=== PATIENT | male | born 1950 | race Caucasian/White ===

== ENCOUNTER → 2017-10-21 08:41 | Outpatient (CLI) | payer MEDICARE, OTHER, SELFPAY ==
--- NOTE | 2017-10-21 | DI.US.S_ITS ---
PROCEDURE: US ABDOMEN COMPLETE INDICATIONS: HEALTH SCREENING FOR POSSIBLE RENAL TRANSPLANT TECHNIQUE: Real-time scanning was performed of the abdominal and retroperitoneal organs, with image documentation. COMPARISON: None. FINDINGS: Liver: Liver is normal in size and homogeneous in echotexture. Gallbladder: Surgically absent. Biliary ducts: Intrahepatic bile ducts are non-dilated. Extrahepatic bile duct caliber measures 11 mm. Normal is 6-7 mm or less in diameter, or 10 mm or less post-cholecystectomy. Pancreas: Not visualized. Spleen: Spleen is normal in size and homogeneous in echotexture. Kidneys: Surgically absent. Aorta: Visualized aorta is normal in caliber at less than 3 cm. [place]: None visualized. IVC: Intrahepatic inferior vena cava is patent. Miscellaneous: No free abdominal fluid. IMPRESSION: Limited exam demonstrating no acute abnormalities. Dictated by: Tony CARRASCO Interpreted: Kit Armas MD on 10/21/2017 at 10:11 Approved by: Som Armas M.D. on 10/21/2017 at 10:48
--- NOTE | 2017-10-21 | DI.RAD.S_ITS ---
PROCEDURE: XR CHEST 2V INDICATIONS: HEALTH SCREENING FOR POSSIBLE RENAL TRANSPLANT TECHNIQUE: 2 views of the chest were acquired. COMPARISON: Located Within [facility], , CHEST 1 VIEW, 06/11/2017, 3:14. FINDINGS: Surgical changes and devices: Tunneled hemodialysis catheter is unchanged. Lungs and pleura: No pleural effusions or pneumothorax. Lungs are clear. Mediastinum: Mediastinal contours are normal. Heart size is normal. Bones and chest wall: No suspicious bony abnormalities. There is DISH of the mid thoracic spine. Soft tissues appear unremarkable. IMPRESSION: No acute cardiopulmonary findings. Dictated by: Mishel Mccann M.D. on 10/21/2017 at 9:20 Approved by: Mishel Mccann M.D. on 10/21/2017 at 9:21
== END ==
PROVIDERS: Visit Provider Student in an Organized Health Care Education/Training Program
DX: N18.6 End stage renal disease (principal); Z76.82 Awaiting organ transplant status
CPT/HCPCS: 71046; 76700

== ENCOUNTER → 2019-02-20 12:11 | Outpatient (CLI) | payer MEDICARE, OTHER, SELFPAY ==
[2019-02-23 09:09] LABS: Sex Hormone Binding Globulin 51 nmol/L (22-77); Testosterone, Bioavailable 58.9 ng/dL (15.0-150.0); Testosterone, Total 347 ng/dL (250-1100); Testosterone,Free 31.3 pg/mL (6.0-73.0)
[2019-02-26 10:32] LABS: Albumin 4.1
== END ==
DX: E29.1 Testicular hypofunction (principal)
CPT/HCPCS: 36415; 82040; 84270; 84403

== ENCOUNTER → 2019-06-08 14:19 | Outpatient (CLI) | payer MEDICARE, OTHER, SELFPAY ==
--- NOTE | 2019-06-08 | DI.RAD.S_ITS ---
PROCEDURE: XR CHEST 2V INDICATIONS: SOB TECHNIQUE: 2 views of the chest were acquired. COMPARISON: [facility], CR, XR CHEST 2V, 10/21/2017, 8:56. FINDINGS: Surgical changes and devices: Right upper quadrant surgical clips.. Lungs and pleura: Lungs are clear. No pleural effusions or pneumothorax. Mediastinum: Mediastinal contours are normal. Heart size is normal. Bones and chest wall: No suspicious bony abnormalities. Soft tissues appear unremarkable. IMPRESSION: No acute disease Dictated by: Edmond Goodwin M.D. on 06/08/2019 at 16:30 Approved by: dEmond Goodwin M.D. on 06/08/2019 at 16:31
== END ==
PROVIDERS: Visit Provider Student in an Organized Health Care Education/Training Program
DX: R06.02 Shortness of breath (principal)
CPT/HCPCS: 71046

== ENCOUNTER → 2019-12-05 09:32 | Outpatient (CLI) | payer MEDICARE, OTHER, SELFPAY ==
[2019-12-05 10:47] LABS: Add Manual Diff / Slide Review NO; Basophils Absolute Auto 100 /uL (0-100); Basophils Percent Auto 0.6 % (0-2); Eosinophils Absolute Auto 0 /uL (0-450); Eosinophils Percent Auto 0.2 % (2-4); Hematocrit 27.3 % (41-53); Hemoglobin 8.7 g/dL (13.5-17.5); Lymphocytes Absolute Auto 500 /uL (1100-4500); Mean Corpuscular HGB Conc 31.9 % (30-36); Mean Corpuscular Hemoglobin 30.4 PG (26-34); Mean Corpuscular Volume 95.3 fL (80-100); Monocytes Absolute Auto 500 /uL (0-900); Monocytes Percent Auto 5.3 % (3-14); Neutrophils Absolute Auto 8400 /uL (1500-7000); Neutrophils Percent Auto 88.9 % (50-75); Platelet Count 292 X10^3/uL (150-400); Red Blood Cell Count 2.86 X10^6/uL (4.5-5.9); Red Cell Distribution Width 17.8 % (11.6-14.8); White Blood Cell Count 9.5 X10^3/uL (4.5-11.0)
[2019-12-05 11:02] LABS: Cholesterol 137 mg/dL (140-199); HDL Cholesterol 48 mg/dL (40-60); LDL Cholesterol Calculated 48 mg/dL (<100); Triglycerides 205 mg/dL (35-150)
[2019-12-05 11:04] LABS: Alanine Aminotransferase 18 IU/L (<50); Albumin 4.3 g/dL (3.5-5.0); Albumin Globulin Ratio 1.5 (1.0-2.8); Alkaline Phosphatase 129 U/L (38-126); Aspartate Aminotransferase 26 IU/L (17-59); BUN Creatinine Ratio 21.9 (6-22); Bilirubin Total 0.4 mg/dL (0.2-1.3); Blood Urea Nitrogen 77 mg/dL (9-20); Calcium 10.5 mg/dL (8.4-10.2); Carbon Dioxide 16 mmol/L (22-32); Chloride 119 mmol/L (98-107); Estimated Glomerular Filt Rate 17.3 mL/min (>60); Globulin 2.9 g/dL (1.7-4.1); Glucose 98 mg/dL (80-110); HEMOLYSIS 17 (0-50); Magnesium 2.2 mg/dL (1.6-2.3); Phosphorous 4.4 mg/dL (2.3-3.7); Sodium 145 mmol/L (137-145); Total Protein 7.2 g/dL (6.3-8.2)
[2019-12-05 11:59] LABS: Hemoglobin A1C% w Est Avg Glu 6.5 % (4.0-6.0)
[2019-12-06 07:44] LABS: Tacrolimus 6.7 ng/mL (2.0-20.0)
== END ==
PROVIDERS: Referring Provider Internal Medicine Nephrology; Visit Provider Internal Medicine
DX: E78.2 Mixed hyperlipidemia (principal); E11.9 Type 2 diabetes mellitus without complications; Z94.0 Kidney transplant status; Z48.298 Encounter for aftercare following other organ transplant; T86.90 Unspecified complication of unspecified transplanted organ and tissue; E83.40 Disorders of magnesium metabolism, unspecified
CPT/HCPCS: 80053; 80061; 80197; 83036; 83735; 84100; 85025

== ENCOUNTER → 2019-12-14 08:49 | Outpatient (CLI) | payer MEDICARE, OTHER, SELFPAY ==
[2019-12-14 09:36] LABS: Add Manual Diff / Slide Review NO; Basophils Absolute Auto 0 /uL (0-100); Basophils Percent Auto 0.8 % (0-2); Eosinophils Absolute Auto 100 /uL (0-450); Eosinophils Percent Auto 1.4 % (2-4); Hematocrit 25.2 % (41-53); Hemoglobin 8.3 g/dL (13.5-17.5); Lymphocytes Absolute Auto 500 /uL (1100-4500); Mean Corpuscular HGB Conc 32.8 % (30-36); Mean Corpuscular Hemoglobin 31.2 PG (26-34); Mean Corpuscular Volume 94.9 fL (80-100); Monocytes Absolute Auto 500 /uL (0-900); Monocytes Percent Auto 9.1 % (3-14); Neutrophils Absolute Auto 4800 /uL (1500-7000); Neutrophils Percent Auto 79.7 % (50-75); Platelet Count 301 X10^3/uL (150-400); Red Blood Cell Count 2.66 X10^6/uL (4.5-5.9); Red Cell Distribution Width 17.9 % (11.6-14.8)
[2019-12-14 09:51] LABS: Alanine Aminotransferase 10 IU/L (<50); Albumin 3.6 g/dL (3.5-5.0); Albumin Globulin Ratio 1.6 (1.0-2.8); Alkaline Phosphatase 149 U/L (38-126); Aspartate Aminotransferase 15 IU/L (17-59); Bilirubin Total 0.2 mg/dL (0.2-1.3); Blood Urea Nitrogen 34 mg/dL (9-20); Calcium 9.8 mg/dL (8.4-10.2); Carbon Dioxide 18 mmol/L (22-32); Chloride 118 mmol/L (98-107); Estimated Glomerular Filt Rate 24.3 mL/min (>60); Globulin 2.3 g/dL (1.7-4.1); Glucose 167 mg/dL (80-110); HEMOLYSIS < 15 (0-50); Magnesium 1.9 mg/dL (1.6-2.3); Phosphorous 3.1 mg/dL (2.3-3.7); Sodium 141 mmol/L (137-145); Total Protein 5.9 g/dL (6.3-8.2)
[2019-12-14 09:57] LABS: Potassium 5.5 mmol/L (3.4-5.1)
[2019-12-15 08:41] LABS: Tacrolimus 6.7 ng/mL (2.0-20.0)
== END ==
PROVIDERS: Referring Provider Internal Medicine Nephrology; Visit Provider Internal Medicine Nephrology
DX: Z94.0 Kidney transplant status (principal); Z48.298 Encounter for aftercare following other organ transplant; T86.90 Unspecified complication of unspecified transplanted organ and tissue; E83.40 Disorders of magnesium metabolism, unspecified
CPT/HCPCS: 36415; 80053; 80197; 83735; 84100; 85025

== ENCOUNTER → 2019-12-21 08:48 | Outpatient (CLI) | payer MEDICARE, OTHER, SELFPAY ==
[2019-12-21 09:18] LABS: Add Manual Diff / Slide Review NO; Basophils Absolute Auto 100 /uL (0-100); Basophils Percent Auto 0.7 % (0-2); Eosinophils Absolute Auto 100 /uL (0-450); Eosinophils Percent Auto 1.4 % (2-4); Hematocrit 28.1 % (41-53); Hemoglobin 9.2 g/dL (13.5-17.5); Lymphocytes Absolute Auto 500 /uL (1100-4500); Lymphocytes Percent Auto 6.8 % (25-40); Mean Corpuscular HGB Conc 32.6 % (30-36); Mean Corpuscular Volume 94.8 fL (80-100); Monocytes Absolute Auto 700 /uL (0-900); Monocytes Percent Auto 8.9 % (3-14); Neutrophils Absolute Auto 6600 /uL (1500-7000); Neutrophils Percent Auto 82.2 % (50-75); Platelet Count 283 X10^3/uL (150-400); Red Blood Cell Count 2.97 X10^6/uL (4.5-5.9); Red Cell Distribution Width 18.4 % (11.6-14.8)
[2019-12-21 09:27] LABS: Alanine Aminotransferase 12 IU/L (<50); Albumin 4.2 g/dL (3.5-5.0); Albumin Globulin Ratio 1.7 (1.0-2.8); Alkaline Phosphatase 143 U/L (38-126); Aspartate Aminotransferase 19 IU/L (17-59); BUN Creatinine Ratio 21.4 (6-22); Bilirubin Total 0.4 mg/dL (0.2-1.3); Blood Urea Nitrogen 48 mg/dL (9-20); Carbon Dioxide 20 mmol/L (22-32); Chloride 113 mmol/L (98-107); Estimated Glomerular Filt Rate 29.1 mL/min (>60); Globulin 2.5 g/dL (1.7-4.1); Glucose 189 mg/dL (80-110); HEMOLYSIS < 15 (0-50); Magnesium 1.7 mg/dL (1.6-2.3); Phosphorous 2.9 mg/dL (2.3-3.7); Potassium 5.1 mmol/L (3.4-5.1); Sodium 139 mmol/L (137-145); Total Protein 6.7 g/dL (6.3-8.2)
[2019-12-21 12:01] LABS: Appearance Urine UA CLEAR; Bilirubin Urine UA NEGATIVE (NEGATIVE); Color Urine UA YELLOW; Glucose Urine UA TRACE g/dL (Negative); Ketones Urine UA NEGATIVE (NEGATIVE); Leukocyte Esterase Urine UA NEGATIVE (NEGATIVE); Nitrite Urine UA NEGATIVE (Negative); Occult Blood Urine UA NEGATIVE (Negative); Protein Urine UA TRACE (Negative); Urobilinogen Urine UA 0.2 E.U./dL (0.2); pH Urine UA 6.5 (4.5-8.0)
[2019-12-21 12:09] LABS: Amorphous Sediment Urine 2+; Bacteria Urine Occasional (0-1); Culture Indicated Urine Specimen Cultured; RBC Urine 0-1/HPF (0-5/HPF); WBC Urine 1-5/HPF (0-5/HPF)
[2019-12-22 08:09] LABS: Tacrolimus 6.4 ng/mL (2.0-20.0)
[2019-12-22 12:08] LABS: Creatinine Urine Random 85.8 mg/dL; Protein (Total) Urine Random 72 mg/dL (0-12); Protein Creatinine Ratio Urine 0.83 GRAM/24H
== END ==
PROVIDERS: PCP Internal Medicine; Referring Provider Internal Medicine; Visit Provider Internal Medicine Nephrology
DX: Z97.0 Presence of artificial eye (principal); Z48.298 Encounter for aftercare following other organ transplant; T86.90 Unspecified complication of unspecified transplanted organ and tissue; N39.0 Urinary tract infection, site not specified; Z94.0 Kidney transplant status; E83.40 Disorders of magnesium metabolism, unspecified
CPT/HCPCS: 36415; 80053; 80197; 81001; 82570; 83735; 84100; 84156; 85025; 87077; 87086; 87186

== ENCOUNTER → 2019-12-25 08:56 | Outpatient (CLI) | payer MEDICARE, OTHER, SELFPAY | PROVIDERS: PCP Internal Medicine; Referring Provider Internal Medicine Nephrology; Visit Provider Internal Medicine Nephrology | DX: N39.0 Urinary tract infection, site not specified (principal) | CPT/HCPCS: 87077; 87086; 87186; 87205 ==

== ENCOUNTER → 2019-12-30 07:30 | Outpatient (CLI) | payer MEDICARE, OTHER, SELFPAY ==
[2019-12-30 07:56] LABS: Add Manual Diff / Slide Review NO; Basophils Absolute Auto 100 /uL (0-100); Basophils Percent Auto 0.9 % (0-2); Eosinophils Absolute Auto 200 /uL (0-450); Eosinophils Percent Auto 2.1 % (2-4); Hematocrit 28.5 % (41-53); Hemoglobin 9.3 g/dL (13.5-17.5); Lymphocytes Absolute Auto 600 /uL (1100-4500); Lymphocytes Percent Auto 8.7 % (25-40); Mean Corpuscular HGB Conc 32.8 % (30-36); Mean Corpuscular Hemoglobin 31.2 PG (26-34); Mean Corpuscular Volume 95.1 fL (80-100); Monocytes Absolute Auto 800 /uL (0-900); Monocytes Percent Auto 10.9 % (3-14); Neutrophils Absolute Auto 5700 /uL (1500-7000); Neutrophils Percent Auto 77.4 % (50-75); Platelet Count 229 X10^3/uL (150-400); Red Cell Distribution Width 17.8 % (11.6-14.8); White Blood Cell Count 7.4 X10^3/uL (4.5-11.0)
[2019-12-30 08:06] LABS: Alanine Aminotransferase 11 IU/L (<50); Albumin 3.9 g/dL (3.5-5.0); Albumin Globulin Ratio 1.6 (1.0-2.8); Alkaline Phosphatase 122 U/L (38-126); Aspartate Aminotransferase 17 IU/L (17-59); BUN Creatinine Ratio 14.7 (6-22); Bilirubin Total 0.4 mg/dL (0.2-1.3); Blood Urea Nitrogen 33 mg/dL (9-20); Calcium 9.8 mg/dL (8.4-10.2); Carbon Dioxide 23 mmol/L (22-32); Chloride 111 mmol/L (98-107); Estimated Glomerular Filt Rate 29.1 mL/min (>60); Globulin 2.5 g/dL (1.7-4.1); Glucose 154 mg/dL (80-110); HEMOLYSIS < 15 (0-50); Magnesium 1.6 mg/dL (1.6-2.3); Phosphorous 2.9 mg/dL (2.3-3.7); Potassium 4.3 mmol/L (3.4-5.1); Sodium 141 mmol/L (137-145); Total Protein 6.4 g/dL (6.3-8.2)
[2019-12-31 14:09] LABS: Tacrolimus 4.2 ng/mL (2.0-20.0)
== END ==
PROVIDERS: PCP Internal Medicine; Referring Provider Internal Medicine Nephrology; Visit Provider Internal Medicine Nephrology
DX: T86.90 Unspecified complication of unspecified transplanted organ and tissue (principal); E83.40 Disorders of magnesium metabolism, unspecified; Z94.0 Kidney transplant status; Z48.298 Encounter for aftercare following other organ transplant
CPT/HCPCS: 36415; 80053; 80197; 83735; 84100; 85025

== ENCOUNTER → 2020-01-05 08:01 | Outpatient (CLI) | payer MEDICARE, OTHER, SELFPAY ==
[2020-01-05 08:35] LABS: Hemoglobin 9.5 g/dL (13.5-17.5); White Blood Cell Count 5.6 X10^3/uL (4.5-11.0)
[2020-01-05 08:38] LABS: Hematocrit 29.1 % (41-53); Mean Corpuscular HGB Conc 32.7 % (30-36); Mean Corpuscular Hemoglobin 31.1 PG (26-34); Platelet Count 273 X10^3/uL (150-400); Red Blood Cell Count 3.07 X10^6/uL (4.5-5.9); Red Cell Distribution Width 17.6 % (11.6-14.8)
[2020-01-05 08:43] LABS: Add Manual Diff / Slide Review YES
[2020-01-05 08:49] LABS: Alanine Aminotransferase 10 IU/L (<50); Albumin 3.8 g/dL (3.5-5.0); Alkaline Phosphatase 141 U/L (38-126); Aspartate Aminotransferase 15 IU/L (17-59); BUN Creatinine Ratio 17.9 (6-22); Bilirubin Total 0.3 mg/dL (0.2-1.3); Blood Urea Nitrogen 34 mg/dL (9-20); Calcium 9.8 mg/dL (8.4-10.2); Carbon Dioxide 26 mmol/L (22-32); Chloride 110 mmol/L (98-107); Estimated Glomerular Filt Rate 35.2 mL/min (>60); Glucose 208 mg/dL (80-110); Magnesium 1.7 mg/dL (1.6-2.3); Phosphorous 2.6 mg/dL (2.3-3.7); Potassium 4.7 mmol/L (3.4-5.1); Sodium 140 mmol/L (137-145)
[2020-01-05 08:50] LABS: Albumin Globulin Ratio 1.7 (1.0-2.8); Globulin 2.2 g/dL (1.7-4.1); HEMOLYSIS < 15 (0-50)
[2020-01-05 09:10] LABS: Neutrophils Absolute Manual 4088 /uL (3000-5900); Total Cells Counted 100
[2020-01-05 09:11] LABS: Anisocytosis 1+
[2020-01-06 16:29] LABS: Tacrolimus 5.5 ng/mL (2.0-20.0)
== END ==
PROVIDERS: PCP Internal Medicine; Referring Provider Internal Medicine Nephrology; Visit Provider Internal Medicine Nephrology
DX: Z48.298 Encounter for aftercare following other organ transplant (principal); Z94.0 Kidney transplant status; T86.90 Unspecified complication of unspecified transplanted organ and tissue; E83.40 Disorders of magnesium metabolism, unspecified
CPT/HCPCS: 36415; 80053; 80197; 83735; 84100; 85025

== ENCOUNTER → 2020-01-12 07:34 | Outpatient (CLI) | payer MEDICARE, OTHER, SELFPAY ==
[2020-01-12 08:39] LABS: Add Manual Diff / Slide Review NO; Basophils Absolute Auto 100 /uL (0-100); Basophils Percent Auto 1.2 % (0-2); Eosinophils Absolute Auto 200 /uL (0-450); Hematocrit 30.3 % (41-53); Lymphocytes Absolute Auto 900 /uL (1100-4500); Lymphocytes Percent Auto 12.6 % (25-40); Mean Corpuscular HGB Conc 32.9 % (30-36); Mean Corpuscular Hemoglobin 31.3 PG (26-34); Monocytes Absolute Auto 700 /uL (0-900); Monocytes Percent Auto 10.2 % (3-14); Neutrophils Absolute Auto 5000 /uL (1500-7000); Platelet Count 242 X10^3/uL (150-400); Red Blood Cell Count 3.19 X10^6/uL (4.5-5.9); Red Cell Distribution Width 16.5 % (11.6-14.8); White Blood Cell Count 6.9 X10^3/uL (4.5-11.0)
[2020-01-12 08:58] LABS: Alanine Aminotransferase 11 IU/L (<50); Albumin 3.7 g/dL (3.5-5.0); Albumin Globulin Ratio 1.7 (1.0-2.8); Alkaline Phosphatase 150 U/L (38-126); Aspartate Aminotransferase 15 IU/L (17-59); BUN Creatinine Ratio 20.9 (6-22); Bilirubin Total 0.3 mg/dL (0.2-1.3); Blood Urea Nitrogen 43 mg/dL (9-20); Calcium 9.9 mg/dL (8.4-10.2); Carbon Dioxide 25 mmol/L (22-32); Chloride 109 mmol/L (98-107); Estimated Glomerular Filt Rate 32.1 mL/min (>60); Globulin 2.2 g/dL (1.7-4.1); Glucose 208 mg/dL (80-110); HEMOLYSIS < 15 (0-50); Magnesium 1.8 mg/dL (1.6-2.3); Phosphorous 3.2 mg/dL (2.3-3.7); Potassium 4.5 mmol/L (3.4-5.1); Sodium 140 mmol/L (137-145); Total Protein 5.9 g/dL (6.3-8.2)
[2020-01-13 20:52] LABS: Tacrolimus 6.7 ng/mL (2.0-20.0)
== END ==
PROVIDERS: PCP Internal Medicine; Referring Provider Internal Medicine Nephrology; Visit Provider Internal Medicine Nephrology
DX: Z48.298 Encounter for aftercare following other organ transplant (principal); Z94.0 Kidney transplant status; T86.90 Unspecified complication of unspecified transplanted organ and tissue; E83.40 Disorders of magnesium metabolism, unspecified
CPT/HCPCS: 36415; 80053; 80197; 83735; 84100; 85025

== ENCOUNTER → 2020-01-27 08:26 | Outpatient (CLI) | payer MEDICARE, OTHER, SELFPAY ==
[2020-01-27 08:40] LABS: Bacteria Urine None Seen
[2020-01-27 08:55] LABS: Add Manual Diff / Slide Review NO; Basophils Absolute Auto 100 /uL (0-100); Basophils Percent Auto 0.7 % (0-2); Eosinophils Absolute Auto 200 /uL (0-450); Hematocrit 32.1 % (41-53); Hemoglobin 10.5 g/dL (13.5-17.5); Lymphocytes Absolute Auto 1100 /uL (1100-4500); Lymphocytes Percent Auto 13.3 % (25-40); Mean Corpuscular HGB Conc 32.9 % (30-36); Mean Corpuscular Hemoglobin 31.3 PG (26-34); Mean Corpuscular Volume 95.2 fL (80-100); Monocytes Absolute Auto 700 /uL (0-900); Monocytes Percent Auto 8.5 % (3-14); Neutrophils Absolute Auto 6300 /uL (1500-7000); Neutrophils Percent Auto 75.5 % (50-75); Platelet Count 224 X10^3/uL (150-400); Red Blood Cell Count 3.37 X10^6/uL (4.5-5.9); Red Cell Distribution Width 16.3 % (11.6-14.8); White Blood Cell Count 8.3 X10^3/uL (4.5-11.0)
[2020-01-27 09:07] LABS: Alanine Aminotransferase 12 IU/L (<50); Albumin 3.9 g/dL (3.5-5.0); Albumin Globulin Ratio 1.6 (1.0-2.8); Alkaline Phosphatase 123 U/L (38-126); Aspartate Aminotransferase 18 IU/L (17-59); BUN Creatinine Ratio 26.7 (6-22); Bilirubin Total 0.4 mg/dL (0.2-1.3); Blood Urea Nitrogen 50 mg/dL (9-20); Calcium 9.8 mg/dL (8.4-10.2); Carbon Dioxide 26 mmol/L (22-32); Chloride 108 mmol/L (98-107); Estimated Glomerular Filt Rate 35.9 mL/min (>60); Globulin 2.5 g/dL (1.7-4.1); Glucose 257 mg/dL (80-110); HEMOLYSIS 18 (0-50); Magnesium 1.8 mg/dL (1.6-2.3); Potassium 4.5 mmol/L (3.4-5.1); Sodium 140 mmol/L (137-145); Total Protein 6.4 g/dL (6.3-8.2)
[2020-01-27 10:59] LABS: Appearance Urine UA CLEAR; Bilirubin Urine UA NEGATIVE (NEGATIVE); Color Urine UA YELLOW; Glucose Urine UA 2+ g/dL (Negative); Ketones Urine UA NEGATIVE (NEGATIVE); Leukocyte Esterase Urine UA NEGATIVE (NEGATIVE); Nitrite Urine UA NEGATIVE (Negative); Occult Blood Urine UA 3+ (Negative); Protein Urine UA TRACE (Negative); Specific Gravity Urine UA 1.015 (1.000-1.035); Urobilinogen Urine UA 0.2 E.U./dL (0.2)
[2020-01-27 11:22] LABS: Creatinine Urine Random 89.5 mg/dL; Protein (Total) Urine Random 58 mg/dL (0-12); Protein Creatinine Ratio Urine 0.64 GRAM/24H
[2020-01-27 12:18] LABS: Culture Indicated Urine Cult Not Indicated; RBC Urine 5-10/HPF (0-5/HPF); Squamous Epithelial Cell Urine 0-1 /HPF (0-5/HPF); Transitional Epi Cells Urine 0-1/HPF (0-5/HPF); WBC Urine 0-1/HPF (0-5/HPF)
[2020-01-28 15:48] LABS: Tacrolimus 7.4 ng/mL (2.0-20.0)
== END ==
PROVIDERS: PCP Internal Medicine; Referring Provider Internal Medicine Nephrology; Visit Provider Internal Medicine Nephrology
DX: Z94.0 Kidney transplant status (principal); Z48.298 Encounter for aftercare following other organ transplant; T86.90 Unspecified complication of unspecified transplanted organ and tissue; E83.40 Disorders of magnesium metabolism, unspecified
CPT/HCPCS: 36415; 80053; 80197; 81001; 82570; 83735; 84100; 84156; 85025

== ENCOUNTER → 2020-01-28 13:43 | Outpatient (CLI) | payer MEDICARE, OTHER, SELFPAY | PROVIDERS: PCP Internal Medicine; Visit Provider Specialist | DX: N39.0 Urinary tract infection, site not specified (principal); N31.2 Flaccid neuropathic bladder, not elsewhere classified; R33.9 Retention of urine, unspecified; Z85.528 Personal history of other malignant neoplasm of kidney; Z94.0 Kidney transplant status | CPT/HCPCS: 81002; 87077; 87086; 87186; 99215 ==

== ENCOUNTER → 2020-02-02 08:02 | Outpatient (CLI) | payer MEDICARE, OTHER, SELFPAY ==
[2020-02-02 10:01] LABS: Add Manual Diff / Slide Review NO; Basophils Absolute Auto 100 /uL (0-100); Basophils Percent Auto 0.8 % (0-2); Eosinophils Absolute Auto 300 /uL (0-450); Eosinophils Percent Auto 2.8 % (2-4); Hemoglobin 11.3 g/dL (13.5-17.5); Lymphocytes Absolute Auto 1200 /uL (1100-4500); Lymphocytes Percent Auto 13.1 % (25-40); Mean Corpuscular HGB Conc 32.4 % (30-36); Mean Corpuscular Hemoglobin 30.9 PG (26-34); Mean Corpuscular Volume 95.4 fL (80-100); Monocytes Absolute Auto 700 /uL (0-900); Monocytes Percent Auto 7.6 % (3-14); Neutrophils Absolute Auto 7100 /uL (1500-7000); Neutrophils Percent Auto 75.7 % (50-75); Platelet Count 255 X10^3/uL (150-400); Red Blood Cell Count 3.67 X10^6/uL (4.5-5.9); Red Cell Distribution Width 15.6 % (11.6-14.8); White Blood Cell Count 9.4 X10^3/uL (4.5-11.0)
[2020-02-02 10:12] LABS: Alanine Aminotransferase 11 IU/L (<50); Albumin 4.1 g/dL (3.5-5.0); Albumin Globulin Ratio 1.6 (1.0-2.8); Alkaline Phosphatase 130 U/L (38-126); Aspartate Aminotransferase 16 IU/L (17-59); BUN Creatinine Ratio 28.4 (6-22); Bilirubin Total 0.3 mg/dL (0.2-1.3); Blood Urea Nitrogen 56 mg/dL (9-20); Carbon Dioxide 29 mmol/L (22-32); Chloride 107 mmol/L (98-107); Estimated Glomerular Filt Rate 33.8 mL/min (>60); Globulin 2.6 g/dL (1.7-4.1); Glucose 241 mg/dL (80-110); HEMOLYSIS < 15 (0-50); Magnesium 1.9 mg/dL (1.6-2.3); Phosphorous 3.2 mg/dL (2.3-3.7); Potassium 4.2 mmol/L (3.4-5.1); Sodium 143 mmol/L (137-145); Total Protein 6.7 g/dL (6.3-8.2)
[2020-02-02 11:03] LABS: Creatinine Urine Random 92.5 mg/dL; Protein (Total) Urine Random 52 mg/dL (0-12); Protein Creatinine Ratio Urine 0.56 GRAM/24H
[2020-02-02 11:13] LABS: Appearance Urine UA CLEAR; Bilirubin Urine UA NEGATIVE (NEGATIVE); Color Urine UA YELLOW; Glucose Urine UA 1+ g/dL (Negative); Ketones Urine UA NEGATIVE (NEGATIVE); Leukocyte Esterase Urine UA TRACE (NEGATIVE); Nitrite Urine UA NEGATIVE (Negative); Occult Blood Urine UA NEGATIVE (Negative); Protein Urine UA TRACE (Negative); Urobilinogen Urine UA 0.2 E.U./dL (0.2)
[2020-02-02 11:25] LABS: RBC Urine 0-1/HPF (0-5/HPF); WBC Urine 1-5/HPF (0-5/HPF)
[2020-02-02 11:26] LABS: Bacteria Urine Occasional (0-1); Culture Indicated Urine Specimen Cultured; Squamous Epithelial Cell Urine 0-1 /HPF (0-5/HPF)
[2020-02-03 12:45] LABS: Tacrolimus 5.7 ng/mL (2.0-20.0)
== END ==
PROVIDERS: PCP Internal Medicine; Referring Provider Internal Medicine Nephrology; Visit Provider Internal Medicine Nephrology
DX: Z94.0 Kidney transplant status (principal); Z48.298 Encounter for aftercare following other organ transplant; T86.90 Unspecified complication of unspecified transplanted organ and tissue; E83.40 Disorders of magnesium metabolism, unspecified; N39.0 Urinary tract infection, site not specified
CPT/HCPCS: 36415; 80053; 80197; 81001; 82570; 83735; 84100; 84156; 85025; 87077; 87086; 87186

== ENCOUNTER → 2020-02-22 07:55 | Outpatient (CLI) | payer MEDICARE, OTHER, SELFPAY ==
[2020-02-22 08:25] LABS: Add Manual Diff / Slide Review NO; Basophils Absolute Auto 100 /uL (0-100); Basophils Percent Auto 0.7 % (0-2); Eosinophils Absolute Auto 200 /uL (0-450); Eosinophils Percent Auto 2.2 % (2-4); Hematocrit 36.7 % (41-53); Hemoglobin 11.8 g/dL (13.5-17.5); Lymphocytes Absolute Auto 1700 /uL (1100-4500); Lymphocytes Percent Auto 23.1 % (25-40); Mean Corpuscular Hemoglobin 30.9 PG (26-34); Mean Corpuscular Volume 96.5 fL (80-100); Monocytes Absolute Auto 700 /uL (0-900); Neutrophils Absolute Auto 4900 /uL (1500-7000); Platelet Count 238 X10^3/uL (150-400); Red Cell Distribution Width 14.6 % (11.6-14.8); White Blood Cell Count 7.5 X10^3/uL (4.5-11.0)
[2020-02-22 08:35] LABS: Alanine Aminotransferase 12 IU/L (<50); Albumin 4.1 g/dL (3.5-5.0); Albumin Globulin Ratio 1.6 (1.0-2.8); Alkaline Phosphatase 125 U/L (38-126); Aspartate Aminotransferase 17 IU/L (17-59); BUN Creatinine Ratio 25.4 (6-22); Bilirubin Total 0.3 mg/dL (0.2-1.3); Blood Urea Nitrogen 49 mg/dL (9-20); Calcium 9.9 mg/dL (8.4-10.2); Carbon Dioxide 26 mmol/L (22-32); Chloride 111 mmol/L (98-107); Estimated Glomerular Filt Rate 34.6 mL/min (>60); Globulin 2.6 g/dL (1.7-4.1); Glucose 82 mg/dL (80-110); HEMOLYSIS < 15 (0-50); Magnesium 1.8 mg/dL (1.6-2.3); Phosphorous 3.6 mg/dL (2.3-3.7); Potassium 3.9 mmol/L (3.4-5.1); Sodium 141 mmol/L (137-145); Total Protein 6.7 g/dL (6.3-8.2)
[2020-02-23 09:15] LABS: Tacrolimus 7.7 ng/mL (2.0-20.0)
== END ==
PROVIDERS: PCP Internal Medicine; Referring Provider Internal Medicine Nephrology; Visit Provider Internal Medicine Nephrology
DX: Z94.0 Kidney transplant status (principal); Z48.298 Encounter for aftercare following other organ transplant; T86.90 Unspecified complication of unspecified transplanted organ and tissue; E83.40 Disorders of magnesium metabolism, unspecified
CPT/HCPCS: 36415; 80053; 80197; 83735; 84100; 85025

== ENCOUNTER → 2020-03-02 12:35 | Outpatient (CLI) | payer MEDICARE, OTHER, SELFPAY ==
[2020-03-02 12:44] LABS: RBC Urine None Seen (0-5/HPF); Specimen Label ALLOSURE KIT
[2020-03-02 13:21] LABS: Appearance Urine UA CLEAR; Bilirubin Urine UA NEGATIVE (NEGATIVE); Color Urine UA YELLOW; Glucose Urine UA 1+ g/dL (Negative); Ketones Urine UA NEGATIVE (NEGATIVE); Leukocyte Esterase Urine UA 1+ (NEGATIVE); Nitrite Urine UA NEGATIVE (Negative); Occult Blood Urine UA NEGATIVE (Negative); Protein Urine UA TRACE (Negative); Urobilinogen Urine UA 0.2 E.U./dL (0.2)
[2020-03-02 13:29] LABS: Bacteria Urine Few (2-10); Squamous Epithelial Cell Urine 1-5 /HPF (0-5/HPF); WBC Urine 5-10/HPF (0-5/HPF)
== END ==
PROVIDERS: PCP Internal Medicine
DX: N39.0 Urinary tract infection, site not specified (principal)
CPT/HCPCS: 81001; 87077; 87086; 87186; 87205

== ENCOUNTER → 2020-03-21 09:36 | Outpatient (CLI) | payer MEDICARE, OTHER, SELFPAY ==
[2020-03-21 10:55] LABS: Add Manual Diff / Slide Review NO; Basophils Absolute Auto 100 /uL (0-100); Basophils Percent Auto 0.6 % (0-2); Eosinophils Absolute Auto 200 /uL (0-450); Eosinophils Percent Auto 1.5 % (2-4); Hematocrit 37.7 % (41-53); Hemoglobin 12.3 g/dL (13.5-17.5); Lymphocytes Absolute Auto 1600 /uL (1100-4500); Lymphocytes Percent Auto 15.6 % (25-40); Mean Corpuscular HGB Conc 32.6 % (30-36); Mean Corpuscular Hemoglobin 30.5 PG (26-34); Mean Corpuscular Volume 93.7 fL (80-100); Monocytes Absolute Auto 900 /uL (0-900); Monocytes Percent Auto 8.7 % (3-14); Neutrophils Absolute Auto 7400 /uL (1500-7000); Neutrophils Percent Auto 73.6 % (50-75); Platelet Count 253 X10^3/uL (150-400); Red Blood Cell Count 4.02 X10^6/uL (4.5-5.9); Red Cell Distribution Width 13.4 % (11.6-14.8); White Blood Cell Count 10.1 X10^3/uL (4.5-11.0)
[2020-03-21 10:58] LABS: Appearance Urine UA CLEAR; Bilirubin Urine UA NEGATIVE (NEGATIVE); Color Urine UA YELLOW; Glucose Urine UA NEGATIVE (Negative); Ketones Urine UA NEGATIVE (NEGATIVE); Leukocyte Esterase Urine UA TRACE (NEGATIVE); Nitrite Urine UA NEGATIVE (Negative); Occult Blood Urine UA NEGATIVE (Negative); Protein Urine UA TRACE (Negative); Urobilinogen Urine UA 0.2 E.U./dL (0.2); pH Urine UA 5.5 (4.5-8.0)
[2020-03-21 11:22] LABS: Alanine Aminotransferase 9 IU/L (<50); Albumin Globulin Ratio 1.4 (1.0-2.8); Alkaline Phosphatase 122 U/L (38-126); Aspartate Aminotransferase 14 IU/L (17-59); BUN Creatinine Ratio 21.2 (6-22); Bilirubin Total 0.3 mg/dL (0.2-1.3); Blood Urea Nitrogen 51 mg/dL (9-20); Calcium 10.3 mg/dL (8.4-10.2); Carbon Dioxide 31 mmol/L (22-32); Chloride 105 mmol/L (98-107); Estimated Glomerular Filt Rate 26.7 mL/min (>60); Globulin 2.8 g/dL (1.7-4.1); Glucose 192 mg/dL (80-110); HEMOLYSIS < 15 (0-50); Magnesium 1.7 mg/dL (1.6-2.3); Phosphorous 4.3 mg/dL (2.3-3.7); Potassium 4.1 mmol/L (3.4-5.1); Sodium 141 mmol/L (137-145); Total Protein 6.8 g/dL (6.3-8.2)
[2020-03-21 11:30] LABS: Creatinine Urine Random 110.5 mg/dL; Protein (Total) Urine Random 56 mg/dL (0-12)
[2020-03-21 11:44] LABS: RBC Urine 0-1/HPF (0-5/HPF)
[2020-03-21 11:45] LABS: Bacteria Urine Few (2-10); Culture Indicated Urine Specimen Cultured; Squamous Epithelial Cell Urine 1-5 /HPF (0-5/HPF); WBC Urine 10-30/HPF (0-5/HPF)
[2020-03-22 11:36] LABS: Tacrolimus 10.9 ng/mL (2.0-20.0)
== END ==
PROVIDERS: PCP Internal Medicine; Referring Provider Internal Medicine Nephrology; Visit Provider Internal Medicine Nephrology
DX: Z48.298 Encounter for aftercare following other organ transplant (principal); Z94.0 Kidney transplant status; T86.90 Unspecified complication of unspecified transplanted organ and tissue; E83.40 Disorders of magnesium metabolism, unspecified
CPT/HCPCS: 36415; 80053; 80197; 81001; 82570; 83735; 84100; 84156; 85025; 87077; 87086; 87147; 87186

== ENCOUNTER → 2020-03-29 08:39 | Outpatient (CLI) | payer MEDICARE, OTHER, SELFPAY ==
[2020-03-29 08:53] LABS: RBC Urine None Seen (0-5/HPF)
[2020-03-29 09:47] LABS: Appearance Urine UA CLEAR; Bilirubin Urine UA NEGATIVE (NEGATIVE); Color Urine UA YELLOW; Glucose Urine UA NEGATIVE (Negative); Ketones Urine UA NEGATIVE (NEGATIVE); Leukocyte Esterase Urine UA TRACE (NEGATIVE); Nitrite Urine UA NEGATIVE (Negative); Occult Blood Urine UA NEGATIVE (Negative); Protein Urine UA TRACE (Negative); Urobilinogen Urine UA 0.2 E.U./dL (0.2); pH Urine UA 5.5 (4.5-8.0)
[2020-03-29 09:53] LABS: Add Manual Diff / Slide Review NO; Basophils Absolute Auto 100 /uL (0-100); Basophils Percent Auto 0.7 % (0-2); Eosinophils Absolute Auto 200 /uL (0-450); Eosinophils Percent Auto 1.7 % (2-4); Hematocrit 36.8 % (41-53); Hemoglobin 11.7 g/dL (13.5-17.5); Lymphocytes Absolute Auto 1600 /uL (1100-4500); Lymphocytes Percent Auto 15.2 % (25-40); Mean Corpuscular HGB Conc 31.8 % (30-36); Mean Corpuscular Hemoglobin 29.8 PG (26-34); Mean Corpuscular Volume 93.7 fL (80-100); Monocytes Absolute Auto 900 /uL (0-900); Monocytes Percent Auto 8.3 % (3-14); Neutrophils Absolute Auto 7900 /uL (1500-7000); Neutrophils Percent Auto 74.1 % (50-75); Platelet Count 243 X10^3/uL (150-400); Red Blood Cell Count 3.92 X10^6/uL (4.5-5.9); Red Cell Distribution Width 13.4 % (11.6-14.8); White Blood Cell Count 10.7 X10^3/uL (4.5-11.0)
[2020-03-29 10:09] LABS: WBC Urine 30-100/HPF (0-5/HPF)
[2020-03-29 10:10] LABS: Bacteria Urine Occasional (0-1); Culture Indicated Urine Specimen Cultured; Squamous Epithelial Cell Urine 0-1 /HPF (0-5/HPF)
[2020-03-29 10:13] LABS: Creatinine Urine Random 96.1 mg/dL; Protein (Total) Urine Random 50 mg/dL (0-12); Protein Creatinine Ratio Urine 0.52 GRAM/24H
[2020-03-29 10:40] LABS: Alanine Aminotransferase 8 IU/L (<50); Albumin 3.7 g/dL (3.5-5.0); Albumin Globulin Ratio 1.5 (1.0-2.8); Alkaline Phosphatase 102 U/L (38-126); Aspartate Aminotransferase 14 IU/L (17-59); BUN Creatinine Ratio 29.4 (6-22); Bilirubin Total 0.3 mg/dL (0.2-1.3); Blood Urea Nitrogen 64 mg/dL (9-20); Calcium 10.1 mg/dL (8.4-10.2); Carbon Dioxide 27 mmol/L (22-32); Chloride 107 mmol/L (98-107); Globulin 2.4 g/dL (1.7-4.1); Glucose 168 mg/dL (80-110); HEMOLYSIS < 15 (0-50); Magnesium 1.9 mg/dL (1.6-2.3); Phosphorous 4.1 mg/dL (2.3-3.7); Potassium 4.1 mmol/L (3.4-5.1); Sodium 141 mmol/L (137-145); Total Protein 6.1 g/dL (6.3-8.2)
[2020-03-30 12:27] LABS: Tacrolimus 10.8 ng/mL (2.0-20.0)
== END ==
PROVIDERS: PCP Internal Medicine; Referring Provider Internal Medicine Nephrology; Visit Provider Internal Medicine Nephrology
DX: Z94.0 Kidney transplant status (principal); Z48.298 Encounter for aftercare following other organ transplant; T86.90 Unspecified complication of unspecified transplanted organ and tissue; E83.40 Disorders of magnesium metabolism, unspecified
CPT/HCPCS: 36415; 80053; 80197; 81001; 82570; 83735; 84100; 84156; 85025; 87077; 87086; 87147; 87185; 87186

== ENCOUNTER → 2020-04-06 10:05 | Outpatient (CLI) | payer MEDICARE, OTHER, SELFPAY ==
[2020-04-06 10:17] LABS: Bacteria Urine None Seen; RBC Urine None Seen (0-5/HPF)
[2020-04-06 10:26] LABS: Add Manual Diff / Slide Review NO; Basophils Absolute Auto 0 /uL (0-100); Basophils Percent Auto 0.5 % (0-2); Eosinophils Absolute Auto 100 /uL (0-450); Eosinophils Percent Auto 1.3 % (2-4); Hematocrit 36.7 % (41-53); Hemoglobin 12.1 g/dL (13.5-17.5); Lymphocytes Absolute Auto 1300 /uL (1100-4500); Lymphocytes Percent Auto 13.1 % (25-40); Mean Corpuscular HGB Conc 32.9 % (30-36); Mean Corpuscular Hemoglobin 30.6 PG (26-34); Mean Corpuscular Volume 92.9 fL (80-100); Monocytes Absolute Auto 700 /uL (0-900); Monocytes Percent Auto 7.1 % (3-14); Neutrophils Absolute Auto 8000 /uL (1500-7000); Platelet Count 249 X10^3/uL (150-400); Red Blood Cell Count 3.95 X10^6/uL (4.5-5.9); Red Cell Distribution Width 13.4 % (11.6-14.8); White Blood Cell Count 10.3 X10^3/uL (4.5-11.0)
[2020-04-06 10:41] LABS: Alanine Aminotransferase 9 IU/L (<50); Albumin Globulin Ratio 1.5 (1.0-2.8); Alkaline Phosphatase 110 U/L (38-126); Aspartate Aminotransferase 14 IU/L (17-59); BUN Creatinine Ratio 25.8 (6-22); Bilirubin Total 0.3 mg/dL (0.2-1.3); Blood Urea Nitrogen 56 mg/dL (9-20); Calcium 10.1 mg/dL (8.4-10.2); Carbon Dioxide 28 mmol/L (22-32); Chloride 108 mmol/L (98-107); Estimated Glomerular Filt Rate 30.1 mL/min (>60); Globulin 2.7 g/dL (1.7-4.1); Glucose 185 mg/dL (80-110); HEMOLYSIS < 15 (0-50); Magnesium 1.9 mg/dL (1.6-2.3); Phosphorous 3.4 mg/dL (2.3-3.7); Potassium 4.1 mmol/L (3.4-5.1); Sodium 142 mmol/L (137-145); Total Protein 6.7 g/dL (6.3-8.2)
[2020-04-06 11:20] LABS: Appearance Urine UA CLEAR; Bilirubin Urine UA NEGATIVE (NEGATIVE); Color Urine UA YELLOW; Glucose Urine UA 1+ g/dL (Negative); Ketones Urine UA NEGATIVE (NEGATIVE); Leukocyte Esterase Urine UA NEGATIVE (NEGATIVE); Nitrite Urine UA NEGATIVE (Negative); Occult Blood Urine UA NEGATIVE (Negative); Protein Urine UA NEGATIVE (Negative); Specific Gravity Urine UA 1.015 (1.000-1.035); Urobilinogen Urine UA 0.2 E.U./dL (0.2)
[2020-04-06 11:36] LABS: Culture Indicated Urine Specimen Cultured; WBC Urine 5-10/HPF (0-5/HPF)
[2020-04-06 11:48] LABS: Creatinine Urine Random 88.5 mg/dL; Protein (Total) Urine Random 47 mg/dL (0-12); Protein Creatinine Ratio Urine 0.53 GRAM/24H
[2020-04-07 09:13] LABS: Tacrolimus 8.9 ng/mL (2.0-20.0)
== END ==
PROVIDERS: PCP Internal Medicine; Referring Provider Internal Medicine Nephrology; Visit Provider Internal Medicine Nephrology
DX: T86.90 Unspecified complication of unspecified transplanted organ and tissue (principal); Z94.0 Kidney transplant status; E83.40 Disorders of magnesium metabolism, unspecified; Z48.298 Encounter for aftercare following other organ transplant; N39.0 Urinary tract infection, site not specified
CPT/HCPCS: 36415; 80053; 80197; 81001; 82570; 83735; 84100; 84156; 85025; 87077; 87086; 87185; 87186

== ENCOUNTER → 2020-04-19 10:14 | Outpatient (CLI) | payer MEDICARE, OTHER, SELFPAY ==
[2020-04-19 10:26] LABS: RBC Urine None Seen (0-5/HPF)
[2020-04-19 10:55] LABS: Appearance Urine UA CLEAR; Bilirubin Urine UA NEGATIVE (NEGATIVE); Color Urine UA YELLOW; Glucose Urine UA TRACE g/dL (Negative); Ketones Urine UA NEGATIVE (NEGATIVE); Leukocyte Esterase Urine UA NEGATIVE (NEGATIVE); Nitrite Urine UA NEGATIVE (Negative); Occult Blood Urine UA NEGATIVE (Negative); Protein Urine UA NEGATIVE (Negative); Urobilinogen Urine UA 0.2 E.U./dL (0.2)
[2020-04-19 11:19] LABS: Bacteria Urine Occasional (0-1); Culture Indicated Urine Cult Not Indicated; WBC Urine 0-1/HPF (0-5/HPF)
[2020-04-19 11:20] LABS: Creatinine Urine Random 60.9 mg/dL; Protein (Total) Urine Random 35 mg/dL (0-12); Protein Creatinine Ratio Urine 0.57 GRAM/24H
== END ==
PROVIDERS: PCP Internal Medicine; Referring Provider Internal Medicine Nephrology
DX: N39.0 Urinary tract infection, site not specified (principal); Z94.0 Kidney transplant status; Z48.298 Encounter for aftercare following other organ transplant
CPT/HCPCS: 81001; 82570; 84156

== ENCOUNTER → 2020-07-05 11:49 | Outpatient (CLI) | payer MEDICARE, OTHER, SELFPAY ==
[2020-07-05 12:48] LABS: Add Manual Diff / Slide Review NO; Basophils Absolute Auto 0 /uL (0-100); Basophils Percent Auto 0.7 % (0-2); Eosinophils Absolute Auto 100 /uL (0-450); Eosinophils Percent Auto 1.7 % (2-4); Hematocrit 37.8 % (41-53); Hemoglobin 12.3 g/dL (13.5-17.5); Lymphocytes Absolute Auto 1500 /uL (1100-4500); Lymphocytes Percent Auto 22.3 % (25-40); Mean Corpuscular HGB Conc 32.7 % (30-36); Mean Corpuscular Volume 91.8 fL (80-100); Monocytes Absolute Auto 800 /uL (0-900); Monocytes Percent Auto 11.2 % (3-14); Neutrophils Absolute Auto 4300 /uL (1500-7000); Neutrophils Percent Auto 64.1 % (50-75); Platelet Count 254 X10^3/uL (150-400); Red Blood Cell Count 4.11 X10^6/uL (4.5-5.9); White Blood Cell Count 6.7 X10^3/uL (4.5-11.0)
[2020-07-05 13:03] LABS: Hemoglobin A1C% w Est Avg Glu 6.1 % (4.0-6.0)
[2020-07-05 13:06] LABS: Alanine Aminotransferase 9 IU/L (<50); Albumin 3.9 g/dL (3.5-5.0); Albumin Globulin Ratio 1.7 (1.0-2.8); Alkaline Phosphatase 116 U/L (38-126); Aspartate Aminotransferase 19 IU/L (17-59); BUN Creatinine Ratio 29.6 (6-22); Bilirubin Total 0.2 mg/dL (0.2-1.3); Blood Urea Nitrogen 50 mg/dL (9-20); Carbon Dioxide 27 mmol/L (22-32); Chloride 106 mmol/L (98-107); Cholesterol 130 mg/dL (140-199); Estimated Glomerular Filt Rate 40.2 mL/min (>60); Globulin 2.3 g/dL (1.7-4.1); Glucose 120 mg/dL (80-110); HDL Cholesterol 35 mg/dL (40-60); HEMOLYSIS < 15 (0-50); LDL Cholesterol Calculated 39 mg/dL (<100); Potassium 4.1 mmol/L (3.4-5.1); Sodium 141 mmol/L (137-145); Total Protein 6.2 g/dL (6.3-8.2); Triglycerides 281 mg/dL (35-150)
[2020-07-06 10:36] LABS: Tacrolimus 14.9 ng/mL (2.0-20.0)
[2020-07-08 14:22] LABS: BK Virus, DNA, QN, PCR Negative copies/mL (Negative)
== END ==
PROVIDERS: PCP Internal Medicine
DX: Z94.0 Kidney transplant status (principal); E11.65 Type 2 diabetes mellitus with hyperglycemia; N25.0 Renal osteodystrophy
CPT/HCPCS: 36415; 80053; 80061; 80197; 83036; 85025; 87799

== ENCOUNTER → 2020-07-19 09:40 | Outpatient (CLI) | payer MEDICARE, OTHER, SELFPAY ==
[2020-07-19 11:42] LABS: BUN Creatinine Ratio 29.1 (6-22); Blood Urea Nitrogen 50 mg/dL (9-20); Calcium 10.4 mg/dL (8.4-10.2); Carbon Dioxide 27 mmol/L (22-32); Chloride 110 mmol/L (98-107); Estimated Glomerular Filt Rate 39.4 mL/min (>60); Glucose 127 mg/dL (80-110); HEMOLYSIS 23 (0-50); Potassium 4.6 mmol/L (3.4-5.1); Sodium 144 mmol/L (137-145)
[2020-07-20 12:39] LABS: Tacrolimus 9.9 ng/mL (2.0-20.0)
== END ==
PROVIDERS: PCP Internal Medicine
DX: Z94.0 Kidney transplant status (principal); G47.33 Obstructive sleep apnea (adult) (pediatric); G47.00 Insomnia, unspecified; G47.10 Hypersomnia, unspecified; G25.81 Restless legs syndrome
CPT/HCPCS: 36415; 80048; 80197; 99214

== ENCOUNTER → 2020-08-15 09:31 | Outpatient (CLI) | payer MEDICARE, OTHER, SELFPAY ==
[2020-08-15 09:48] LABS: Bacteria Urine None Seen; RBC Urine None Seen (0-5/HPF)
[2020-08-15 10:12] LABS: Add Manual Diff / Slide Review NO; Basophils Absolute Auto 0 /uL (0-100); Basophils Percent Auto 0.3 % (0-2); Eosinophils Absolute Auto 200 /uL (0-450); Eosinophils Percent Auto 1.8 % (2-4); Hemoglobin 12.5 g/dL (13.5-17.5); Lymphocytes Absolute Auto 1400 /uL (1100-4500); Lymphocytes Percent Auto 13.8 % (25-40); Mean Corpuscular HGB Conc 32.9 % (30-36); Mean Corpuscular Hemoglobin 30.2 PG (26-34); Mean Corpuscular Volume 91.5 fL (80-100); Monocytes Absolute Auto 800 /uL (0-900); Neutrophils Absolute Auto 7800 /uL (1500-7000); Neutrophils Percent Auto 76.1 % (50-75); Platelet Count 247 X10^3/uL (150-400); Red Blood Cell Count 4.16 X10^6/uL (4.5-5.9); Red Cell Distribution Width 14.3 % (11.6-14.8); White Blood Cell Count 10.3 X10^3/uL (4.5-11.0)
[2020-08-15 10:17] LABS: Appearance Urine UA CLEAR; Bilirubin Urine UA NEGATIVE (NEGATIVE); Color Urine UA YELLOW; Glucose Urine UA TRACE g/dL (Negative); Ketones Urine UA NEGATIVE (NEGATIVE); Leukocyte Esterase Urine UA 2+ (NEGATIVE); Nitrite Urine UA NEGATIVE (Negative); Occult Blood Urine UA NEGATIVE (Negative); Protein Urine UA NEGATIVE (Negative); Urobilinogen Urine UA 0.2 E.U./dL (0.2); pH Urine UA 6.5 (4.5-8.0)
[2020-08-15 10:21] LABS: Hemoglobin A1C% w Est Avg Glu 5.9 % (4.0-6.0)
[2020-08-15 10:42] LABS: WBC Urine 5-10/HPF (0-5/HPF)
[2020-08-15 10:45] LABS: Alanine Aminotransferase 10 IU/L (<50); Albumin 3.6 g/dL (3.5-5.0); Albumin Globulin Ratio 1.5 (1.0-2.8); Alkaline Phosphatase 117 U/L (38-126); Aspartate Aminotransferase 15 IU/L (17-59); Blood Urea Nitrogen 42 mg/dL (9-20); Calcium 10.2 mg/dL (8.4-10.2); Carbon Dioxide 24 mmol/L (22-32); Chloride 111 mmol/L (98-107); Cholesterol 126 mg/dL (140-199); Estimated Glomerular Filt Rate 46.1 mL/min (>60); Globulin 2.4 g/dL (1.7-4.1); Glucose 147 mg/dL (80-110); HDL Cholesterol 36 mg/dL (40-60); HEMOLYSIS < 15 (0-50); LDL Cholesterol Calculated 52 mg/dL (<100); Potassium 4.6 mmol/L (3.4-5.1); Sodium 141 mmol/L (137-145); Triglycerides 190 mg/dL (35-150)
[2020-08-15 10:48] LABS: Bilirubin Total < 0.1 mg/dL (0.2-1.3)
[2020-08-16 09:04] LABS: Tacrolimus 9.3 ng/mL (2.0-20.0)
[2020-08-18 11:01] LABS: BK Virus, DNA, QN, PCR Negative copies/mL (Negative)
== END ==
PROVIDERS: PCP Internal Medicine; Visit Provider Nurse Practitioner
DX: N39.0 Urinary tract infection, site not specified (principal); N25.0 Renal osteodystrophy; Z94.0 Kidney transplant status; E11.65 Type 2 diabetes mellitus with hyperglycemia
CPT/HCPCS: 36415; 80053; 80061; 80197; 81001; 83036; 85025; 87086; 87799

== ENCOUNTER → 2020-09-13 07:15 | Outpatient (CLI) | payer MEDICARE, OTHER, SELFPAY ==
[2020-09-13 08:16] LABS: Add Manual Diff / Slide Review NO; Basophils Absolute Auto 0 /uL (0-100); Basophils Percent Auto 0.4 % (0-2); Eosinophils Absolute Auto 100 /uL (0-450); Eosinophils Percent Auto 0.9 % (2-4); Hematocrit 39.8 % (41-53); Lymphocytes Absolute Auto 1400 /uL (1100-4500); Lymphocytes Percent Auto 14.1 % (25-40); Mean Corpuscular HGB Conc 32.6 % (30-36); Mean Corpuscular Hemoglobin 30.1 PG (26-34); Mean Corpuscular Volume 92.2 fL (80-100); Monocytes Absolute Auto 800 /uL (0-900); Monocytes Percent Auto 7.8 % (3-14); Neutrophils Absolute Auto 7600 /uL (1500-7000); Neutrophils Percent Auto 76.8 % (50-75); Platelet Count 303 X10^3/uL (150-400); Red Blood Cell Count 4.32 X10^6/uL (4.5-5.9); Red Cell Distribution Width 14.3 % (11.6-14.8); White Blood Cell Count 9.9 X10^3/uL (4.5-11.0)
[2020-09-13 08:30] LABS: Alanine Aminotransferase 16 IU/L (<50); Albumin 3.7 g/dL (3.5-5.0); Albumin Globulin Ratio 1.4 (1.0-2.8); Alkaline Phosphatase 107 U/L (38-126); Aspartate Aminotransferase 16 IU/L (17-59); BUN Creatinine Ratio 27.2 (6-22); Bilirubin Total 0.2 mg/dL (0.2-1.3); Blood Urea Nitrogen 47 mg/dL (9-20); Calcium 10.5 mg/dL (8.4-10.2); Carbon Dioxide 26 mmol/L (22-32); Chloride 110 mmol/L (98-107); Cholesterol 131 mg/dL (140-199); Estimated Glomerular Filt Rate 39.1 mL/min (>60); Globulin 2.7 g/dL (1.7-4.1); Glucose 68 mg/dL (80-110); HDL Cholesterol 36 mg/dL (40-60); HEMOLYSIS < 15 (0-50); LDL Cholesterol Calculated 63 mg/dL (<100); Magnesium 1.9 mg/dL (1.6-2.3); Phosphorous 3.7 mg/dL (2.3-3.7); Potassium 4.4 mmol/L (3.4-5.1); Sodium 144 mmol/L (137-145); Total Protein 6.4 g/dL (6.3-8.2); Triglycerides 160 mg/dL (35-150)
[2020-09-14 09:02] LABS: Tacrolimus 7.1 ng/mL (2.0-20.0)
[2020-09-16 11:36] LABS: BK Virus, DNA, QN, PCR Negative copies/mL (Negative)
== END ==
PROVIDERS: PCP Internal Medicine; Referring Provider Internal Medicine Nephrology; Visit Provider Internal Medicine Nephrology
DX: Z94.0 Kidney transplant status (principal); E11.65 Type 2 diabetes mellitus with hyperglycemia; T86.90 Unspecified complication of unspecified transplanted organ and tissue; E83.40 Disorders of magnesium metabolism, unspecified; N25.0 Renal osteodystrophy; Z48.298 Encounter for aftercare following other organ transplant
CPT/HCPCS: 36415; 80053; 80061; 80197; 83036; 83735; 84100; 85025; 87799

== ENCOUNTER → 2020-10-18 07:14 | Outpatient (CLI) | payer MEDICARE, OTHER, SELFPAY ==
[2020-10-18 08:26] LABS: Appearance Urine UA CLEAR; Bilirubin Urine UA NEGATIVE (NEGATIVE); Color Urine UA YELLOW; Glucose Urine UA NEGATIVE (Negative); Ketones Urine UA NEGATIVE (NEGATIVE); Leukocyte Esterase Urine UA 1+ (NEGATIVE); Nitrite Urine UA NEGATIVE (Negative); Occult Blood Urine UA NEGATIVE (Negative); Protein Urine UA TRACE (Negative); Specific Gravity Urine UA 1.015 (1.000-1.035); Urobilinogen Urine UA 0.2 E.U./dL (0.2); pH Urine UA 6.5 (4.5-8.0)
[2020-10-18 08:32] LABS: Add Manual Diff / Slide Review NO; Basophils Absolute Auto 0 /uL (0-100); Basophils Percent Auto 0.4 % (0-2); Eosinophils Absolute Auto 100 /uL (0-450); Hematocrit 37.1 % (41-53); Hemoglobin 12.2 g/dL (13.5-17.5); Lymphocytes Absolute Auto 1700 /uL (1100-4500); Lymphocytes Percent Auto 20.2 % (25-40); Mean Corpuscular HGB Conc 32.8 % (30-36); Mean Corpuscular Hemoglobin 30.2 PG (26-34); Mean Corpuscular Volume 91.9 fL (80-100); Monocytes Absolute Auto 900 /uL (0-900); Monocytes Percent Auto 10.2 % (3-14); Neutrophils Absolute Auto 5900 /uL (1500-7000); Neutrophils Percent Auto 68.2 % (50-75); Platelet Count 229 X10^3/uL (150-400); Red Blood Cell Count 4.04 X10^6/uL (4.5-5.9); Red Cell Distribution Width 14.6 % (11.6-14.8); White Blood Cell Count 8.6 X10^3/uL (4.5-11.0)
[2020-10-18 08:48] LABS: Bacteria Urine Occasional (0-1); RBC Urine 0-1/HPF (0-5/HPF); Squamous Epithelial Cell Urine 1-5 /HPF (0-5/HPF); WBC Urine 10-30/HPF (0-5/HPF)
[2020-10-18 09:08] LABS: Alanine Aminotransferase 10 IU/L (<50); Albumin 3.4 g/dL (3.5-5.0); Albumin Globulin Ratio 1.4 (1.0-2.8); Alkaline Phosphatase 109 U/L (38-126); Aspartate Aminotransferase 14 IU/L (17-59); BUN Creatinine Ratio 25.2 (6-22); Bilirubin Total 0.2 mg/dL (0.2-1.3); Blood Urea Nitrogen 39 mg/dL (9-20); Carbon Dioxide 26 mmol/L (22-32); Chloride 109 mmol/L (98-107); Cholesterol 127 mg/dL (140-199); Estimated Glomerular Filt Rate 44.4 mL/min (>60); Globulin 2.5 g/dL (1.7-4.1); Glucose 115 mg/dL (80-110); HDL Cholesterol 44 mg/dL (40-60); HEMOLYSIS < 15 (0-50); LDL Cholesterol Calculated 37 mg/dL (<100); Potassium 4.2 mmol/L (3.4-5.1); Sodium 141 mmol/L (137-145); Total Protein 5.9 g/dL (6.3-8.2); Triglycerides 228 mg/dL (35-150)
[2020-10-18 17:43] LABS: Hemoglobin A1C% w Est Avg Glu 5.9 % (4.0-6.0)
[2020-10-19 09:49] LABS: Tacrolimus 9.9 ng/mL (2.0-20.0)
[2020-10-21 06:08] LABS: BK Virus, DNA, QN, PCR Negative copies/mL (Negative)
== END ==
PROVIDERS: PCP Internal Medicine
DX: E11.65 Type 2 diabetes mellitus with hyperglycemia (principal); N39.0 Urinary tract infection, site not specified; N25.0 Renal osteodystrophy; Z94.0 Kidney transplant status
CPT/HCPCS: 36415; 80053; 80061; 80197; 81001; 83036; 85025; 87086; 87799

== ENCOUNTER → 2020-12-20 08:45 | Outpatient (CLI) | payer MEDICARE, OTHER, SELFPAY ==
[2020-12-20 09:53] LABS: BUN Creatinine Ratio 15.8 (6-22); Blood Urea Nitrogen 27 mg/dL (9-20); Carbon Dioxide 29 mmol/L (22-32); Chloride 108 mmol/L (98-107); Estimated Glomerular Filt Rate 39.7 mL/min (>60); Glucose 109 mg/dL (80-110); HEMOLYSIS < 15 (0-50); Potassium 4.3 mmol/L (3.4-5.1); Sodium 144 mmol/L (137-145)
[2020-12-21 09:36] LABS: Tacrolimus 7.2 ng/mL (2.0-20.0)
== END ==
PROVIDERS: PCP Internal Medicine; Referring Provider Specialist; Visit Provider Specialist
DX: Z94.0 Kidney transplant status (principal)
CPT/HCPCS: 36415; 80048; 80197; 87799

== ENCOUNTER → 2021-01-18 08:39 | Outpatient (CLI) | payer MEDICARE, OTHER, SELFPAY ==
[2021-01-18 10:25] LABS: Add Manual Diff / Slide Review NO; Basophils Absolute Auto 0 /uL (0-100); Basophils Percent Auto 0.3 % (0-2); Eosinophils Absolute Auto 200 /uL (0-450); Eosinophils Percent Auto 1.8 % (2-4); Hematocrit 39.5 % (41-53); Hemoglobin 12.6 g/dL (13.5-17.5); Lymphocytes Absolute Auto 1800 /uL (1100-4500); Lymphocytes Percent Auto 17.6 % (25-40); Mean Corpuscular Hemoglobin 29.8 PG (26-34); Mean Corpuscular Volume 93.2 fL (80-100); Monocytes Absolute Auto 700 /uL (0-900); Monocytes Percent Auto 6.7 % (3-14); Neutrophils Absolute Auto 7700 /uL (1500-7000); Neutrophils Percent Auto 73.6 % (50-75); Platelet Count 247 X10^3/uL (150-400); Red Blood Cell Count 4.24 X10^6/uL (4.5-5.9); Red Cell Distribution Width 14.5 % (11.6-14.8); White Blood Cell Count 10.5 X10^3/uL (4.5-11.0)
[2021-01-18 10:44] LABS: Hemoglobin A1C% w Est Avg Glu 5.9 % (4.0-6.0)
[2021-01-18 10:53] LABS: Alanine Aminotransferase 13 IU/L (<50); Albumin 3.9 g/dL (3.5-5.0); Albumin Globulin Ratio 1.5 (1.0-2.8); Alkaline Phosphatase 93 U/L (38-126); Aspartate Aminotransferase 19 IU/L (17-59); BUN Creatinine Ratio 23.4 (6-22); Bilirubin Total 0.2 mg/dL (0.2-1.3); Blood Urea Nitrogen 43 mg/dL (9-20); Calcium 10.1 mg/dL (8.4-10.2); Carbon Dioxide 31 mmol/L (22-32); Chloride 110 mmol/L (98-107); Cholesterol 142 mg/dL (140-199); Estimated Glomerular Filt Rate 36.4 mL/min (>60); Globulin 2.6 g/dL (1.7-4.1); Glucose 95 mg/dL (80-110); HDL Cholesterol 44 mg/dL (40-60); HEMOLYSIS < 15 (0-50); LDL Cholesterol Calculated 62 mg/dL (<100); Potassium 4.5 mmol/L (3.4-5.1); Sodium 144 mmol/L (137-145); Total Protein 6.5 g/dL (6.3-8.2); Triglycerides 178 mg/dL (35-150)
[2021-01-18 12:25] LABS: Appearance Urine UA CLEAR; Bilirubin Urine UA NEGATIVE (NEGATIVE); Color Urine UA YELLOW; Glucose Urine UA NEGATIVE (Negative); Ketones Urine UA NEGATIVE (NEGATIVE); Leukocyte Esterase Urine UA 2+ (NEGATIVE); Nitrite Urine UA POSITIVE (Negative); Occult Blood Urine UA NEGATIVE (Negative); Protein Urine UA NEGATIVE (Negative); Specific Gravity Urine UA <=1.005 (1.000-1.035); Urobilinogen Urine UA 0.2 E.U./dL (0.2)
[2021-01-18 12:41] LABS: RBC Urine 5-10/HPF (0-5/HPF); WBC Urine 5-10/HPF (0-5/HPF)
[2021-01-18 12:42] LABS: Amorphous Sediment Urine 2+; Bacteria Urine Moderate (10-30); Culture Indicated Urine Specimen Cultured
[2021-01-19 09:38] LABS: Tacrolimus 5.5 ng/mL (2.0-20.0)
[2021-01-23 09:59] LABS: BK Virus, DNA, QN, PCR Negative copies/mL (Negative)
== END ==
PROVIDERS: PCP Internal Medicine
DX: R80.9 Proteinuria, unspecified (principal); Z94.0 Kidney transplant status; E11.65 Type 2 diabetes mellitus with hyperglycemia; N25.0 Renal osteodystrophy
CPT/HCPCS: 36415; 80053; 80061; 80197; 81001; 83036; 85025; 87077; 87086; 87799

== ENCOUNTER → 2021-06-01 09:46 | Outpatient (CLI) | payer MEDICARE, OTHER, SELFPAY ==
[2021-06-01 10:24] LABS: Add Manual Diff / Slide Review NO; Basophils Absolute Auto 0 /uL (0-100); Basophils Percent Auto 0.2 % (0-2); Eosinophils Absolute Auto 200 /uL (0-450); Eosinophils Percent Auto 2.2 % (2-4); Hematocrit 39.8 % (41-53); Hemoglobin 13.3 g/dL (13.5-17.5); Lymphocytes Absolute Auto 1900 /uL (1100-4500); Mean Corpuscular HGB Conc 33.3 % (30-36); Mean Corpuscular Hemoglobin 30.6 PG (26-34); Monocytes Absolute Auto 800 /uL (0-900); Monocytes Percent Auto 9.4 % (3-14); Neutrophils Absolute Auto 6100 /uL (1500-7000); Neutrophils Percent Auto 67.2 % (50-75); Platelet Count 225 X10^3/uL (150-400); Red Blood Cell Count 4.33 X10^6/uL (4.5-5.9); Red Cell Distribution Width 14.8 % (11.6-14.8)
[2021-06-01 10:57] LABS: Alanine Aminotransferase 12 IU/L (<50); Albumin 3.9 g/dL (3.5-5.0); Albumin Globulin Ratio 1.6 (1.0-2.8); Alkaline Phosphatase 92 U/L (38-126); Aspartate Aminotransferase 15 IU/L (17-59); BUN Creatinine Ratio 25.2 (6-22); Bilirubin Total 0.3 mg/dL (0.2-1.3); Blood Urea Nitrogen 41 mg/dL (9-20); Calcium 10.7 mg/dL (8.4-10.2); Carbon Dioxide 30 mmol/L (22-32); Chloride 112 mmol/L (98-107); Estimated Glomerular Filt Rate 41.8 mL/min (>60); Globulin 2.5 g/dL (1.7-4.1); Glucose 52 mg/dL (80-110); HEMOLYSIS < 15 (0-50); Magnesium 2.2 mg/dL (1.6-2.3); Phosphorous 3.2 mg/dL (2.3-3.7); Potassium 4.3 mmol/L (3.4-5.1); Sodium 146 mmol/L (137-145); Total Protein 6.4 g/dL (6.3-8.2)
[2021-06-01 11:10] LABS: Appearance Urine UA CLEAR; Bilirubin Urine UA NEGATIVE (NEGATIVE); Color Urine UA YELLOW; Glucose Urine UA 1+ g/dL (Negative); Ketones Urine UA NEGATIVE (NEGATIVE); Leukocyte Esterase Urine UA 1+ (NEGATIVE); Nitrite Urine UA NEGATIVE (Negative); Occult Blood Urine UA NEGATIVE (Negative); Protein Urine UA TRACE (Negative); Specific Gravity Urine UA 1.015 (1.000-1.035); Urobilinogen Urine UA 0.2 E.U./dL (0.2)
[2021-06-01 11:14] LABS: Bacteria Urine Moderate (10-30); Culture Indicated Urine Specimen Cultured; RBC Urine None Seen (0-5/HPF); Squamous Epithelial Cell Urine 0-1 /HPF (0-5/HPF); WBC Urine 5-10/HPF (0-5/HPF)
[2021-06-01 11:37] LABS: Creatinine Urine Random 56.6 mg/dL; Protein (Total) Urine Random 41 mg/dL (0-12); Protein Creatinine Ratio Urine 0.72 GRAM/24H
[2021-06-02 10:44] LABS: Tacrolimus 6.9 ng/mL (2.0-20.0)
== END ==
PROVIDERS: PCP Internal Medicine; Referring Provider Specialist; Visit Provider Specialist
DX: E11.65 Type 2 diabetes mellitus with hyperglycemia (principal); Z94.0 Kidney transplant status; C64.9 Malignant neoplasm of unspecified kidney, except renal pelvis; I10 Essential (primary) hypertension; N25.0 Renal osteodystrophy; N39.0 Urinary tract infection, site not specified; N18.4 Chronic kidney disease, stage 4 (severe); R80.9 Proteinuria, unspecified
CPT/HCPCS: 36415; 80053; 80197; 81001; 82570; 83735; 84100; 84156; 85025; 87077; 87086; 87799

== ENCOUNTER → 2021-07-20 09:36 | Outpatient (CLI) | payer MEDICARE, OTHER, SELFPAY ==
[2021-07-20 10:30] LABS: Add Manual Diff / Slide Review NO; Basophils Absolute Auto 0 /uL (0-100); Basophils Percent Auto 0.3 % (0-2); Eosinophils Absolute Auto 200 /uL (0-450); Eosinophils Percent Auto 2.1 % (2-4); Hematocrit 39.7 % (41-53); Hemoglobin 13.3 g/dL (13.5-17.5); Lymphocytes Absolute Auto 1900 /uL (1100-4500); Lymphocytes Percent Auto 19.8 % (25-40); Mean Corpuscular HGB Conc 33.4 % (30-36); Mean Corpuscular Hemoglobin 30.6 PG (26-34); Mean Corpuscular Volume 91.6 fL (80-100); Monocytes Absolute Auto 900 /uL (0-900); Monocytes Percent Auto 8.8 % (3-14); Neutrophils Absolute Auto 6700 /uL (1500-7000); Platelet Count 206 X10^3/uL (150-400); Red Blood Cell Count 4.34 X10^6/uL (4.5-5.9); White Blood Cell Count 9.7 X10^3/uL (4.5-11.0)
[2021-07-20 10:41] LABS: Appearance Urine UA CLEAR; Bilirubin Urine UA NEGATIVE (NEGATIVE); Color Urine UA YELLOW; Glucose Urine UA NEGATIVE (Negative); Ketones Urine UA NEGATIVE (NEGATIVE); Leukocyte Esterase Urine UA NEGATIVE (NEGATIVE); Nitrite Urine UA NEGATIVE (Negative); Occult Blood Urine UA NEGATIVE (Negative); Protein Urine UA 1+ (Negative); Urobilinogen Urine UA 0.2 E.U./dL (0.2)
[2021-07-20 10:51] LABS: Alanine Aminotransferase 15 IU/L (<50); Albumin 3.9 g/dL (3.5-5.0); Albumin Globulin Ratio 1.4 (1.0-2.8); Alkaline Phosphatase 99 U/L (38-126); Aspartate Aminotransferase 19 IU/L (17-59); BUN Creatinine Ratio 25.5 (6-22); Bilirubin Total 0.4 mg/dL (0.2-1.3); Blood Urea Nitrogen 36 mg/dL (9-20); Carbon Dioxide 26 mmol/L (22-32); Chloride 109 mmol/L (98-107); Estimated Glomerular Filt Rate 49.4 mL/min (>60); Globulin 2.7 g/dL (1.7-4.1); Glucose 131 mg/dL (80-110); HEMOLYSIS < 15 (0-50); Magnesium 2.1 mg/dL (1.6-2.3); Phosphorous 3.4 mg/dL (2.3-3.7); Potassium 4.3 mmol/L (3.4-5.1); Sodium 139 mmol/L (137-145); Total Protein 6.6 g/dL (6.3-8.2)
[2021-07-20 10:55] LABS: Protein (Total) Urine Random 60 mg/dL (0-12); Protein Creatinine Ratio Urine 0.78 GRAM/24H
[2021-07-20 10:56] LABS: Bacteria Urine None Seen; Culture Indicated Urine Cult Not Indicated; RBC Urine None Seen (0-5/HPF); Urine Comments Microscopic Normal; WBC Urine None Seen (0-5/HPF)
== END ==
PROVIDERS: PCP Internal Medicine
DX: Z94.0 Kidney transplant status (principal); E11.65 Type 2 diabetes mellitus with hyperglycemia; C64.9 Malignant neoplasm of unspecified kidney, except renal pelvis; I10 Essential (primary) hypertension; N25.0 Renal osteodystrophy; N39.0 Urinary tract infection, site not specified; N18.4 Chronic kidney disease, stage 4 (severe); R80.9 Proteinuria, unspecified
CPT/HCPCS: 36415; 80053; 80197; 81001; 82570; 83735; 84100; 84156; 85025; 87799

== ENCOUNTER → 2021-08-26 08:34 | Outpatient (CLI) | payer MEDICARE, OTHER, SELFPAY ==
[2021-08-26 09:12] LABS: Appearance Urine UA CLEAR; Bilirubin Urine UA NEGATIVE (NEGATIVE); Color Urine UA YELLOW; Glucose Urine UA NEGATIVE (Negative); Ketones Urine UA NEGATIVE (NEGATIVE); Leukocyte Esterase Urine UA NEGATIVE (NEGATIVE); Nitrite Urine UA NEGATIVE (Negative); Occult Blood Urine UA NEGATIVE (Negative); Protein Urine UA TRACE (Negative); Urobilinogen Urine UA 0.2 E.U./dL (0.2)
[2021-08-26 09:32] LABS: RBC Urine None Seen (0-5/HPF)
[2021-08-26 09:33] LABS: Amorphous Sediment Urine 1+; Bacteria Urine Occasional (0-1); Culture Indicated Urine Cult Not Indicated; Mucus Urine 1+ (Negative); WBC Urine 0-1/HPF (0-5/HPF)
[2021-08-26 09:36] LABS: Creatinine Urine Random 64.6 mg/dL; Protein (Total) Urine Random 44 mg/dL (0-12)
[2021-08-26 10:31] LABS: Add Manual Diff / Slide Review NO; Basophils Absolute Auto 0 /uL (0-100); Basophils Percent Auto 0.4 % (0-2); Eosinophils Absolute Auto 200 /uL (0-450); Eosinophils Percent Auto 1.6 % (2-4); Hematocrit 44.9 % (41-53); Hemoglobin 14.7 g/dL (13.5-17.5); Lymphocytes Absolute Auto 2500 /uL (1100-4500); Mean Corpuscular HGB Conc 32.7 % (30-36); Mean Corpuscular Volume 91.8 fL (80-100); Monocytes Absolute Auto 800 /uL (0-900); Monocytes Percent Auto 7.2 % (3-14); Neutrophils Absolute Auto 7800 /uL (1500-7000); Neutrophils Percent Auto 68.8 % (50-75); Platelet Count 284 X10^3/uL (150-400); Red Blood Cell Count 4.89 X10^6/uL (4.5-5.9); Red Cell Distribution Width 14.3 % (11.6-14.8); White Blood Cell Count 11.3 X10^3/uL (4.5-11.0)
[2021-08-26 10:40] LABS: Alanine Aminotransferase 16 IU/L (<50); Albumin 4.4 g/dL (3.5-5.0); Albumin Globulin Ratio 1.5 (1.0-2.8); Alkaline Phosphatase 107 U/L (38-126); Aspartate Aminotransferase 18 IU/L (17-59); BUN Creatinine Ratio 24.7 (6-22); Bilirubin Total 0.4 mg/dL (0.2-1.3); Blood Urea Nitrogen 45 mg/dL (9-20); Calcium 10.8 mg/dL (8.4-10.2); Carbon Dioxide 31 mmol/L (22-32); Chloride 108 mmol/L (98-107); Estimated Glomerular Filt Rate 39 mL/min (>60); Glucose 138 mg/dL (80-110); HEMOLYSIS < 15 (0-50); Magnesium 2.1 mg/dL (1.6-2.3); Phosphorous 2.1 mg/dL (2.3-3.7); Potassium 3.3 mmol/L (3.4-5.1); Sodium 146 mmol/L (137-145); Total Protein 7.4 g/dL (6.3-8.2)
[2021-08-29 09:27] LABS: Tacrolimus 6.3 ng/mL (2.0-20.0)
== END ==
PROVIDERS: PCP Internal Medicine; Referring Provider Specialist; Visit Provider Specialist
DX: E11.65 Type 2 diabetes mellitus with hyperglycemia (principal); C64.9 Malignant neoplasm of unspecified kidney, except renal pelvis; I10 Essential (primary) hypertension; N25.0 Renal osteodystrophy; N39.0 Urinary tract infection, site not specified; N18.4 Chronic kidney disease, stage 4 (severe); R80.9 Proteinuria, unspecified; Z94.0 Kidney transplant status
CPT/HCPCS: 36415; 80053; 80197; 81001; 82570; 83735; 84100; 84156; 85025; 87799

== ENCOUNTER → 2021-09-22 08:26 | Outpatient (CLI) | payer MEDICARE, OTHER, SELFPAY ==
[2021-09-22 09:04] LABS: Add Manual Diff / Slide Review NO; Basophils Absolute Auto 0 /uL (0-100); Basophils Percent Auto 0.3 % (0-2); Eosinophils Absolute Auto 200 /uL (0-450); Eosinophils Percent Auto 1.8 % (2-4); Hematocrit 41.4 % (41-53); Hemoglobin 13.7 g/dL (13.5-17.5); Lymphocytes Absolute Auto 2200 /uL (1100-4500); Lymphocytes Percent Auto 20.3 % (25-40); Mean Corpuscular HGB Conc 33.1 % (30-36); Mean Corpuscular Hemoglobin 30.5 PG (26-34); Monocytes Absolute Auto 1000 /uL (0-900); Monocytes Percent Auto 9.1 % (3-14); Neutrophils Absolute Auto 7600 /uL (1500-7000); Neutrophils Percent Auto 68.5 % (50-75); Platelet Count 230 X10^3/uL (150-400); Red Cell Distribution Width 14.9 % (11.6-14.8); White Blood Cell Count 11.1 X10^3/uL (4.5-11.0)
[2021-09-22 09:18] LABS: Alanine Aminotransferase 17 IU/L (<50); Albumin 3.9 g/dL (3.5-5.0); Albumin Globulin Ratio 1.6 (1.0-2.8); Alkaline Phosphatase 112 U/L (38-126); Aspartate Aminotransferase 19 IU/L (17-59); Bilirubin Total 0.4 mg/dL (0.2-1.3); Blood Urea Nitrogen 40 mg/dL (9-20); Calcium 10.1 mg/dL (8.4-10.2); Carbon Dioxide 29 mmol/L (22-32); Chloride 107 mmol/L (98-107); Estimated Glomerular Filt Rate 48 mL/min (>60); Globulin 2.5 g/dL (1.7-4.1); Glucose 108 mg/dL (80-110); HEMOLYSIS < 15 (0-50); Magnesium 2.2 mg/dL (1.6-2.3); Phosphorous 3.3 mg/dL (2.3-3.7); Potassium 3.7 mmol/L (3.4-5.1); Sodium 143 mmol/L (137-145); Total Protein 6.4 g/dL (6.3-8.2)
[2021-09-22 09:51] LABS: Appearance Urine UA CLEAR; Bilirubin Urine UA NEGATIVE (NEGATIVE); Color Urine UA YELLOW; Glucose Urine UA TRACE g/dL (Negative); Ketones Urine UA NEGATIVE (NEGATIVE); Leukocyte Esterase Urine UA NEGATIVE (NEGATIVE); Nitrite Urine UA NEGATIVE (Negative); Occult Blood Urine UA NEGATIVE (Negative); Protein Urine UA 1+ (Negative); Specific Gravity Urine UA 1.015 (1.000-1.035); Urobilinogen Urine UA 0.2 E.U./dL (0.2); pH Urine UA 5.5 (4.5-8.0)
[2021-09-22 10:00] LABS: Bacteria Urine None Seen; Culture Indicated Urine Cult Not Indicated; RBC Urine None Seen (0-5/HPF); Squamous Epithelial Cell Urine None Seen (0-5/HPF); WBC Urine 0-1/HPF (0-5/HPF)
[2021-09-22 10:15] LABS: Creatinine Urine Random 91.8 mg/dL; Protein (Total) Urine Random 58 mg/dL (0-12); Protein Creatinine Ratio Urine 0.63 GRAM/24H
[2021-09-23 11:26] LABS: Tacrolimus 3.6 ng/mL (2.0-20.0)
== END ==
PROVIDERS: PCP Internal Medicine
DX: Z94.0 Kidney transplant status (principal); E11.65 Type 2 diabetes mellitus with hyperglycemia; C64.9 Malignant neoplasm of unspecified kidney, except renal pelvis; I10 Essential (primary) hypertension; N25.0 Renal osteodystrophy; N39.0 Urinary tract infection, site not specified; N18.4 Chronic kidney disease, stage 4 (severe); R80.9 Proteinuria, unspecified
CPT/HCPCS: 36415; 80053; 80197; 81001; 82570; 83735; 84100; 84156; 85025; 87799

== ENCOUNTER → 2021-10-25 09:03 | Outpatient (CLI) | payer MEDICARE, OTHER, SELFPAY ==
[2021-10-25 09:49] LABS: Appearance Urine UA CLEAR; Bilirubin Urine UA NEGATIVE (NEGATIVE); Color Urine UA YELLOW; Glucose Urine UA NEGATIVE (Negative); Ketones Urine UA NEGATIVE (NEGATIVE); Leukocyte Esterase Urine UA 1+ (NEGATIVE); Nitrite Urine UA NEGATIVE (Negative); Occult Blood Urine UA NEGATIVE (Negative); Protein Urine UA TRACE (Negative); Urobilinogen Urine UA 0.2 E.U./dL (0.2); pH Urine UA 6.5 (4.5-8.0)
[2021-10-25 09:55] LABS: Add Manual Diff / Slide Review NO; Basophils Absolute Auto 0 /uL (0-100); Basophils Percent Auto 0.3 % (0-2); Eosinophils Absolute Auto 200 /uL (0-450); Eosinophils Percent Auto 1.9 % (2-4); Hematocrit 41.5 % (41-53); Hemoglobin 13.8 g/dL (13.5-17.5); Lymphocytes Absolute Auto 1700 /uL (1100-4500); Mean Corpuscular HGB Conc 33.3 % (30-36); Mean Corpuscular Hemoglobin 30.9 PG (26-34); Mean Corpuscular Volume 92.8 fL (80-100); Monocytes Absolute Auto 800 /uL (0-900); Neutrophils Absolute Auto 7300 /uL (1500-7000); Neutrophils Percent Auto 72.8 % (50-75); Platelet Count 247 X10^3/uL (150-400); Red Blood Cell Count 4.47 X10^6/uL (4.5-5.9)
[2021-10-25 09:56] LABS: Creatinine Urine Random 30.7 mg/dL; Protein (Total) Urine Random 41 mg/dL (0-12); Protein Creatinine Ratio Urine 1.33 GRAM/24H
[2021-10-25 10:05] LABS: Alanine Aminotransferase 10 IU/L (<50); Albumin 3.9 g/dL (3.5-5.0); Albumin Globulin Ratio 1.5 (1.0-2.8); Alkaline Phosphatase 101 U/L (38-126); Aspartate Aminotransferase 15 IU/L (17-59); Bilirubin Total 0.4 mg/dL (0.2-1.3); Blood Urea Nitrogen 39 mg/dL (9-20); Calcium 10.5 mg/dL (8.4-10.2); Carbon Dioxide 27 mmol/L (22-32); Chloride 109 mmol/L (98-107); Estimated Glomerular Filt Rate 47 mL/min (>60); Globulin 2.6 g/dL (1.7-4.1); HEMOLYSIS < 15 (0-50); Phosphorous 3.2 mg/dL (2.3-3.7); Potassium 3.6 mmol/L (3.4-5.1); Sodium 145 mmol/L (137-145); Total Protein 6.5 g/dL (6.3-8.2)
[2021-10-25 10:20] LABS: Bacteria Urine Few (2-10); Culture Indicated Urine Specimen Cultured; RBC Urine None Seen (0-5/HPF); Squamous Epithelial Cell Urine 0-1 /HPF (0-5/HPF); WBC Urine 1-5/HPF (0-5/HPF)
[2021-10-25 10:36] LABS: TSH w/ Reflex to FT4 3.03 uIU/mL (0.47-4.68)
[2021-10-25 10:43] LABS: Glucose 42 mg/dL (80-110)
[2021-10-25 13:00] LABS: Magnesium 1.9 mg/dL (1.6-2.3)
[2021-10-26 08:16] LABS: Tacrolimus 5.4 ng/mL (2.0-20.0)
== END ==
PROVIDERS: PCP Specialist
DX: I10 Essential (primary) hypertension (principal); E11.22 Type 2 diabetes mellitus with diabetic chronic kidney disease; E11.65 Type 2 diabetes mellitus with hyperglycemia; E11.42 Type 2 diabetes mellitus with diabetic polyneuropathy; N18.32 Chronic kidney disease, stage 3b; Z79.4 Long term (current) use of insulin; Z94.0 Kidney transplant status; C64.9 Malignant neoplasm of unspecified kidney, except renal pelvis; N25.0 Renal osteodystrophy; N39.0 Urinary tract infection, site not specified; N18.4 Chronic kidney disease, stage 4 (severe); R80.9 Proteinuria, unspecified
CPT/HCPCS: 36415; 80053; 80197; 81001; 82570; 83036; 83735; 84100; 84156; 84443; 85025; 87077; 87086; 87799

== ENCOUNTER → 2021-11-22 14:28 | Outpatient (CLI) | payer MEDICARE, OTHER, SELFPAY | PROVIDERS: PCP Specialist; Visit Provider Specialist | DX: N31.2 Flaccid neuropathic bladder, not elsewhere classified (principal); R30.0 Dysuria; R33.9 Retention of urine, unspecified; Z85.528 Personal history of other malignant neoplasm of kidney; Z94.0 Kidney transplant status | CPT/HCPCS: 51798; 81002; 87086; 99215 ==

== ENCOUNTER → 2021-12-02 07:51 | Outpatient (CLI) | payer MEDICARE, OTHER, SELFPAY ==
[2021-12-02 09:27] LABS: Add Manual Diff / Slide Review NO; Basophils Absolute Auto 100 /uL (0-100); Eosinophils Absolute Auto 200 /uL (0-450); Eosinophils Percent Auto 1.9 % (2-4); Hematocrit 40.5 % (41-53); Hemoglobin 13.2 g/dL (13.5-17.5); Lymphocytes Absolute Auto 1800 /uL (1100-4500); Lymphocytes Percent Auto 14.5 % (25-40); Mean Corpuscular HGB Conc 32.5 % (30-36); Mean Corpuscular Hemoglobin 30.1 PG (26-34); Mean Corpuscular Volume 92.8 fL (80-100); Monocytes Absolute Auto 900 /uL (0-900); Monocytes Percent Auto 7.4 % (3-14); Neutrophils Absolute Auto 9300 /uL (1500-7000); Neutrophils Percent Auto 75.2 % (50-75); Platelet Count 222 X10^3/uL (150-400); Red Blood Cell Count 4.36 X10^6/uL (4.5-5.9); Red Cell Distribution Width 13.9 % (11.6-14.8); White Blood Cell Count 12.4 X10^3/uL (4.5-11.0)
[2021-12-02 09:34] LABS: Appearance Urine UA CLEAR; Bilirubin Urine UA NEGATIVE (NEGATIVE); Color Urine UA YELLOW; Glucose Urine UA NEGATIVE (Negative); Ketones Urine UA NEGATIVE (NEGATIVE); Leukocyte Esterase Urine UA 1+ (NEGATIVE); Nitrite Urine UA NEGATIVE (Negative); Occult Blood Urine UA TRACE-LYSED (Negative); Protein Urine UA 1+ (Negative); Specific Gravity Urine UA 1.015 (1.000-1.035); Urobilinogen Urine UA 0.2 E.U./dL (0.2); pH Urine UA 5.5 (4.5-8.0)
[2021-12-02 09:51] LABS: Amorphous Sediment Urine 1+; Bacteria Urine Moderate (10-30); RBC Urine 0-1/HPF (0-5/HPF); WBC Urine 5-10/HPF (0-5/HPF)
[2021-12-02 09:56] LABS: Alanine Aminotransferase 12 IU/L (<50); Albumin 3.6 g/dL (3.5-5.0); Albumin Globulin Ratio 1.5 (1.0-2.8); Alkaline Phosphatase 90 U/L (38-126); Aspartate Aminotransferase 15 IU/L (17-59); Bilirubin Total 0.4 mg/dL (0.2-1.3); Blood Urea Nitrogen 33 mg/dL (9-20); Carbon Dioxide 26 mmol/L (22-32); Chloride 111 mmol/L (98-107); Estimated Glomerular Filt Rate 41 mL/min (>60); Globulin 2.4 g/dL (1.7-4.1); Glucose 127 mg/dL (80-110); HEMOLYSIS < 15 (0-50); Phosphorous 2.6 mg/dL (2.3-3.7); Potassium 3.9 mmol/L (3.4-5.1); Sodium 143 mmol/L (137-145)
[2021-12-02 10:20] LABS: Creatinine Urine Random 130.4 mg/dL; Protein (Total) Urine Random 69 mg/dL (0-12); Protein Creatinine Ratio Urine 0.52 GRAM/24H
[2021-12-03 13:04] LABS: Tacrolimus 5.8 ng/mL (2.0-20.0)
== END ==
PROVIDERS: PCP Internal Medicine; Referring Provider Specialist; Visit Provider Specialist
DX: Z94.0 Kidney transplant status (principal); E11.65 Type 2 diabetes mellitus with hyperglycemia; C64.9 Malignant neoplasm of unspecified kidney, except renal pelvis; I12.9 Hypertensive chronic kidney disease with stage 1 through stage 4 chronic kidney disease, or unspecified chronic kidney disease; N25.0 Renal osteodystrophy; N39.0 Urinary tract infection, site not specified; N18.4 Chronic kidney disease, stage 4 (severe); R80.9 Proteinuria, unspecified
CPT/HCPCS: 36415; 80053; 80197; 81001; 82570; 83735; 84100; 84156; 85025; 87799

== ENCOUNTER → 2021-12-04 10:35 | Outpatient (CLI) | payer MEDICARE, OTHER, SELFPAY | PROVIDERS: PCP Internal Medicine; Visit Provider Specialist | DX: N39.0 Urinary tract infection, site not specified (principal) | CPT/HCPCS: 87077; 87086 ==

== ENCOUNTER → 2021-12-16 11:36 | Outpatient (CLI) | payer MEDICARE, OTHER, SELFPAY ==
[2021-12-16 12:21] LABS: Add Manual Diff / Slide Review NO; Basophils Absolute Auto 0 /uL (0-100); Basophils Percent Auto 0.2 % (0-2); Eosinophils Absolute Auto 100 /uL (0-450); Eosinophils Percent Auto 1.7 % (2-4); Hematocrit 40.8 % (41-53); Hemoglobin 13.8 g/dL (13.5-17.5); Lymphocytes Absolute Auto 1700 /uL (1100-4500); Lymphocytes Percent Auto 19.5 % (25-40); Mean Corpuscular HGB Conc 33.7 % (30-36); Mean Corpuscular Hemoglobin 30.9 PG (26-34); Mean Corpuscular Volume 91.6 fL (80-100); Monocytes Absolute Auto 700 /uL (0-900); Monocytes Percent Auto 7.7 % (3-14); Neutrophils Absolute Auto 6000 /uL (1500-7000); Neutrophils Percent Auto 70.9 % (50-75); Platelet Count 233 X10^3/uL (150-400); Red Blood Cell Count 4.45 X10^6/uL (4.5-5.9); Red Cell Distribution Width 13.3 % (11.6-14.8); White Blood Cell Count 8.5 X10^3/uL (4.5-11.0)
[2021-12-16 12:25] LABS: Appearance Urine UA CLEAR; Bilirubin Urine UA NEGATIVE (NEGATIVE); Color Urine UA YELLOW; Glucose Urine UA 2+ g/dL (Negative); Ketones Urine UA NEGATIVE (NEGATIVE); Leukocyte Esterase Urine UA TRACE (NEGATIVE); Nitrite Urine UA NEGATIVE (Negative); Occult Blood Urine UA NEGATIVE (Negative); Protein Urine UA TRACE (Negative); Urobilinogen Urine UA 0.2 E.U./dL (0.2); pH Urine UA 6.5 (4.5-8.0)
[2021-12-16 12:32] LABS: Alanine Aminotransferase 16 IU/L (<50); Albumin Globulin Ratio 1.4 (1.0-2.8); Alkaline Phosphatase 95 U/L (38-126); Aspartate Aminotransferase 18 IU/L (17-59); BUN Creatinine Ratio 23.7 (6-22); Bilirubin Total 0.3 mg/dL (0.2-1.3); Blood Urea Nitrogen 42 mg/dL (9-20); Calcium 10.2 mg/dL (8.4-10.2); Carbon Dioxide 29 mmol/L (22-32); Chloride 109 mmol/L (98-107); Estimated Glomerular Filt Rate 40 mL/min (>60); Globulin 2.9 g/dL (1.7-4.1); Glucose 99 mg/dL (80-110); HEMOLYSIS < 15 (0-50); Phosphorous 2.9 mg/dL (2.3-3.7); Potassium 3.8 mmol/L (3.4-5.1); Sodium 145 mmol/L (137-145); Total Protein 6.9 g/dL (6.3-8.2)
[2021-12-16 12:41] LABS: RBC Urine None Seen (0-5/HPF); Squamous Epithelial Cell Urine 0-1 /HPF (0-5/HPF); WBC Urine 1-5/HPF (0-5/HPF)
[2021-12-16 12:42] LABS: Bacteria Urine Many (>30); Culture Indicated Urine Specimen Cultured
[2021-12-16 12:44] LABS: Creatinine Urine Random 34.1 mg/dL; Protein (Total) Urine Random 40 mg/dL (0-12); Protein Creatinine Ratio Urine 1.17 GRAM/24H
[2021-12-16 13:03] LABS: Prostate Specific Antigen 2.66 ng/mL (0.10-4.00)
== END ==
PROVIDERS: PCP Internal Medicine; Referring Provider Specialist; Visit Provider Specialist
DX: R97.20 Elevated prostate specific antigen [PSA] (principal); E11.65 Type 2 diabetes mellitus with hyperglycemia; Z94.0 Kidney transplant status; C64.9 Malignant neoplasm of unspecified kidney, except renal pelvis; I10 Essential (primary) hypertension; N25.0 Renal osteodystrophy; N39.0 Urinary tract infection, site not specified; N18.4 Chronic kidney disease, stage 4 (severe); R80.9 Proteinuria, unspecified
CPT/HCPCS: 36415; 80053; 81001; 82570; 83735; 84100; 84153; 84156; 85025; 87077; 87086; 87186; 87799

== ENCOUNTER → 2022-01-17 13:10 | Outpatient (CLI) | payer MEDICARE, OTHER, SELFPAY ==
--- NOTE | 2022-01-17 13:38 | DI.MRI.S_ITS ---
PROCEDURE: MR LUMBAR SPINE WO CON INDICATIONS: Spinal stenosis, lumbar region TECHNIQUE: Noncontrast sagittal T1 spin echo and T2 fast echo, sagittal STIR, and T2 fast spin echo through the lumbar spine. In cases with scoliosis, additional coronal T2 fast spin echo may be performed. COMPARISON: [facility], CT, ABDOMEN/PELVIS WITHOUT CONTRAS, 06/07/2017, 9:01. FINDINGS: Image quality: Excellent. Alignment and Curvature: There is grade 1 L5 on S1 anterolisthesis. Spinal alignment is otherwise normal. Bone Marrow: Marrow is of normal overall signal. T1 hypointense and STIR hyperintense lesion is noted at L1. No acute vertebral body compression fractures. Spinal Cord: Conus medullaris terminates at the T12 level. Visualized cord demonstrates normal signal and size. Paraspinous Soft Tissues: A questionable mass is present adjacent to the right psoas musculature which was not visualized on the comparison CT dated June 07, 2017. This may represent a renal allograft but is incompletely characterized without more recent comparison studies available. The bilateral qagan [place]ung[place] kidneys are not visualized. T12-L1: Mild disc desiccation. No canal stenosis. No neural foraminal stenosis. L1-L2: Mild disc desiccation and height loss. Broad-based disc bulge. No canal stenosis. Mild bilateral foraminal narrowing. L2-L3: Mild disc desiccation and height loss. Broad-based disc bulge. Moderate facet and ligamentum flavum hypertrophy. No canal stenosis. Moderate bilateral foraminal stenosis. L3-L4: Mild disc desiccation and height loss. Broad-based disc bulge. Moderate facet ligamentum flavum hypertrophy. No canal stenosis. Moderate bilateral foraminal stenosis. L4-L5: Mild disc desiccation and height loss. Severe facet and ligamentum flavum hypertrophy. No canal stenosis. Moderate bilateral foraminal stenosis. L5-S1: Anterolisthesis. Severe disc desiccation and height loss. Severe facet ligamentum flavum hypertrophy. No canal stenosis. Severe bilateral neural foraminal stenosis with mild flattening of the bilateral exiting nerve roots. IMPRESSION: 1. T1 hypointense/STIR hyperintense lesion within L1. This may represent an atypical intraosseous hemangioma; however neoplasm cannot be excluded and nonemergent contrast enhanced MRI of the lumbar spine is recommended. 2. Disc desiccation and height loss throughout the lumbar spine most severe at L5-S1. 3. No canal stenosis of the lumbar spine. 4. Severe bilateral neural foraminal stenosis at L5-S1 with flattening of the exiting nerve roots. Moderate bilateral foraminal stenosis is present at L2-3, L3-4, and L4-5. 5. Incompletely visualized right pelvic mass which may represent a renal allograft. If further characterization is warranted, CT of the pelvis could be used. Dictated by: Mishel Mccann M.D. on 01/17/2022 at 16:13 Approved by: Mishel Mccann M.D. on 01/17/2022 at 16:22
== END ==
PROVIDERS: PCP Internal Medicine; Referring Provider Physical Medicine & Rehabilitation Pain Medicine; Visit Provider Physical Medicine & Rehabilitation Pain Medicine
DX: M48.062 Spinal stenosis, lumbar region with neurogenic claudication (principal); M48.07 Spinal stenosis, lumbosacral region; M89.9 Disorder of bone, unspecified; R19.00 Intra-abdominal and pelvic swelling, mass and lump, unspecified site
CPT/HCPCS: 72148

== ENCOUNTER 2022-08-23 09:24 | Observation (INO) | payer MEDICARE, OTHER, SELFPAY ==
[2022-08-23] VITALS (7 sets, daily range): BP systolic 117–136; BP diastolic 63–78; PULSE 69–81; RESP 17–20; TEMP 36.6–36.7; O2SAT 95–100; BMI 34.0
--- NOTE | 2022-08-23 09:36 | DI.RAD.S_ITS ---
PROCEDURE: XR CHEST 1V INDICATIONS: sepsis TECHNIQUE: One view of the chest was acquired. COMPARISON: [facility], CR, XR CHEST 2V, 06/08/2019, 14:24. FINDINGS: Surgical changes and devices: None. Lungs and pleura: Slight appearance of increased retrocardiac opacity. Mediastinum: Mediastinal contours appear normal. Heart size is enlarged. Bones and chest wall: No suspicious bony lesions. Overlying soft tissues appear unremarkable. IMPRESSION: Mild retrocardiac opacity which may represent developing pneumonia versus atelectasis. Dictated by: Mariajose Babin M.D. on 08/23/2022 at 10:44 Approved by: Mariajose Babin M.D. on 08/23/2022 at 10:45
--- NOTE | 2022-08-23 09:39 | ED.SEPSIS ---
HPI - Sepsis General Chief Complaint: Urogenital-Male Mode of arrival: Ambulatory Source: patient Limitations: no limitations Evaluation Sepsis Screen: No Definite Risk Sepsis Infection Criteria Present: Suspected New Infection Narrative: 72-year-old male nonsmoker with history of kidney cancer status post transplant on tacrolimus, self catheterization, diabetes, flaccid bladder, congestive heart failure presents with a chief complaint of concern about a urinary tract infection. As stated he self caths and states that he is had some discomfort with urine and maybe some off colored and foul-smelling urine for the past few days as well as fever and shaking chills. He admits to nausea but no vomiting. He denies any abdominal pain, constipation or diarrhea. Denies any runny nose, sore throat or cough and has no chest pain, shortness of breath. He is got some mild back pain. Review of Systems Review of Systems Narrative: GENERAL: See HPI HEENT: Denies sinus pain, ear pain, sore throat, difficulty swallowing, dizziness. RESPIRATORY: Denies dyspnea, cough, wheezing, hemoptysis, sputum. CARDIOVASCULAR: Denies chest pain, palpitations, orthopnea, edema, GASTROINTESTINAL: See HPI : See HPI MUSCULOSKELETAL: denies weakness, joint pain, or bony pain SKIN: Denies rash, skin lesions, or other NEUROLOGIC: Denies weakness, headache, numbness, change in speech, confusion, seizures, incoordination. PSYCHIATRIC: No concerning psychosocial issues. 12 point review of systems is negative except for those stated above Patient History Medical History Arthritis Asthma Chronic iron deficiency anemia COVID-19 Elevated PSA End-stage renal disease (ESRD) Flaccid bladder Gout Gouty arthropathy History of renal cell cancer Hyperlipidemia associated with type 2 diabetes mellitus Hypersomnia Insomnia, persistent Obstructive sleep apnea of adult Restless legs syndrome (RLS) Type 2 diabetes mellitus (~2000) Urinary retention UTI (urinary tract infection) Surgical History Kidney transplant status, cadaveric Status post left hip replacement (~2018) Social History marital status: number of children: 1 household members: children education level: college occupational status: previously employed Previous occupational history: [employer] Smoking Status: Never smoker alcohol intake: never substance use type: does not use Smoking Status: Never smoker alcohol intake frequency: holidays/special occasions only Substance Use Type: does not use Exam Narrative Exam Narrative: GENERAL: [72] year old patient appears stated age. Well-developed patient, in mild distress. HEAD: Atraumatic. Normocephalic. EYES: Pupils equal round and reactive. Extraocular motions intact. No scleral icterus. No injection or drainage. ENT: Nose without bleeding, purulent drainage. Throat without erythema, tonsillar hypertrophy or exudate. Airway patent. NECK: Trachea midline. Non tender CARDIOVASCULAR: Regular rate and rhythm without murmurs, gallops, or rubs. RESPIRATORY: Clear to auscultation. Breath sounds equal bilaterally. No wheezes, rales, or rhonchi. GASTROINTESTINAL: Abdomen soft, non-tender, nondistended. EXTREMITIES: No edema or joint tenderness. BACK: Nontender without deformity or crepitance. No flank tenderness. NEURO: AOx3. SKIN: No rash or erythema of visible areas Initial Vital Signs Initial Vital Signs: Vital Signs Temperature 97.8 F 08/23/22 09:25 Pulse Rate 81 08/23/22 09:25 Respiratory Rate 17 08/23/22 09:25 Blood Pressure 117/63 08/23/22 09:25 Pulse Oximetry 98 08/23/22 09:25 Oxygen Delivery Method Room Air 08/23/22 09:25 Course Orders Ordered: ED Orders 08/23/22 14:26 renal complete Stat 08/24/22 05:00 BMP [Basic Metabolic Panel] DAILY CBC Auto Diff [Complete Blood Count AUTO DIFF] DAILY 08/25/22 05:00 BMP [Basic Metabolic Panel] DAILY CBC Auto Diff [Complete Blood Count AUTO DIFF] DAILY 08/26/22 05:00 BMP [Basic Metabolic Panel] DAILY CBC Auto Diff [Complete Blood Count AUTO DIFF] DAILY Acetaminophen (Acetaminophen 325 Mg Tablet) 650 mg PO Q6H PRN PRN Reason: Fever/Mild Pain (1-3) Allopurinol (Allopurinol 100 Mg Tablet) 100 mg PO DAILY [facility] Aspirin (Aspirin Ec 81 Mg Tablet) 81 mg PO DAILY [facility] Carvedilol (Carvedilol 12.5 Mg Tablet) 12.5 mg PO BID KIM Last Admin: 08/23/22 21:17 Dose: 12.5 mg Documented By: CT Dextrose (Dextrose 50 % In Water 25 Gm/50 Ml Syringe) 25 gm IV PRN PRN PRN Reason: Hypoglycemia Fenofibrate (Fenofibrate, Micronized 67 Mg Capsule) 67 mg PO DAILY [facility] Heparin Sodium (Porcine) (Heparin 5,000 Unit/Ml Vial) 5,000 unit SUBCUT BID [facility] Sodium Chloride (Normal Saline 0.9%) 1,000 mls @ 100 mls/hr IV CONT KIM Stop: 08/23/22 23:29 Last Admin: 08/23/22 13:38 Dose: 100 mls/hr Documented By: SALOMÓN Ceftriaxone Sodium 1,000 mg/ (Sodium Chloride) 100 mls @ 200 mls/hr IV Q24H KIM Stop: 08/29/22 08:59 Vancomycin HCl (Vancomycin) 1,250 mg in 250 mls @ 250 mls/hr IV Q36H [facility] Insulin Glargine (Insulin Glargine 100 Unit/Ml 3ml Pen) 20 unit SUBCUT 0800 [facility] Insulin Human Lispro (Insulin Lispro 100 Unit/Ml 3ml Vial) 0 unit SUBCUT ACHS [facility]; Protocol Last Admin: 08/23/22 18:00 Dose: Not Given Documented By: Admin: 08/23/22 12:37 Dose: Not Given Documented By: BLAZEK Loratadine (Loratadine 10 Mg Tablet) 10 mg PO DAILY [facility] Melatonin (Melatonin 3 Mg Tablet) 6 mg PO BEDTIME PRN PRN Reason: Insomnia Naloxone HCl (Naloxone 0.4 Mg/Ml Vial) 0.2 mg IV Q2MIN PRN PRN Reason: Opiate Reversal Nf - Valganciclovir (450 Mg Tablet) 900 mg PO DAILY [facility] Home Medication (Storage) 0 each PO PRN PRN PRN Reason: Home Medication Storage Polyethylene Glycol (Polyethylene Glycol 3350 17 Gm Powd.Pack) 17 gm PO DAILY PRN PRN Reason: Constipation Sennosides (Sennosides 8.6 Mg Tablet) 8.6 mg PO BID PRN PRN Reason: Constipation Tamsulosin HCl (Tamsulosin 0.4 Mg Capsule) 0.8 mg PO DAILY [facility] Vancomycin HCl (Vancomycin Trough) 1 request [facility] 0851 ONE Stop: 08/26/22 08:31 Discontinued Medications Lactated Ringer's (Lactated Ringers) 2,121 mls @ 707 mls/hr 30 ml/kg infuse over 3 hr (2121 ml) IV NOW ONE Stop: 08/23/22 12:35 Last Infusion: 08/23/22 13:39 Dose: 707 mls/hr Documented By: Admin: 08/23/22 10:06 Dose: 707 mls/hr Documented By: OW Ceftriaxone Sodium 2,000 mg/ (Sodium Chloride) 100 mls @ 200 mls/hr IV NOW ONE Stop: 08/23/22 09:37 Last Infusion: 08/23/22 10:56 Dose: 0 mls/hr Documented By: Admin: 08/23/22 10:05 Dose: 200 mls/hr Documented By: OW Vancomycin HCl/Dextrose (Vancomycin) 2,000 mg in 400 mls @ 200 mls/hr IV NOW ONE Stop: 08/23/22 13:17 Last Infusion: 08/23/22 13:45 Dose: 0 mls/hr Documented By: Admin: 08/23/22 11:37 Dose: 200 mls/hr Documented By: KONSTANTIN Insulin Glargine (Insulin Glargine 100 Unit/Ml 3ml Pen) 15 unit SUBCUT 0800 [facility] Last Admin: 08/23/22 12:36 Dose: Not Given Documented By: BLAZEK Insulin Human Lispro (Insulin Lispro 100 Unit/Ml 3ml Vial) 20 unit SUBCUT NOW ONE Stop: 08/23/22 17:59 Last Admin: 08/23/22 18:05 Dose: 20 unit Documented By: SALOMÓN Co-signed By: BLAKE Insulin Human Regular (Insulin Regular 100 Unit/Ml 3 Ml Vial) 10 unit SUBCUT NOW ONE Stop: 08/23/22 11:35 Last Admin: 08/23/22 11:45 Dose: 10 unit Documented By: KONSTANTIN Co-signed By: ANA PAULA Nf - Mycophenolate Sodium [Myfortic] 180 Mg Tablet, Delayed Release 720 mg PO BID [facility] Prednisone (Prednisone 5 Mg Tablet) 5 mg PO DAILY KIM Tacrolimus (Tacrolimus 0.5 Mg Capsule) 1 mg PO BID KIM Vancomycin HCl (Vancomycin Per Pharmacy) 1 request MISC NOW ONE Stop: 08/23/22 11:27 Last Admin: 08/23/22 13:52 Dose: Not Given Documented By: MM Vital Signs Vital signs: Vital Signs - 8 hr 08/23/22 09:25 08/23/22 10:06 08/23/22 10:30 Temperature 97.8 F Pulse Rate 81 77 77 Respiratory Rate 17 20 20 Blood Pressure 117/63 118/68 118/68 Pulse Oximetry 98 100 95 Oxygen Delivery Method Room Air Room Air Room Air 08/23/22 11:00 Temperature Pulse Rate 75 Respiratory Rate 20 Blood Pressure Pulse Oximetry 95 Oxygen Delivery Method Room Air Sepsis Evaluation (ED) Triage Screening Sepsis Screen: No Definite Risk Level 1 - Infection Sepsis Infection Criteria Present: Suspected New Infection Level 2 - SIRS Sepsis SIRS Criteria Present: None Response It is my opinion that his patient have a likely infectious etiology for meeting sepsis criteria: Does Not Fluid calculation based on 30 mL/kg within 1hr of criteria: IBW used due to BMI>30 Antibiotics initiated within 1 hr of Sepis dx: Yes Tissue Perfusion Reassessed within 6 hrs of infusion start time: No MDM - Sepsis Lab Data 08/23/22 09:50 08/23/22 09:50 Labs: Lab Results 08/23/22 08/23/22 08/23/22 Range/Units 09:40 09:50 09:50 WBC 11.7 H (4.5-11.0) X10^3/uL RBC 3.84 L (4.5-5.9) X10^6/uL Hgb 11.6 L (13.5-17.5) g/dL Hct 35.2 L (41-53) % MCV 91.8 (80-100) fL MCH 30.4 (26-34) PG MCHC 33.1 (30-36) % RDW 14.0 (11.6-14.8) % Plt Count 165 (150-400) X10^3/uL Neut % (Auto) 82.5 H (50-75) % Lymph % (Auto) 6.3 L (25-40) % [place] % (Auto) 10.8 (3-14) % Eos % (Auto) 0.2 L (2-4) % Baso % (Auto) 0.2 (0-2) % Neut # (Auto) 9700 H (7689-2391) /uL Lymph # (Auto) 700 L (4867-3477) /uL [place] # (Auto) 1300 H (0-900) /uL Eos # (Auto) 0 (0-450) /uL Baso # (Auto) 0 (0-100) /uL Sodium 132 L (137-145) mmol/L Potassium 3.8 (3.4-5.1) mmol/L Chloride 100 (98-107) mmol/L Carbon Dioxide 23 (22-32) mmol/L BUN 29 H (9-20) mg/dL Creatinine 2.55 H (0.66-1.25) mg/dL Estimated GFR 26 L (>60) mL/min BUN/Creatinine Ratio 11.4 (6-22) Glucose 377 H (80-110) mg/dL Lactate (0.7-2.1) mmol/L Calcium 9.2 (8.4-10.2) mg/dL Total Bilirubin 0.8 (0.2-1.3) mg/dL AST 19 (17-59) IU/L ALT 20 (<50) IU/L Alkaline Phosphatase 89 (38-126) U/L Total Creatine Kinase 66 (55-170) U/L CK-MB (CK-2) TNP CK-MB (CK-2) Rel Index TNP Troponin I 0.038 H (0.01-0.034) ng/mL NT-Pro-B Natriuret Pep 1090 H (<125) pg/mL Total Protein 6.1 L (6.3-8.2) g/dL Albumin 3.5 (3.5-5.0) g/dL Globulin 2.6 (1.7-4.1) g/dL Albumin/Globulin Ratio 1.3 (1.0-2.8) Procalcitonin 11.5 H (<0.5) ng/mL Urine Color Yellow Urine Appearance Clear Urine pH 6.0 (4.5-8.0) Ur Specific [place] 1.020 (1.000-1.035) Urine Protein 3+ H (Negative) Urine Glucose (UA) 3+ H (Negative) g/dL Urine Ketones Negative (NEGATIVE) Urine Occult Blood 2+ H (Negative) Urine Nitrate Positive H (Negative) Urine Bilirubin Negative (NEGATIVE) Urine Urobilinogen 1.0 (0.2) E.U./dL Ur Leukocyte Esterase 1+ H (NEGATIVE) Urine RBC 10-30/hpf H (0-5/HPF) Urine WBC 30-100/hpf H (0-5/HPF) Ur Squamous Epith Cells 1-5 /hpf (0-5/HPF) Urine Bacteria Moderate (10-30) H (None) Ur Culture Indicated? Specimen cultured 08/23/22 Range/Units 09:50 WBC (4.5-11.0) X10^3/uL RBC (4.5-5.9) X10^6/uL Hgb (13.5-17.5) g/dL Hct (41-53) % MCV (80-100) fL MCH (26-34) PG MCHC (30-36) % RDW (11.6-14.8) % Plt Count (150-400) X10^3/uL Neut % (Auto) (50-75) % Lymph % (Auto) (25-40) % [place] % (Auto) (3-14) % Eos % (Auto) (2-4) % Baso % (Auto) (0-2) % Neut # (Auto) (4151-8130) /uL Lymph # (Auto) (2353-4770) /uL [place] # (Auto) (0-900) /uL Eos # (Auto) (0-450) /uL Baso # (Auto) (0-100) /uL Sodium (137-145) mmol/L Potassium (3.4-5.1) mmol/L Chloride (98-107) mmol/L Carbon Dioxide (22-32) mmol/L BUN (9-20) mg/dL Creatinine (0.66-1.25) mg/dL Estimated GFR (>60) mL/min BUN/Creatinine Ratio (6-22) Glucose (80-110) mg/dL Lactate 1.2 (0.7-2.1) mmol/L Calcium (8.4-10.2) mg/dL Total Bilirubin (0.2-1.3) mg/dL AST (17-59) IU/L ALT (<50) IU/L Alkaline Phosphatase (38-126) U/L Total Creatine Kinase (55-170) U/L CK-MB (CK-2) CK-MB (CK-2) Rel Index Troponin I (0.01-0.034) ng/mL NT-Pro-B Natriuret Pep (<125) pg/mL Total Protein (6.3-8.2) g/dL Albumin (3.5-5.0) g/dL Globulin (1.7-4.1) g/dL Albumin/Globulin Ratio (1.0-2.8) Procalcitonin (<0.5) ng/mL Urine Color Urine Appearance Urine pH (4.5-8.0) Ur Specific [place] (1.000-1.035) Urine Protein (Negative) Urine Glucose (UA) (Negative) g/dL Urine Ketones (NEGATIVE) Urine Occult Blood (Negative) Urine Nitrate (Negative) Urine Bilirubin (NEGATIVE) Urine Urobilinogen (0.2) E.U./dL Ur Leukocyte Esterase (NEGATIVE) Urine RBC (0-5/HPF) Urine WBC (0-5/HPF) Ur Squamous Epith Cells (0-5/HPF) Urine Bacteria (None) Ur Culture Indicated? Urine Dip Bedside Urine Glucose 1000 mg/dl Bedside Urine Bilirubin - Negative Bedside Urine Ketone - Negative Urine Specific [place] 1.015 Bedside Urine Occult Blood +++ Bedside Urine pH 6 Bedside Urine Protein ++ 100 Bedside Urine Urobilinogen +/- 1mg Bedside Urine Nitrite - Negative Bedside Urine Leukocytes + 70 Esterase MDM Narrative Medical decision making narrative: CC: 72-year-old male with concern of UTI with nausea, subjective fever and chills Complicating co-morbidities: Age, diabetes, self catheterization, prior kidney transplant on anti-rejection medications Data collected from: Patient Medical records reviewed: Prior notes reviewed in our EMR Differential considered, but not limited to: UTI, pyelonephritis, sepsis, COVID, flu versus other Exam documented above, pertinent findings include: Relatively flat affect, no obvious distress, heart rate regular, no tachycardia or increased work of breathing, abdomen nontender, no CVA tenderness Lab Test results independently reviewed as above. Pertinent findings: Independently reviewed EKG as above Imaging studies independently reviewed: Chest x-ray shows a mild retrocardiac opacity, renal ultrasound obtained Consultations: Dr. Terrazas happy to accept on his service, does recommend the addition of vancomycin Treatments: Rocephin, vancomycin, fluids at 30 cc/kilogram of ideal body weight Patient with critically elevated procalcitonin, fever, chills and urine consistent with UTI. Patient is immunocompromised and diabetic requires hospitalization for further treatment and stabilization of his condition. Discharge Plan Departure Patient Disposition: Admitted As Inpatient Clinical Impression: UTI (urinary tract infection), Sepsis, Acute kidney injury, Acquired immunocompromised state Admit Date/Time: 08/23/22 11:26 Admit Provider: Scotty Terrazas
[2022-08-23 10:01] LABS: Add Manual Diff / Slide Review NO; Basophils Absolute Auto 0 /uL (0-100); Basophils Percent Auto 0.2 % (0-2); Eosinophils Absolute Auto 0 /uL (0-450); Eosinophils Percent Auto 0.2 % (2-4); Hematocrit 35.2 % (41-53); Hemoglobin 11.6 g/dL (13.5-17.5); Lymphocytes Absolute Auto 700 /uL (1100-4500); Lymphocytes Percent Auto 6.3 % (25-40); Mean Corpuscular HGB Conc 33.1 % (30-36); Mean Corpuscular Hemoglobin 30.4 PG (26-34); Mean Corpuscular Volume 91.8 fL (80-100); Monocytes Absolute Auto 1300 /uL (0-900); Monocytes Percent Auto 10.8 % (3-14); Neutrophils Absolute Auto 9700 /uL (1500-7000); Neutrophils Percent Auto 82.5 % (50-75); Platelet Count 165 X10^3/uL (150-400); Red Blood Cell Count 3.84 X10^6/uL (4.5-5.9); White Blood Cell Count 11.7 X10^3/uL (4.5-11.0)
[2022-08-23 10:04] LABS: Appearance Urine UA CLEAR; Bilirubin Urine UA NEGATIVE (NEGATIVE); Color Urine UA YELLOW; Glucose Urine UA 3+ g/dL (Negative); Ketones Urine UA NEGATIVE (NEGATIVE); Leukocyte Esterase Urine UA 1+ (NEGATIVE); Nitrite Urine UA POSITIVE (Negative); Occult Blood Urine UA 2+ (Negative); Protein Urine UA 3+ (Negative)
[2022-08-23] MEDS: cefTRIAXone 2,000 MG in SODIUM CHLORIDE 0.9% 100 ML 200 MG IV (10:05)
[2022-08-23] MEDS: LACTATED RINGERS 707 ML IV (10:06)
[2022-08-23 10:43] LABS: Alanine Aminotransferase 20 IU/L (<50); Albumin 3.5 g/dL (3.5-5.0); Albumin Globulin Ratio 1.3 (1.0-2.8); Alkaline Phosphatase 89 U/L (38-126); Aspartate Aminotransferase 19 IU/L (17-59); BUN Creatinine Ratio 11.4 (6-22); Bilirubin Total 0.8 mg/dL (0.2-1.3); Blood Urea Nitrogen 29 mg/dL (9-20); Calcium 9.2 mg/dL (8.4-10.2); Carbon Dioxide 23 mmol/L (22-32); Chloride 100 mmol/L (98-107); Creatine Kinase 66 U/L (55-170); Estimated Glomerular Filt Rate 26 mL/min (>60); Globulin 2.6 g/dL (1.7-4.1); Glucose 377 mg/dL (80-110); HEMOLYSIS < 15 (0-50); Potassium 3.8 mmol/L (3.4-5.1); Sodium 132 mmol/L (137-145); Total Protein 6.1 g/dL (6.3-8.2)
[2022-08-23 10:45] LABS: Lactate (Lactic Acid) 1.2 mmol/L (0.7-2.1)
[2022-08-23 10:55] LABS: NT-proBNP (BNP-Adult 18+) 1090 pg/mL (<125); Troponin I 0.038 ng/mL (0.01-0.034)
[2022-08-23 10:59] LABS: Procalcitonin 11.5 ng/mL (<0.5)
[2022-08-23 11:02] LABS: Bacteria Urine Moderate (10-30); Culture Indicated Urine Specimen Cultured; RBC Urine 10-30/HPF (0-5/HPF); Squamous Epithelial Cell Urine 1-5 /HPF (0-5/HPF); WBC Urine 30-100/HPF (0-5/HPF)
--- NOTE | 2022-08-23 11:35 | PM.HP.1 ---
History of Present Illness History of Present Illness Date Patient Seen: 08/23/22 Time Patient Seen: 12:21 Chief complaint: UTI sent by DR Horta: Bernardo Barakat is a 72-year-old male with past medical history of renal cell carcinoma s/p left nephrectomy, urinary retention with self catheterization, recurrent UTI's, type 2 diabetes, hyperlipidemia and gout who presents with subjective fever/chills and foul-smelling urine. Patient straight caths himself up to 10x per day. He says the past couple days he noticed worsening color and smell of his urine. Then today he developed subjective fever/chills so came to the ED. In the ED his UA showed pyuria consistent with UTI. He was afebrile. He denies flank pain. No CP, SOB, abd pain, dairrhea or NV. PFSH Medical History Arthritis Asthma Chronic iron deficiency anemia COVID-19 Elevated PSA End-stage renal disease (ESRD) Flaccid bladder Gout Gouty arthropathy History of renal cell cancer Hyperlipidemia associated with type 2 diabetes mellitus Hypersomnia Insomnia, persistent Obstructive sleep apnea of adult Restless legs syndrome (RLS) Type 2 diabetes mellitus (~2000) Urinary retention UTI (urinary tract infection) Surgical History Kidney transplant status, cadaveric Status post left hip replacement (~2018) Social History marital status: number of children: 1 household members: children education level: college occupational status: previously employed Previous occupational history: [employer] Smoking Status: Never smoker alcohol intake: never substance use type: does not use Meds Home Medications and Allergies Home Medications Medication Instructions Recorded Confirmed Type insulin glargine U-300 conc 300 0 u SC QDAY #1.5 mL 02/09/16 08/23/22 History unit/mL (1.5 mL) subcutaneous pen (Toujeo SoloStar U-300 Insulin) insulin aspart U-100 100 unit/mL 10 unit (0.1 mL) SUBCUT TID 05/27/19 08/23/22 Rx (3 mL) subcutaneous pen (Novolog Sliding scale #15 mL FlexPen U-100 Insulin aspart) allopurinol 100 mg tablet 100 mg PO DAILY 01/25/20 08/23/22 History fenofibrate 40 mg tablet 40 mg PO DAILY 01/25/20 08/23/22 History mycophenolate sodium 180 mg 720 mg PO BID 01/25/20 08/23/22 History tablet,delayed release (Myfortic) prednisone 5 mg tablet 5 mg PO DAILY 01/25/20 08/23/22 History tacrolimus 0.5 mg capsule, 1 mg PO Q12H 01/25/20 08/23/22 History immediate-release tamsulosin 0.4 mg capsule 0.8 mg PO DAILY 01/28/20 08/23/22 History carvedilol 12.5 mg tablet 12.5 mg PO BID 07/20/20 08/23/22 History dulaglutide 1.5 mg/0.5 mL 1.5 mg SUBCUT QWEEK 07/20/20 08/23/22 History subcutaneous pen injector (Trulicity) AirCurve 10 VAuto #1 ea 01/10/21 08/23/22 History furosemide 40 mg tablet 120 mg PO BID 08/23/22 08/23/22 History Allergies Allergy/AdvReac Type Severity Reaction Status Date / Time No Known Drug Allergies Allergy Verified 08/23/22 09:30 Review of Systems Review of Systems Narrative: All other systems reviewed with the patient and are negative unless otherwise stated. Exam Vital Signs (past 8 hours): - 08/23/22 09:25 08/23/22 10:06 08/23/22 10:30 Temperature 97.8 F Pulse Rate 81 77 77 Respiratory Rate 17 20 20 Blood Pressure 117/63 118/68 118/68 Pulse Oximetry 98 100 95 Oxygen Delivery Method Room Air Room Air Room Air Oxygen Delivery Method Room Air Narrative Exam Narrative: GEN: no acute distress, obese HEENT: moist mucous membranes, PERRL NECK: trachea midline, no JVD CV: regular rate and rhythm, no murmurs PULM: clear bilaterally ABD: soft, nontender, nondistended, no organomegaly EXT: warm and well perfused with no edema NEURO: awake, alert, oriented, no focal deficits Objective Labs 08/23/22 09:50 08/23/22 09:50 Labs: Laboratory Results - last 24 hr 08/23/22 08/23/22 08/23/22 09:40 09:50 09:50 WBC 11.7 H RBC 3.84 L Hgb 11.6 L Hct 35.2 L MCV 91.8 MCH 30.4 MCHC 33.1 RDW 14.0 Plt Count 165 Neut % (Auto) 82.5 H Lymph % (Auto) 6.3 L [place] % (Auto) 10.8 Eos % (Auto) 0.2 L Baso % (Auto) 0.2 Neut # (Auto) 9700 H Lymph # (Auto) 700 L [place] # (Auto) 1300 H Eos # (Auto) 0 Baso # (Auto) 0 Sodium 132 L Potassium 3.8 Chloride 100 Carbon Dioxide 23 BUN 29 H Creatinine 2.55 H Estimated GFR 26 L BUN/Creatinine Ratio 11.4 Glucose 377 H Lactate Calcium 9.2 Total Bilirubin 0.8 AST 19 ALT 20 Alkaline Phosphatase 89 Total Creatine Kinase 66 CK-MB (CK-2) TNP CK-MB (CK-2) Rel Index TNP Troponin I 0.038 H NT-Pro-B Natriuret Pep 1090 H Total Protein 6.1 L Albumin 3.5 Globulin 2.6 Albumin/Globulin Ratio 1.3 Procalcitonin 11.5 H Urine Color Yellow Urine Appearance Clear Urine pH 6.0 Ur Specific [place] 1.020 Urine Protein 3+ H Urine Glucose (UA) 3+ H Urine Ketones Negative Urine Occult Blood 2+ H Urine Nitrate Positive H Urine Bilirubin Negative Urine Urobilinogen 1.0 Ur Leukocyte Esterase 1+ H Urine RBC 10-30/hpf H Urine WBC 30-100/hpf H Ur Squamous Epith Cells 1-5 /hpf Urine Bacteria Moderate (10-30) H Ur Culture Indicated? Specimen cultured 08/23/22 09:50 WBC RBC Hgb Hct MCV MCH MCHC RDW Plt Count Neut % (Auto) Lymph % (Auto) [place] % (Auto) Eos % (Auto) Baso % (Auto) Neut # (Auto) Lymph # (Auto) [place] # (Auto) Eos # (Auto) Baso # (Auto) Sodium Potassium Chloride Carbon Dioxide BUN Creatinine Estimated GFR BUN/Creatinine Ratio Glucose Lactate 1.2 Calcium Total Bilirubin AST ALT Alkaline Phosphatase Total Creatine Kinase CK-MB (CK-2) CK-MB (CK-2) Rel Index Troponin I NT-Pro-B Natriuret Pep Total Protein Albumin Globulin Albumin/Globulin Ratio Procalcitonin Urine Color Urine Appearance Urine pH Ur Specific [place] Urine Protein Urine Glucose (UA) Urine Ketones Urine Occult Blood Urine Nitrate Urine Bilirubin Urine Urobilinogen Ur Leukocyte Esterase Urine RBC Urine WBC Ur Squamous Epith Cells Urine Bacteria Ur Culture Indicated? Assessment & Plan Assessment & Plan narrative: # acute complicated UTI -UA with significant pyuria, patient has history of muliple UTI's -previous cultures growing enteroccus -continue Rocephin and vanc -f/u urine culture, blood culture -doubt pyelo given afebrile and no leukocytosis, however f/u renal US # [place] on CKD stage 3 -Cr 2.55, baseline 1.7 -IVF -monitor and avoid nephrotoxic agents # renal cell carcinoma s/p left nephrectomy -hold home tacrolimus, prednisone and mycophenolate for now while UTI being treated # flaccid bladder -patient wants to self cath while admitted, provided with catheter -continue home Flomax # type 2 diabetes -continue basal insulin and sliding scale # hyperlipidemia -continue home fibrate Code status is full code. COVID negative. DVT prophylaxis with heparin subcutaneous. Proxy is daughter Brynn. I have reviewed home meds and used all available resources to reconcile the home meds. This patient will be admitted as observation and will require less than 2 midnights of hospital time to treat complicated UTI.
[2022-08-23] MEDS: VANCOMYCIN 2,000 MG/400 ML PIGGYBACK 200 MG IV (11:37)
[2022-08-23] MEDS: INSULIN REGULAR 100 UNIT/ML 3 ML VIAL 10 UNIT SUBCUT (11:45)
--- NOTE | 2022-08-23 11:56 | PC.NURSE ---
1100 Pt reports that his implanted glucose monitor indicates a glucose of 310. Pt states that he would take 30units of novolog for this level. notified. 1200 Pt given dain mist
[2022-08-23 12:15] LABS: COVID19 -Nasal RAPID Negative (Negative)
[2022-08-23] MEDS: SODIUM CHLORIDE 0.9% 1,000 ML 100 ML IV (13:38)
--- NOTE | 2022-08-23 14:26 | DI.US.S_ITS ---
PROCEDURE: US RENAL COMPLETE INDICATIONS: SEPSIS; HX RENAL CA X 2, TRANSPLANT TECHNIQUE: Real-time scanning was performed of the kidneys and bladder, with image documentation. COMPARISON: None. FINDINGS: Kidneys: The renal allograft measures 14.5 cm in length. The cortex measures 2.2 cm in thickness. A 4.3 x 3.2 x 4.9 superior pole anechoic cyst is present within the kidney. No hydronephrosis or nephrolithiasis. Bladder: The bladder is not dilated. The ureteral jets were not interrogated. Miscellaneous: No free pelvic fluid. IMPRESSION: No hydronephrosis or nephrolithiasis of the renal allograft. Dictated by: Mishel Mccann M.D. on 08/23/2022 at 15:16 Approved by: Mishel Mccann M.D. on 08/23/2022 at 15:17
--- NOTE | 2022-08-23 15:25 | PC.NURSE ---
Pt arrived to unit @ 1145, A&Ox4, RA with VS stable and ambulating independently in room. Pt requested that we give him self catherization equipment, the prelubed kits such as the [employer] brand. I told him that we may not have that, but that I couold supply him with a cath and lube on the side, and offered my assistance. Pt declined. I called materials to request, but materials could not find anything prelubed. Pt suggested that I call the urology dept to request for his prelubed caths, and the ladies in urology stated they could only give us 5 to last him the day. We agreed on it, and that I would belt picker supplies in their office downstairs. I notified pt that he needed to ask someone from home to come bring his own supplies to the hospital and he agreed. I picked up supplies from urology, while charge and other nurses were watching my other pts. I brought caths to pt, but they were still the regular self cath equipment with lube on the side, they were just packaged together, similar to my previous suggestion. Pt declined to use and for my assistance to help him. Pt is on the phone, speaking to a family member that can bring some by later today. Continue with care.
[2022-08-23] MEDS: INSULIN LISPRO 100 UNIT/ML 3ML VIAL 20 UNIT SUBCUT (18:05)
[2022-08-23] MEDS: carvediloL 12.5 MG TABLET PO (21:17)
[2022-08-24 05:27] LABS: Add Manual Diff / Slide Review NO; Basophils Absolute Auto 0 /uL (0-100); Basophils Percent Auto 0.2 % (0-2); Eosinophils Absolute Auto 100 /uL (0-450); Eosinophils Percent Auto 0.8 % (2-4); Hematocrit 33.5 % (41-53); Hemoglobin 11.4 g/dL (13.5-17.5); Lymphocytes Absolute Auto 1200 /uL (1100-4500); Lymphocytes Percent Auto 13.6 % (25-40); Mean Corpuscular HGB Conc 34.2 % (30-36); Mean Corpuscular Hemoglobin 31.2 PG (26-34); Mean Corpuscular Volume 91.2 fL (80-100); Monocytes Absolute Auto 1100 /uL (0-900); Monocytes Percent Auto 13.1 % (3-14); Neutrophils Absolute Auto 6300 /uL (1500-7000); Neutrophils Percent Auto 72.3 % (50-75); Platelet Count 153 X10^3/uL (150-400); Red Blood Cell Count 3.67 X10^6/uL (4.5-5.9); Red Cell Distribution Width 13.8 % (11.6-14.8); White Blood Cell Count 8.8 X10^3/uL (4.5-11.0)
[2022-08-24 05:41] LABS: BUN Creatinine Ratio 12.4 (6-22); Blood Urea Nitrogen 29 mg/dL (9-20); Calcium 9.9 mg/dL (8.4-10.2); Carbon Dioxide 24 mmol/L (22-32); Chloride 107 mmol/L (98-107); Estimated Glomerular Filt Rate 29 mL/min (>60); Glucose 153 mg/dL (80-110); HEMOLYSIS < 15 (0-50); Potassium 3.5 mmol/L (3.4-5.1); Sodium 137 mmol/L (137-145)
[2022-08-24] MEDS: INSULIN LISPRO 100 UNIT/ML 3ML VIAL SUBCUT ×4 (08:15→21:16)
[2022-08-24] MEDS: INSULIN GLARGINE 100 UNIT/ML 3ML PEN 20 UNIT SUBCUT (08:17)
[2022-08-24] MEDS: carvediloL 12.5 MG TABLET PO ×2 (08:20→21:13)
[2022-08-24] MEDS: cefTRIAXone 1,000 MG in SODIUM CHLORIDE 0.9% 100 ML 200 MG IV (08:22)
[2022-08-24] MEDS: FENOFIBRATE, MICRONIZED 67 MG CAPSULE PO (08:26)
[2022-08-24] MEDS: MYCOPHENOLATE MOFETIL 500 MG TABLET 750 MG PO ×2 (08:28→21:10)
[2022-08-24] MEDS: predniSONE 5 MG TABLET PO (08:31)
[2022-08-24] MEDS: TACROLIMUS 0.5 MG CAPSULE PO ×2 (08:32→21:10)
[2022-08-24] MEDS: TAMSULOSIN 0.4 MG CAPSULE 0.8 MG PO (08:33)
[2022-08-24] MEDS: allopurinoL 100 MG TABLET PO (08:38)
[2022-08-24 08:45] VITALS: BP 172/94; PULSE 80; RESP 16; O2SAT 96
[2022-08-24] MEDS: LORATADINE 10 MG TABLET PO (08:46)
[2022-08-24 09:00] VITALS: TEMP 36.4
[2022-08-24] MEDS: POTASSIUM CHLORIDE 20 MEQ TAB PO (11:23)
--- NOTE | 2022-08-24 12:49 | CM.DANOTE ---
Patient is a 72 yo male who was admitted on 08/23/22 for UTI. Pt has MCR and [place] for insurance and his PCP is not listed. EMR was reviewed. Per MD, pt with hx of renal cell carcinoma and nephrectomy and self caths at home and admitted for complex UTI. Per MD, awaiting urine cultures and then pt can d/c home on orals. Per RN, pt is independent in room and ambulated independently, no concerns noted. No bedside assessment completed at this time due to triage needs and no identified barriers to discharge. Plan: SW to follow for plan of d/c home on oral abx and outpt f/u and no SW needs at this time, please refer if indicated. CANELO Canseco
[2022-08-24 15:47] VITALS: BP 158/70; PULSE 66; RESP 18; TEMP 36.7; O2SAT 96
[2022-08-24] MEDS: ACETAMINOPHEN 325 MG TABLET 650 MG PO (17:50)
[2022-08-24] MEDS: PHENAZOPYRIDINE 100 MG TABLET PO ×2 (17:50→21:13)
--- NOTE | 2022-08-24 18:52 | PM.PN.1 ---
Subjective Subjective Interval history: Paient feeling well. Urine growing GNB but hasn't finalized yet. Having some urethral pain with self-cathing so asking for pain meds. No fever/chills. Exam Vital Signs (past 8 hours): - 08/24/22 15:47 Temperature 98.0 F Pulse Rate 66 Respiratory Rate 18 Blood Pressure 158/70 H Pulse Oximetry 96 Oxygen Flow Rate 0 Oxygen Delivery Method Room Air Oxygen Flow Rate 0 Narrative Exam Narrative: GEN: no acute distress, obese HEENT: moist mucous membranes, PERRL NECK: trachea midline, no JVD CV: regular rate and rhythm, no murmurs PULM: clear bilaterally ABD: soft, nontender, nondistended, no organomegaly EXT: warm and well perfused with no edema NEURO: awake, alert, oriented, no focal deficits Objective Labs 08/24/22 05:10 08/24/22 05:10 Labs: Laboratory Results - last 24 hr 08/24/22 08/24/22 05:10 05:10 WBC 8.8 RBC 3.67 L Hgb 11.4 L Hct 33.5 L MCV 91.2 MCH 31.2 MCHC 34.2 RDW 13.8 Plt Count 153 Neut % (Auto) 72.3 Lymph % (Auto) 13.6 L [place] % (Auto) 13.1 Eos % (Auto) 0.8 L Baso % (Auto) 0.2 Neut # (Auto) 6300 Lymph # (Auto) 1200 [place] # (Auto) 1100 H Eos # (Auto) 100 Baso # (Auto) 0 Sodium 137 Potassium 3.5 Chloride 107 Carbon Dioxide 24 BUN 29 H Creatinine 2.34 H Estimated GFR 29 L BUN/Creatinine Ratio 12.4 Glucose 153 H D Calcium 9.9 PFSH Medical History Arthritis Asthma Chronic iron deficiency anemia COVID-19 Elevated PSA End-stage renal disease (ESRD) Flaccid bladder Gout Gouty arthropathy History of renal cell cancer Hyperlipidemia associated with type 2 diabetes mellitus Hypersomnia Insomnia, persistent Obstructive sleep apnea of adult Restless legs syndrome (RLS) Type 2 diabetes mellitus (~2000) Urinary retention UTI (urinary tract infection) Surgical History Kidney transplant status, cadaveric Status post left hip replacement (~2018) Social History marital status: number of children: 1 household members: children education level: college occupational status: previously employed 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 Smoking Status: Never smoker alcohol intake: never substance use type: does not use Assessment & Plan Assessment & Plan narrative: # acute complicated UTI -UA with significant pyuria, patient has history of muliple UTI's -previous cultures growing enteroccus -continue Rocephin and vanc -blood culture neg at 24 hours -urine culture with GNB -doubt pyelo given afebrile and no leukocytosis, renal US shows no stones and normal single kidney # [place] on CKD stage 3, improving -Cr 2.55, baseline 1.7 -IVF -monitor and avoid nephrotoxic agents -Cr now downtrending # renal cell carcinoma s/p left nephrectomy -continue home tacrolimus, prednisone and mycophenolate # flaccid bladder -patient wants to self cath while admitted, provided with catheter -continue home Flomax -oxy PRN for urethral pain # type 2 diabetes -continue basal insulin and sliding scale # hyperlipidemia -continue home fibrate Code status is full code. COVID negative. DVT prophylaxis with heparin subcutaneous. Proxy is daughter Brynn. I have reviewed home meds and used all available resources to reconcile the home meds. This patient will be admitted as observation and will require less than 2 midnights of hospital time to treat complicated UTI. Quality VTE Deep Vein Thrombosis/Pulmonary Embolism Present on Admission: No
[2022-08-24] MEDS: OXYCODONE IR 5 MG TABLET PO (19:37)
[2022-08-24 20:00] VITALS: BP 161/75; PULSE 68; RESP 16; TEMP 36.5; O2SAT 97
[2022-08-24] MEDS: HEPARIN 5,000 UNIT/ML VIAL 5000 UNIT SUBCUT (21:09)
[2022-08-24] MEDS: MELATONIN 3 MG TABLET 6 MG PO (21:10)
[2022-08-24 21:13] VITALS: BP 158/70; PULSE 66
[2022-08-25] MEDS: ACETAMINOPHEN 325 MG TABLET 650 MG PO (00:02)
[2022-08-25] MEDS: OXYCODONE IR 5 MG TABLET PO (00:02)
[2022-08-25 03:36] VITALS: BP 150/71; PULSE 66; RESP 16; TEMP 36.1; O2SAT 96
[2022-08-25 06:38] LABS: Add Manual Diff / Slide Review NO; Basophils Absolute Auto 0 /uL (0-100); Basophils Percent Auto 0.2 % (0-2); Eosinophils Absolute Auto 100 /uL (0-450); Eosinophils Percent Auto 1.5 % (2-4); Hematocrit 32.5 % (41-53); Lymphocytes Absolute Auto 900 /uL (1100-4500); Lymphocytes Percent Auto 11.2 % (25-40); Mean Corpuscular HGB Conc 33.7 % (30-36); Mean Corpuscular Hemoglobin 30.7 PG (26-34); Mean Corpuscular Volume 90.9 fL (80-100); Monocytes Absolute Auto 800 /uL (0-900); Monocytes Percent Auto 10.7 % (3-14); Neutrophils Absolute Auto 6100 /uL (1500-7000); Neutrophils Percent Auto 76.4 % (50-75); Platelet Count 180 X10^3/uL (150-400); Red Blood Cell Count 3.58 X10^6/uL (4.5-5.9); Red Cell Distribution Width 13.9 % (11.6-14.8); White Blood Cell Count 7.9 X10^3/uL (4.5-11.0)
[2022-08-25 06:46] LABS: BUN Creatinine Ratio 14.8 (6-22); Blood Urea Nitrogen 28 mg/dL (9-20); Carbon Dioxide 26 mmol/L (22-32); Chloride 108 mmol/L (98-107); Estimated Glomerular Filt Rate 37 mL/min (>60); Glucose 215 mg/dL (80-110); HEMOLYSIS < 15 (0-50); Potassium 3.9 mmol/L (3.4-5.1); Sodium 139 mmol/L (137-145)
[2022-08-25] MEDS: INSULIN GLARGINE 100 UNIT/ML 3ML PEN 20 UNIT SUBCUT (08:50)
[2022-08-25] MEDS: INSULIN LISPRO 100 UNIT/ML 3ML VIAL SUBCUT (08:50)
[2022-08-25 08:51] VITALS: BP 156/87; PULSE 68
[2022-08-25] MEDS: TACROLIMUS 0.5 MG CAPSULE PO (08:51)
[2022-08-25] MEDS: predniSONE 5 MG TABLET PO (08:51)
[2022-08-25] MEDS: carvediloL 12.5 MG TABLET PO (08:51)
[2022-08-25] MEDS: MYCOPHENOLATE MOFETIL 500 MG TABLET 750 MG PO (08:54)
[2022-08-25] MEDS: LORATADINE 10 MG TABLET PO (08:54)
[2022-08-25] MEDS: TAMSULOSIN 0.4 MG CAPSULE 0.8 MG PO (08:55)
[2022-08-25] MEDS: cefTRIAXone 1,000 MG in SODIUM CHLORIDE 0.9% 100 ML 200 MG IV (08:56)
[2022-08-25] MEDS: HEPARIN 5,000 UNIT/ML VIAL 5000 UNIT SUBCUT (08:56)
[2022-08-25] MEDS: FENOFIBRATE, MICRONIZED 67 MG CAPSULE PO (08:56)
[2022-08-25] MEDS: allopurinoL 100 MG TABLET PO (08:56)
[2022-08-25] MEDS: PHENAZOPYRIDINE 100 MG TABLET PO (08:56)
[2022-08-25] MEDS: ASPIRIN EC 81 MG TABLET PO (08:57)
[2022-08-25 11:00] VITALS: BP 156/87; PULSE 68
--- NOTE | 2022-08-25 11:26 | PM.DS.1 ---
History of Present Illness History of Present Illness Chief complaint: UTI sent by DR Horta: Bernardo Barakat is a 72-year-old male with past medical history of renal cell carcinoma s/p left nephrectomy, urinary retention with self catheterization, recurrent UTI's, type 2 diabetes, hyperlipidemia and gout who presents with subjective fever/chills and foul-smelling urine. Patient straight caths himself up to 10x per day. He says the past couple days he noticed worsening color and smell of his urine. Then today he developed subjective fever/chills so came to the ED. In the ED his UA showed pyuria consistent with UTI. He was afebrile. He denies flank pain. No CP, SOB, abd pain, dairrhea or NV. Discharge Providers Provider Date of admission: 08/23/22 11:26 Discharge Date: 08/25/22 Primary care physician: Doctor Dailey, Discharge provider: Scotty Terrazas DO Summary Hospital Course Discharge Diagnosis: # acute complicated UTI -UA with significant pyuria, patient has history of muliple UTI's -previous cultures growing enteroccus -continue Rocephin and vanc -blood culture neg at 24 hours -urine culture with pansensitive E. coli -doubt pyelo given afebrile and no leukocytosis, renal US shows no stones and normal single kidney -dc home on po cipro x5 more days # [place] on CKD stage 3, improving -Cr 2.55, baseline 1.7 -IVF -monitor and avoid nephrotoxic agents -Cr now downtrending to 1.89 # renal cell carcinoma s/p left nephrectomy -continue home tacrolimus, prednisone and mycophenolate # flaccid bladder -patient wants to self cath while admitted, provided with catheter -continue home Flomax -oxy PRN for urethral pain # type 2 diabetes -continue basal insulin and sliding scale # hyperlipidemia -continue home fibrate Hospital Course: Admitted for UTI from self-cath and put on vanc and rocephin due to history of enteroccus. Urine culture grew pansensitive E. coli so discharged home on po cipro x5 days to complete 1 week of treatment. Time Spent with Patient Time spent: Greater than 30 minutes Exam Vital Signs (past 8 hours): - 08/25/22 03:36 08/25/22 08:51 08/25/22 10:41 Temperature 97 F L Pulse Rate 66 68 Respiratory Rate 16 Blood Pressure 150/71 H 156/87 H Pulse Oximetry 96 Oxygen Delivery Method Room Air Oxygen Delivery Method Room Air Oxygen Flow Rate 0 Narrative Exam Narrative: GEN: no acute distress, obese HEENT: moist mucous membranes, PERRL NECK: trachea midline, no JVD CV: regular rate and rhythm, no murmurs PULM: clear bilaterally ABD: soft, nontender, nondistended, no organomegaly EXT: warm and well perfused with no edema NEURO: awake, alert, oriented, no focal deficits Objective Labs 08/25/22 05:25 08/25/22 05:25 Labs: Laboratory Results - last 24 hr 08/25/22 08/25/22 05:25 05:25 WBC 7.9 RBC 3.58 L Hgb 11.0 L Hct 32.5 L MCV 90.9 MCH 30.7 MCHC 33.7 RDW 13.9 Plt Count 180 Neut % (Auto) 76.4 H Lymph % (Auto) 11.2 L [place] % (Auto) 10.7 Eos % (Auto) 1.5 L Baso % (Auto) 0.2 Neut # (Auto) 6100 Lymph # (Auto) 900 L [place] # (Auto) 800 Eos # (Auto) 100 Baso # (Auto) 0 Sodium 139 Potassium 3.9 Chloride 108 H Carbon Dioxide 26 BUN 28 H Creatinine 1.89 H Estimated GFR 37 L BUN/Creatinine Ratio 14.8 Glucose 215 H Calcium 10.0 PFSH Medical History Arthritis Asthma Chronic iron deficiency anemia COVID-19 Elevated PSA End-stage renal disease (ESRD) Flaccid bladder Gout Gouty arthropathy History of renal cell cancer Hyperlipidemia associated with type 2 diabetes mellitus Hypersomnia Insomnia, persistent Obstructive sleep apnea of adult Restless legs syndrome (RLS) Type 2 diabetes mellitus (~2000) Urinary retention UTI (urinary tract infection) Surgical History Kidney transplant status, cadaveric Status post left hip replacement (~2018) Social History marital status: number of children: 1 household members: children education level: college occupational status: previously employed 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 Your urine grew a normal E. coli. You received IV antibiotics while in the hospital and your infection improved. You will now need to finish a course of oral antibiotics at home. Discharge orders & Medications Prescriptions: New ciprofloxacin HCl [Cipro] 500 mg tablet 500 mg PO BID 5 Days Qty: 10 0RF Rx Instructions: start evening of 08/25 oxycodone 5 mg tablet 5 mg PO BEDTIME PRN (Reason: pain) Qty: 15 0RF Continued Toujeo SoloStar U-300 Insulin 300 UNIT/1 ML insulin pen 0 u SC QDAY Qty: 1.5 allopurinol 100 mg tablet 100 mg PO DAILY fenofibrate 40 mg tablet 40 mg PO DAILY prednisone 5 mg tablet 5 mg PO DAILY tacrolimus 0.5 mg capsule 1 mg PO Q12H Rx Instructions: 1 mg AM, 1.5 mg PM mycophenolate sodium [Myfortic] 180 mg tablet,delayed release (DR/EC) 720 mg PO BID furosemide 40 mg tablet 120 mg PO BID Patient Comments: TAKE 3 TABLETS BY MOUTH IN THE MORNING AND 3 TABLETS BEFORE BEDTIME. (DME) AirCurve 10 VAuto See Rx Instructions Qty: 1 Dose Instruction: As directed Rx Instructions: Pressure: EPAP 6 IPAP 12 DME: [employer] carvedilol 12.5 mg tablet 12.5 mg PO BID Rx Instructions: must administer with a meal/food Trulicity 1.5 mg/0.5 mL pen injector 1.5 mg SUBCUT QWEEK Novolog FlexPen U-100 Insulin 100 unit/mL (3 mL) insulin pen 10 unit SUBCUT TID Qty: 15 0RF tamsulosin 0.4 mg capsule 0.8 mg PO BID Follow up/Referrals: Doctor Ashlie, MD [Primary Care Provider] - Visit Report/Discharge Packet Instructions: DI for Urinary Tract Infection (UTI), Renal (Kidney) Disease Diet -- For People Not on Dialysis, Ciprofloxacin Stand Alone Forms: Patient Portal/API, Stroke Signs & Symptoms Discharge Data Primary Care Provider: Doctor Ashlie Attending Provider: Scotty Terrazas Admit Date/Time: 08/23/22 11:26 Discharges patient from system. Discharge Date/Time: 08/25/22 11:10 Quality VTE Deep Vein Thrombosis/Pulmonary Embolism Present on Admission: No
--- NOTE | 2022-08-25 12:00 | PC.NURSE ---
Patient discharge done at bedside with patient only. Patient states understanding of all material covered, all questions and concerns addressed. Aware of antibx treatment continuing and that it was sent to local pharm. of his choosing. All belongings were gathered by patient. IV removed, tolerated well. Patient request to walk out of hospital with escort vs. using wheelchair. Patient left in stable condition.
[2022-08-25 23:35] LABS: Acinetobacter calcoa-baumannii Not Detected (Not Detect); Bacteroides fragilis Not Detected (Not Detect); CTX-M Resistance Not Detected (Not Detect); Candida albicans Not Detected (Not Detect); Candida auris Not Detected (Not Detect); Candida glabrata Not Detected (Not Detect); Candida krusei Not Detected (Not Detect); Candida parapsilosis Not Detected (Not Detect); Enterobacter cloacae complex Not Detected (Not Detect); Enterobacterales DETECTED (Not Detect); Enterococcus faecalis Not Detected (Not Detect); Enterococcus faecium Not Detected (Not Detect); Haemophilus influenzae Not Detected (Not Detect); Klebsiella aerogenes Not Detected (Not Detect); Listeria monocytogenes Not Detected (Not Detect); Neisseria meningitidis Not Detected (Not Detect); Proteus species Not Detected (Not Detect); Pseudomonas aeruginosa Not Detected (Not Detect); Salmonella species Not Detected (Not Detect); Serratia marcescens Not Detected (Not Detect); Staphylococcus epidermidis Not Detected (Not Detect); Staphylococcus lugdunensis Not Detected (Not Detect); Staphylococcus species Not Detected (Not Detect); Stenotrophomonas maltophilia Not Detected (Not Detect); Streptococcus agalactiae (Gr B Not Detected (Not Detect); Streptococcus pneumonia Not Detected (Not Detect); Streptococcus pyogenes (Gr A) Not Detected (Not Detect); Streptococcus species Not Detected (Not Detect)
[2022-08-25 23:36] LABS: Candida tropicalis Not Detected (Not Detect); Cryptococcus neoformans/gatti Not Detected (Not Detect)
[2022-08-25 23:45] LABS: IMP Resistance Not Detected (Not Detect); KPC Resistance Not Detected (Not Detect)
[2022-08-25 23:46] LABS: NDM Resistance Not Detected (Not Detect); OXA-48-like Resistance Not Detected (Not Detect); VIM Resistance Not Detected (Not Detect)
[2022-08-28 07:12] LABS: mcr-1 Resistance Not Detected (Not Detect)
== END 2022-08-25 11:10 | disposition home or self-care (01) ==
LOC: ED 09:32 → AC 11:58
PROVIDERS: Admitting Provider Student in an Organized Health Care Education/Training Program; Emergency Provider Emergency Medicine; Referring Provider Emergency Medicine; Visit Provider Student in an Organized Health Care Education/Training Program
DX: T83.518A Infection and inflammatory reaction due to other urinary catheter, initial encounter (principal); C64.9 Malignant neoplasm of unspecified kidney, except renal pelvis; N17.9 Acute kidney failure, unspecified; N39.0 Urinary tract infection, site not specified; E11.22 Type 2 diabetes mellitus with diabetic chronic kidney disease; N18.30 Chronic kidney disease, stage 3 unspecified; Z90.5 Acquired absence of kidney; Z79.4 Long term (current) use of insulin; E78.5 Hyperlipidemia, unspecified; B96.20 Unspecified Escherichia coli [E. coli] as the cause of diseases classified elsewhere
CPT/HCPCS: 36415; 51798; 71045; 76770; 80048; 80053; 81001; 81003; 82550; 82962; 83605; 83880; 84145; 84484; 85025; 87040; 87077; 87086; 87154; 87186; 87635; 93005; 93010; 96365; 96366; 96367; 96372; 99284; C9803; G0378; J0696; J1644; J1815; J7507

== ENCOUNTER → 2022-09-25 09:04 | Outpatient (CLI) | payer MEDICARE, OTHER, SELFPAY ==
[2022-08-23 12:16] VITALS: BMI 34.0
[2022-09-25 10:37] LABS: Appearance Urine UA CLEAR; Bilirubin Urine UA NEGATIVE (NEGATIVE); Color Urine UA YELLOW; Glucose Urine UA 1+ g/dL (Negative); Ketones Urine UA NEGATIVE (NEGATIVE); Leukocyte Esterase Urine UA NEGATIVE (NEGATIVE); Nitrite Urine UA NEGATIVE (Negative); Occult Blood Urine UA NEGATIVE (Negative); Protein Urine UA 2+ (Negative); Urobilinogen Urine UA 0.2 E.U./dL (0.2)
[2022-09-25 10:46] LABS: Bacteria Urine Many (>30); Culture Indicated Urine Cult Not Indicated; RBC Urine None Seen (0-5/HPF); Squamous Epithelial Cell Urine 0-1 /HPF (0-5/HPF); WBC Urine 1-5/HPF (0-5/HPF)
[2022-09-25 11:04] LABS: Add Manual Diff / Slide Review NO; Basophils Absolute Auto 0 /uL (0-100); Basophils Percent Auto 0.2 % (0-2); Eosinophils Absolute Auto 100 /uL (0-450); Eosinophils Percent Auto 1.2 % (2-4); Hematocrit 39.9 % (41-53); Hemoglobin 13.5 g/dL (13.5-17.5); Lymphocytes Absolute Auto 1600 /uL (1100-4500); Lymphocytes Percent Auto 15.7 % (25-40); Mean Corpuscular HGB Conc 33.8 % (30-36); Mean Corpuscular Hemoglobin 30.9 PG (26-34); Mean Corpuscular Volume 91.5 fL (80-100); Monocytes Absolute Auto 800 /uL (0-900); Monocytes Percent Auto 7.8 % (3-14); Neutrophils Absolute Auto 7700 /uL (1500-7000); Neutrophils Percent Auto 75.1 % (50-75); Platelet Count 216 X10^3/uL (150-400); Red Blood Cell Count 4.36 X10^6/uL (4.5-5.9); Red Cell Distribution Width 14.7 % (11.6-14.8); White Blood Cell Count 10.2 X10^3/uL (4.5-11.0)
[2022-09-25 11:07] LABS: Creatinine Urine Random 59.6 mg/dL; Protein (Total) Urine Random 128 mg/dL (0-12); Protein Creatinine Ratio Urine 2.14 GRAM/24H
[2022-09-25 11:23] LABS: Alanine Aminotransferase 17 IU/L (<50); Albumin 3.8 g/dL (3.5-5.0); Albumin Globulin Ratio 1.5 (1.0-2.8); Alkaline Phosphatase 122 U/L (38-126); Aspartate Aminotransferase 16 IU/L (17-59); BUN Creatinine Ratio 13.9 (6-22); Bilirubin Total 0.3 mg/dL (0.2-1.3); Blood Urea Nitrogen 24 mg/dL (9-20); Calcium 9.8 mg/dL (8.4-10.2); Carbon Dioxide 29 mmol/L (22-32); Chloride 105 mmol/L (98-107); Cholesterol 169 mg/dL (140-199); Estimated Glomerular Filt Rate 41 mL/min (>60); Globulin 2.5 g/dL (1.7-4.1); Glucose 117 mg/dL (80-110); HDL Cholesterol 58 mg/dL (40-60); HEMOLYSIS < 15 (0-50); LDL Cholesterol Calculated 82 mg/dL (<100); Magnesium 1.7 mg/dL (1.6-2.3); Phosphorous 2.6 mg/dL (2.3-3.7); Potassium 4.2 mmol/L (3.4-5.1); Sodium 140 mmol/L (137-145); Total Protein 6.3 g/dL (6.3-8.2); Triglycerides 147 mg/dL (35-150)
[2022-09-25 11:47] LABS: TSH w/ Reflex to FT4 2.25 uIU/mL (0.47-4.68)
[2022-09-26 03:14] LABS: x Labcorp Estim. Avg Glu (eAG) 151 mg/dL (.); x Labcorp Hemoglobin A1c 6.9 % (4.8-5.6)
[2022-09-28 12:05] LABS: Tacrolimus 7.7
== END ==
PROVIDERS: Referring Provider Internal Medicine Nephrology; Visit Provider Internal Medicine Nephrology
DX: Z94.0 Kidney transplant status (principal); E11.22 Type 2 diabetes mellitus with diabetic chronic kidney disease; Z48.298 Encounter for aftercare following other organ transplant; T86.90 Unspecified complication of unspecified transplanted organ and tissue; E83.40 Disorders of magnesium metabolism, unspecified; N39.0 Urinary tract infection, site not specified; N18.32 Chronic kidney disease, stage 3b; Z79.4 Long term (current) use of insulin
CPT/HCPCS: 80053; 80061; 80197; 81001; 82570; 83036; 83735; 84100; 84156; 84443; 85025

== ENCOUNTER → 2022-11-08 08:36 | Outpatient (CLI) | payer MEDICARE, OTHER, SELFPAY ==
[2022-08-23 12:16] VITALS: BMI 34.0
[2022-11-08 10:15] LABS: Appearance Urine UA SL CLOUDY; Bilirubin Urine UA NEGATIVE (NEGATIVE); Color Urine UA YELLOW; Glucose Urine UA NEGATIVE (Negative); Ketones Urine UA NEGATIVE (NEGATIVE); Leukocyte Esterase Urine UA 1+ (NEGATIVE); Nitrite Urine UA NEGATIVE (Negative); Occult Blood Urine UA TRACE-INTACT (Negative); Protein Urine UA 1+ (Negative); Specific Gravity Urine UA 1.015 (1.000-1.035); Urobilinogen Urine UA 0.2 E.U./dL (0.2)
[2022-11-08 10:24] LABS: Bacteria Urine Many (>30); Culture Indicated Urine Specimen Cultured; RBC Urine None Seen (0-5/HPF); Squamous Epithelial Cell Urine 1-5 /HPF (0-5/HPF); WBC Urine 10-30/HPF (0-5/HPF)
[2022-11-08 10:48] LABS: C-Reactive Protein Quant 7.9 mg/dL (<1.0); Rheumatoid Factor 11.6 IU/mL (<12.0)
[2022-11-08 11:07] LABS: Prostate Specific Antigen 1.67 ng/mL (0.10-4.00)
[2022-11-08 11:38] LABS: Erythrocyte Sedimentation Rate 41 MM/HR (0-15)
[2022-11-08 16:38] LABS: Hep C Virus Ab w/Reflex Quant NEGATIVE s/c (NEGATIVE); Hepatitis B Surface Antigen NEGATIVE s/c (NEGATIVE)
[2022-11-09 04:30] LABS: Hepatitis B Surf AB Quant <3.1 mIU/mL (Immunity>9.9)
[2022-11-10 00:08] LABS: Hepatitis B Core AB w/Reflex Negative (Negative)
[2022-11-12 16:39] LABS: ANA Screen, IFA Negative (.); Antimyeloperoxidase Antibodies <0.2 units (0.0-0.9); Antiproteinase 3 Antibodies <0.2 units (0.0-0.9)
== END ==
PROVIDERS: Specialist; Referring Provider Internal Medicine; Visit Provider Internal Medicine
DX: R97.20 Elevated prostate specific antigen [PSA] (principal); M31.0 Hypersensitivity angiitis
CPT/HCPCS: 36415; 81001; 82595; 84153; 85651; 86038; 86140; 86430; 86704; 86706; 86803; 87086; 87147; 87340

== ENCOUNTER → 2022-11-20 13:25 | Outpatient (CLI) | payer MEDICARE, OTHER, SELFPAY ==
[2022-08-23 12:16] VITALS: BMI 34.0
[2022-11-20 16:27] LABS: BUN Creatinine Ratio 23.5 (6-22); Blood Urea Nitrogen 46 mg/dL (9-20); Calcium 9.6 mg/dL (8.4-10.2); Carbon Dioxide 29 mmol/L (22-32); Chloride 105 mmol/L (98-107); Estimated Glomerular Filt Rate 35 mL/min (>60); Glucose 124 mg/dL (80-110); HEMOLYSIS < 15 (0-50); Potassium 4.2 mmol/L (3.4-5.1); Sodium 140 mmol/L (137-145)
[2022-12-01 17:07] LABS: Tacrolimus 9.5
== END ==
PROVIDERS: PCP Internal Medicine; Referring Provider Specialist; Visit Provider Specialist
DX: N18.31 Chronic kidney disease, stage 3a (principal); N18.4 Chronic kidney disease, stage 4 (severe); I10 Essential (primary) hypertension; I25.10 Atherosclerotic heart disease of native coronary artery without angina pectoris; C64.9 Malignant neoplasm of unspecified kidney, except renal pelvis; E11.65 Type 2 diabetes mellitus with hyperglycemia; Z94.0 Kidney transplant status; E83.9 Disorder of mineral metabolism, unspecified; N18.9 Chronic kidney disease, unspecified; M10.9 Gout, unspecified; N40.0 Benign prostatic hyperplasia without lower urinary tract symptoms; R80.9 Proteinuria, unspecified
CPT/HCPCS: 36415; 80048; 80197

== ENCOUNTER → 2023-01-15 08:10 | Outpatient (CLI) | payer MEDICARE, OTHER, SELFPAY ==
[2022-08-23 12:16] VITALS: BMI 34.0
[2023-01-15 10:08] LABS: Add Manual Diff / Slide Review NO; Basophils Absolute Auto 0 /uL (0-100); Basophils Percent Auto 0.3 % (0-2); Eosinophils Absolute Auto 100 /uL (0-450); Eosinophils Percent Auto 1.1 % (2-4); Hematocrit 40.1 % (41-53); Hemoglobin 13.3 g/dL (13.5-17.5); Lymphocytes Absolute Auto 2000 /uL (1100-4500); Lymphocytes Percent Auto 18.8 % (25-40); Mean Corpuscular HGB Conc 33.1 % (30-36); Mean Corpuscular Hemoglobin 30.5 PG (26-34); Mean Corpuscular Volume 92.2 fL (80-100); Monocytes Absolute Auto 800 /uL (0-900); Monocytes Percent Auto 7.8 % (3-14); Neutrophils Absolute Auto 7500 /uL (1500-7000); Platelet Count 267 X10^3/uL (150-400); Red Blood Cell Count 4.35 X10^6/uL (4.5-5.9); Red Cell Distribution Width 14.1 % (11.6-14.8); White Blood Cell Count 10.4 X10^3/uL (4.5-11.0)
[2023-01-15 11:06] LABS: Alanine Aminotransferase 24 IU/L (<50); Albumin 3.5 g/dL (3.5-5.0); Albumin Globulin Ratio 1.5 (1.0-2.8); Alkaline Phosphatase 87 U/L (38-126); Aspartate Aminotransferase 19 IU/L (17-59); BUN Creatinine Ratio 26.6 (6-22); Bilirubin Total 0.3 mg/dL (0.2-1.3); Blood Urea Nitrogen 50 mg/dL (9-20); Calcium 9.9 mg/dL (8.4-10.2); Carbon Dioxide 24 mmol/L (22-32); Chloride 110 mmol/L (98-107); Estimated Glomerular Filt Rate 37 mL/min (>60); Globulin 2.4 g/dL (1.7-4.1); Glucose 103 mg/dL (80-110); HEMOLYSIS < 15 (0-50); Magnesium 2.2 mg/dL (1.6-2.3); Phosphorous 3.5 mg/dL (2.3-3.7); Sodium 142 mmol/L (137-145); Total Protein 5.9 g/dL (6.3-8.2)
[2023-01-15 11:08] LABS: Potassium 3.9 mmol/L (3.4-5.1)
[2023-01-16 12:12] LABS: Tacrolimus 4.5
== END ==
PROVIDERS: PCP Internal Medicine; Referring Provider Internal Medicine Nephrology; Visit Provider Internal Medicine Nephrology
DX: Z94.0 Kidney transplant status (principal); Z48.298 Encounter for aftercare following other organ transplant; T86.90 Unspecified complication of unspecified transplanted organ and tissue; E83.40 Disorders of magnesium metabolism, unspecified
CPT/HCPCS: 36415; 80053; 80197; 83735; 84100; 85025

== ENCOUNTER → 2023-02-11 08:15 | Outpatient (CLI) | payer MEDICARE, OTHER, SELFPAY ==
[2022-08-23 12:16] VITALS: BMI 34.0
[2023-02-11 08:56] LABS: Add Manual Diff / Slide Review NO; Basophils Absolute Auto 0 /uL (0-100); Basophils Percent Auto 0.3 % (0-2); Eosinophils Absolute Auto 200 /uL (0-450); Eosinophils Percent Auto 1.7 % (2-4); Hematocrit 38.2 % (41-53); Hemoglobin 12.8 g/dL (13.5-17.5); Lymphocytes Absolute Auto 2300 /uL (1100-4500); Lymphocytes Percent Auto 22.9 % (25-40); Mean Corpuscular HGB Conc 33.5 % (30-36); Mean Corpuscular Hemoglobin 31.1 PG (26-34); Mean Corpuscular Volume 92.8 fL (80-100); Monocytes Absolute Auto 700 /uL (0-900); Monocytes Percent Auto 7.6 % (3-14); Neutrophils Absolute Auto 6700 /uL (1500-7000); Neutrophils Percent Auto 67.5 % (50-75); Platelet Count 237 X10^3/uL (150-400); Red Blood Cell Count 4.11 X10^6/uL (4.5-5.9); Red Cell Distribution Width 14.5 % (11.6-14.8); White Blood Cell Count 9.9 X10^3/uL (4.5-11.0)
[2023-02-11 09:01] LABS: INR 0.9 (0.9-1.3); Prothrombin Time 10.5 SECONDS (10.1-12.7)
[2023-02-11 09:06] LABS: Appearance Urine UA CLEAR; Bilirubin Urine UA NEGATIVE (NEGATIVE); Color Urine UA YELLOW; Glucose Urine UA NEGATIVE (Negative); Ketones Urine UA NEGATIVE (NEGATIVE); Leukocyte Esterase Urine UA NEGATIVE (NEGATIVE); Nitrite Urine UA NEGATIVE (Negative); Occult Blood Urine UA NEGATIVE (Negative); Protein Urine UA 2+ (Negative); Urobilinogen Urine UA 0.2 E.U./dL (0.2)
[2023-02-11 09:08] LABS: Bacteria Urine Occasional (0-1); Culture Indicated Urine Cult Not Indicated; RBC Urine 0-1/HPF (0-5/HPF); Squamous Epithelial Cell Urine 0-1 /HPF (0-5/HPF); WBC Urine 1-5/HPF (0-5/HPF)
[2023-02-11 09:19] LABS: Alanine Aminotransferase 16 IU/L (<50); Albumin 3.4 g/dL (3.5-5.0); Albumin Globulin Ratio 1.3 (1.0-2.8); Alkaline Phosphatase 81 U/L (38-126); Aspartate Aminotransferase 20 IU/L (17-59); Bilirubin Total 0.2 mg/dL (0.2-1.3); Blood Urea Nitrogen 44 mg/dL (9-20); Calcium 9.8 mg/dL (8.4-10.2); Carbon Dioxide 25 mmol/L (22-32); Chloride 110 mmol/L (98-107); Estimated Glomerular Filt Rate 37 mL/min (>60); Globulin 2.6 g/dL (1.7-4.1); Glucose 125 mg/dL (80-110); HEMOLYSIS 18 (0-50); Magnesium 2.1 mg/dL (1.6-2.3); Potassium 3.9 mmol/L (3.4-5.1); Sodium 141 mmol/L (137-145)
[2023-02-11 09:42] LABS: Creatinine Urine Random 43.3 mg/dL; Protein (Total) Urine Random 174 mg/dL (0-12); Protein Creatinine Ratio Urine 4.01 GRAM/24H
[2023-02-13 13:31] LABS: Tacrolimus 6.2
== END ==
PROVIDERS: PCP Internal Medicine; Referring Provider Internal Medicine Nephrology; Visit Provider Internal Medicine Nephrology
DX: Z94.0 Kidney transplant status (principal); I36.1 Nonrheumatic tricuspid (valve) insufficiency
CPT/HCPCS: 36415; 80053; 80197; 81001; 82570; 83735; 84100; 84156; 85025; 85610; 87077; 87086; 87186

== ENCOUNTER → 2023-08-21 08:27 | Outpatient (CLI) | payer MEDICARE, OTHER, SELFPAY ==
[2022-08-23 12:16] VITALS: BMI 34.0
[2023-08-21 09:13] LABS: Add Manual Diff / Slide Review NO; Basophils Absolute Auto 0 /uL (0-100); Basophils Percent Auto 0.4 % (0-2); Eosinophils Absolute Auto 100 /uL (0-450); Hematocrit 38.6 % (41-53); Hemoglobin 12.7 g/dL (13.5-17.5); Lymphocytes Absolute Auto 2300 /uL (1100-4500); Lymphocytes Percent Auto 22.1 % (25-40); Mean Corpuscular HGB Conc 32.9 % (30-36); Mean Corpuscular Hemoglobin 30.2 PG (26-34); Mean Corpuscular Volume 91.9 fL (80-100); Monocytes Absolute Auto 900 /uL (0-900); Monocytes Percent Auto 8.9 % (3-14); Neutrophils Absolute Auto 6900 /uL (1500-7000); Neutrophils Percent Auto 67.6 % (50-75); Platelet Count 227 X10^3/uL (150-400); Red Cell Distribution Width 14.1 % (11.6-14.8); White Blood Cell Count 10.2 X10^3/uL (4.5-11.0)
[2023-08-21 09:53] LABS: Alanine Aminotransferase 12 IU/L (<50); Albumin 3.7 g/dL (3.5-5.0); Albumin Globulin Ratio 1.6 (1.0-2.8); Alkaline Phosphatase 96 U/L (38-126); Aspartate Aminotransferase 16 IU/L (17-59); BUN Creatinine Ratio 16.7 (6-22); Bilirubin Total 0.5 mg/dL (0.2-1.3); Blood Urea Nitrogen 45 mg/dL (9-20); Calcium 9.5 mg/dL (8.4-10.2); Carbon Dioxide 28 mmol/L (22-32); Chloride 113 mmol/L (98-107); Estimated Glomerular Filt Rate 24 mL/min (>60); Globulin 2.3 g/dL (1.7-4.1); Glucose 120 mg/dL (80-110); HEMOLYSIS < 15 (0-50); Magnesium 1.8 mg/dL (1.6-2.3); Phosphorous 3.4 mg/dL (2.3-3.7); Potassium 3.8 mmol/L (3.4-5.1); Sodium 146 mmol/L (137-145)
[2023-08-21 09:55] LABS: Appearance Urine UA CLEAR; Bilirubin Urine UA NEGATIVE (NEGATIVE); Color Urine UA YELLOW; Glucose Urine UA NEGATIVE (Negative); Ketones Urine UA NEGATIVE (NEGATIVE); Leukocyte Esterase Urine UA NEGATIVE (NEGATIVE); Nitrite Urine UA NEGATIVE (Negative); Occult Blood Urine UA NEGATIVE (Negative); Protein Urine UA 2+ (Negative); Specific Gravity Urine UA 1.015 (1.000-1.035); Urobilinogen Urine UA 0.2 E.U./dL (0.2)
[2023-08-21 10:03] LABS: Bacteria Urine None Seen; Culture Indicated Urine Cult Not Indicated; RBC Urine None Seen (0-5/HPF); Squamous Epithelial Cell Urine 0-1 /HPF (0-5/HPF); Urine Volume 10mL (spun); WBC Urine 0-1/HPF (0-5/HPF)
[2023-08-21 10:48] LABS: Creatinine Urine Random 58.6 mg/dL; Protein (Total) Urine Random 124 mg/dL (0-12); Protein Creatinine Ratio Urine 2.11 GRAM/24H
== END ==
LOC: LAB 08:33
PROVIDERS: PCP Internal Medicine; Referring Provider Internal Medicine Nephrology; Visit Provider Specialist
DX: Z94.0 Kidney transplant status (principal)
CPT/HCPCS: 36415; 80053; 80197; 81001; 82570; 83735; 84100; 84156; 85025

== ENCOUNTER 2023-08-28 09:56 | Observation (INO) | payer MEDICARE, OTHER, SELFPAY ==
[2022-08-23 12:16] VITALS: BMI 34.0
[2023-08-28] VITALS (10 sets, daily range): BP systolic 129–151; BP diastolic 58–67; PULSE 63–70; RESP 14–19; TEMP 36.3–36.9; O2SAT 97–98; BMI 33.6; BMI 34.0
--- NOTE | 2023-08-28 | DI.RAD.S_ITS ---
PROCEDURE: XR ACUTE ABDOMEN SERIES INDICATIONS: C/O CONSTIPATION, ABD DISTENTION TECHNIQUE: One view chest and two views of the abdomen were acquired. COMPARISON: [facility], ABDOMEN ACUTE SERIES, 05/21/2016, 8:25. [facility], ABDOMEN ACUTE SERIES, 05/08/2016, 17:16. FINDINGS: Surgical changes and devices: Left hip arthroplasty. Surgical clips projecting over the abdomen. Chest: Lungs are clear. Heart size is normal. No pleural effusions. No pneumoperitoneum. Abdomen: Bowel gas pattern is normal. No suspicious calcifications. Visualized solid organ contours appear normal. Bones: No suspicious bony lesions. IMPRESSION: No acute cardiopulmonary process. Nonobstructive bowel gas pattern. Moderate stool burden. Dictated by: Vance Mejias M.D. on 08/28/2023 at 12:40 Approved by: Vance Mejias M.D. on 08/28/2023 at 12:41
[2023-08-28 11:15] LABS: Urine Volume 10mL (spun)
[2023-08-28 11:19] LABS: Bacteria Urine Few (2-10); Culture Indicated Urine Specimen Cultured; RBC Urine None Seen (0-5/HPF); Squamous Epithelial Cell Urine 0-1 /HPF (0-5/HPF); WBC Urine 30-100/HPF (0-5/HPF)
[2023-08-28] MEDS: SODIUM CHLORIDE 0.9% 1,000 ML 1000 ML IV (11:27)
[2023-08-28 11:30] LABS: Add Manual Diff / Slide Review NO; Basophils Absolute Auto 100 /uL (0-100); Basophils Percent Auto 0.4 % (0-2); Eosinophils Absolute Auto 100 /uL (0-450); Eosinophils Percent Auto 0.5 % (2-4); Hematocrit 36.9 % (41-53); Lymphocytes Absolute Auto 1600 /uL (1100-4500); Lymphocytes Percent Auto 8.3 % (25-40); Mean Corpuscular HGB Conc 32.6 % (30-36); Mean Corpuscular Hemoglobin 29.6 PG (26-34); Mean Corpuscular Volume 90.7 fL (80-100); Monocytes Absolute Auto 1600 /uL (0-900); Monocytes Percent Auto 8.2 % (3-14); Neutrophils Absolute Auto 15800 /uL (1500-7000); Neutrophils Percent Auto 82.6 % (50-75); Platelet Count 188 X10^3/uL (150-400); Red Blood Cell Count 4.07 X10^6/uL (4.5-5.9); Red Cell Distribution Width 13.9 % (11.6-14.8); White Blood Cell Count 19.1 X10^3/uL (4.5-11.0)
--- NOTE | 2023-08-28 11:34 | PC.NURSE ---
Bladder scan post cath 1 hour ago = 136.
--- NOTE | 2023-08-28 11:35 | ED_ITS ---
HPI - Male Genitourinary General Chief complaint: Urogenital-Male Stated complaint: uti Time Seen by Provider: 08/28/23 11:21 Source: patient Mode of arrival: Ambulatory History of Present Illness HPI Narrative: Patient has appointment tomorrow with his [facility] renal transplant team, dr kaur, patient had transplant 3 years ago. He is on tacrolimus. History UTI. Three days ago has had decreased urine output, he does self catheterization and has had discomfort with self catheterization. Feels like another UTI. No fever chills. No back pain. Patient has history of renal cancer. Related Data Home Medications Medication Instructions Recorded Confirmed allopurinol 100 mg tablet 50 mg PO DAILY 01/25/20 08/28/23 fenofibrate 40 mg tablet 48 mg PO DAILY 01/25/20 08/28/23 mycophenolate sodium 180 mg 180 mg PO BID 01/25/20 08/28/23 tablet,delayed release (Myfortic) prednisone 5 mg tablet 5 mg PO DAILY 01/25/20 08/28/23 tamsulosin 0.4 mg capsule 0.8 mg PO BID 01/28/20 08/28/23 carvedilol 12.5 mg tablet 12.5 mg PO BEDTIME 07/20/20 08/28/23 AirCurve 10 VAuto #1 ea 01/10/21 08/28/23 atorvastatin 40 mg PO QPM 11/22/22 08/28/23 furosemide 40 mg tablet 40 mg PO TID 11/22/22 08/28/23 sildenafil 50 mg tablet 50 mg PO DAILY 08/28/23 08/28/23 Previous Rx's Medication Instructions Recorded insulin aspart U-100 100 unit/mL 10 unit (0.1 mL) SUBCUT TID 05/27/19 (3 mL) subcutaneous pen (Novolog Sliding scale #15 mL FlexPen U-100 Insulin aspart) bisacodyl 10 mg rectal suppository 10 mg VT DAILY PRN constipation 08/30/23 (Dulcolax (bisacodyl)) #12 ea cephalexin 500 mg capsule 500 mg PO TID #42 caps 08/30/23 Allergies Allergy/AdvReac Type Severity Reaction Status Date / Time No Known Drug Allergies Allergy Verified 08/28/23 10:05 Review of Systems Review of Systems Narrative: GENERAL: negative chills, fatigue, malaise, fever, sweats. HEENT: negative sinus pain, ear pain, sore throat RESPIRATORY: negative dyspnea, cough CARDIOVASCULAR: negative chest pain, palpitations GASTROINTESTINAL: negative nausea, vomiting, abdominal pain : Negative for frequency negative hematuria positive dysuria MUSCULOSKELETAL: negative muscle or bony pain SKIN: negative rash, skin lesions NEUROLOGIC: negative weakness, numbness Patient History Medical History Erectile dysfunction associated with vasculopathy Erectile dysfunction associated with type 2 diabetes mellitus History of UTI COVID-19 Elevated PSA History of renal cell cancer Urinary retention Flaccid bladder Gout UTI (urinary tract infection) Arthritis Restless legs syndrome (RLS) Type 2 diabetes mellitus (~2000) End-stage renal disease (ESRD) Hyperlipidemia associated with type 2 diabetes mellitus Chronic iron deficiency anemia Gouty arthropathy Asthma Insomnia, persistent Obstructive sleep apnea of adult Hypersomnia Surgical History Kidney transplant status, cadaveric Status post left hip replacement (~2018) Social History marital status: number of children: 1 household members: children education level: college occupational status: previously employed Previous occupational history: [employer] Smoking Status: Never smoker alcohol intake: never substance use type: does not use Smoking Status: Never smoker alcohol intake frequency: holidays/special occasions only Substance Use Type: does not use Exam Narrative Exam Narrative: GENERAL: in no distress, not toxic not dyspneic HEAD: Normocephalic. EYES: Pupils equal round ENT: Mucous membranes moist. NECK: Trachea midline. CARDIOVASCULAR: Regular rate and rhythm RESPIRATORY: Clear to auscultation. Breath sounds equal bilaterally. No wheezes, rales, or rhonchi. GASTROINTESTINAL: Abdomen soft, mild suprapubic tenderness. Bowel sounds are present. No peritoneal signs. No pain out of proportion to exam EXTREMITIES: No gross deformities. BACK: No flank tenderness. NEURO: AOx4. SKIN: Warm and dry PSYCH: Not anxious, is cooperative Initial Vital Signs Initial Vital Signs: Vital Signs Temperature 98.3 F 08/28/23 09:57 Pulse Rate 67 08/28/23 09:57 Respiratory Rate 15 08/28/23 09:57 Blood Pressure 145/67 H 08/28/23 09:57 Pulse Oximetry 97 08/28/23 09:57 Oxygen Delivery Method Room Air 08/28/23 09:57 Course Orders Ordered: Discontinued Medications Acetaminophen (Acetaminophen 325 Mg Tablet) 650 mg PO Q6H PRN PRN Reason: Fever/Mild Pain (1-3) Allopurinol (Allopurinol 100 Mg Tablet) 50 mg PO DAILY [facility] Last Admin: 08/30/23 08:23 Dose: 50 mg Documented By: Admin: 08/29/23 08:28 Dose: Not Given Documented By: EV Atorvastatin Calcium (Atorvastatin 20 Mg Tablet) 40 mg PO BEDTIME [facility] Last Admin: 08/29/23 20:28 Dose: 40 mg Documented By: Admin: 08/28/23 21:53 Dose: Not Given Documented By: SR Benzocaine (Benzocaine/Menthol 1 Ghada Pkt) 1 each PO Q1HR PRN PRN Reason: Sore Throat Benzonatate (Benzonatate 100 Mg Capsule) 100 mg PO TID PRN PRN Reason: Cough Bisacodyl (Bisacodyl 10 Mg Supp) 10 mg VT NOW ONE Stop: 08/29/23 10:49 Last Admin: 08/29/23 17:06 Dose: Not Given Documented By: KDK Carvedilol (Carvedilol 12.5 Mg Tablet) 12.5 mg PO BEDTIME [facility] Last Admin: 08/29/23 20:28 Dose: 12.5 mg Documented By: Admin: 08/28/23 21:53 Dose: Not Given Documented By: SR Docusate Sodium (Docusate 100 Mg Capsule) 100 mg PO BID [facility] Last Admin: 08/30/23 08:23 Dose: 100 mg Documented By: Admin: 08/29/23 20:29 Dose: 100 mg Documented By: Admin: 08/29/23 08:27 Dose: 100 mg Documented By: Admin: 08/28/23 21:55 Dose: Not Given Documented By: SR Fenofibrate (Fenofibrate, Micronized 67 Mg Capsule) 67 mg PO DAILY [facility] Last Admin: 08/30/23 08:24 Dose: Not Given Documented By: Admin: 08/29/23 08:30 Dose: Not Given Documented By: EV Furosemide (Furosemide 40 Mg Tablet) 40 mg PO TID [facility] Last Admin: 08/30/23 08:23 Dose: 40 mg Documented By: Admin: 08/29/23 20:29 Dose: 40 mg Documented By: Admin: 08/29/23 13:31 Dose: 40 mg Documented By: Admin: 08/29/23 08:27 Dose: 40 mg Documented By: Admin: 08/28/23 21:55 Dose: Not Given Documented By: SR Heparin Sodium (Porcine) (Heparin 5,000 Unit/Ml Vial) 5,000 unit SUBCUT BID KIM Last Admin: 08/30/23 08:24 Dose: Not Given Documented By: Admin: 08/29/23 20:30 Dose: 5,000 unit Documented By: Admin: 08/29/23 08:35 Dose: Not Given Documented By: Admin: 08/28/23 21:59 Dose: 5,000 unit Documented By: Sodium Chloride (Normal Saline 0.9%) 1,000 mls @ 1,000 mls/hr IV BOLUS ONE Stop: 08/28/23 12:21 Last Infusion: 08/28/23 13:59 Dose: Infused Documented By: Admin: 08/28/23 11:27 Dose: 1,000 mls/hr Documented By: DAYANNA Ceftriaxone Sodium 2,000 mg/ (Sodium Chloride) 100 mls @ 200 mls/hr IV NOW ONE Stop: 08/28/23 11:40 Last Infusion: 08/28/23 13:15 Dose: Infused Documented By: Admin: 08/28/23 12:37 Dose: 200 mls/hr Documented By: KLS Sodium Chloride (Normal Saline 0.9%) 1,000 mls @ 100 mls/hr IV CONT KIM Last Admin: 08/29/23 23:28 Dose: 100 mls/hr Documented By: Infusion: 08/29/23 23:28 Dose: Infused Documented By: Admin: 08/29/23 13:47 Dose: 100 mls/hr Documented By: Infusion: 08/29/23 13:47 Dose: Infused Documented By: Admin: 08/29/23 05:05 Dose: 100 mls/hr Documented By: Infusion: 08/29/23 03:10 Dose: Infused Documented By: Admin: 08/28/23 17:10 Dose: 100 mls/hr Documented By: HD Ceftriaxone Sodium 2,000 mg/ (Sodium Chloride) 100 mls @ 200 mls/hr IV Q24H [facility] Last Infusion: 08/29/23 14:29 Dose: Infused Documented By: Admin: 08/29/23 13:29 Dose: 200 mls/hr Documented By: LEILANI Insulin Human Lispro (Insulin Lispro 100 Unit/Ml 3ml Vial) 10 unit SUBCUT TIDWM [facility] Last Admin: 08/29/23 20:27 Dose: 10 unit Documented By: Co-signed By: RUBEN Admin: 08/29/23 18:03 Dose: 20 unit Documented By: LEILANI Co-signed By: LEXII Admin: 08/29/23 17:05 Dose: 25 unit Documented By: LEILANI Co-signed By: LEXII Admin: 08/29/23 13:31 Dose: Not Given Documented By: Admin: 08/29/23 13:30 Dose: 20 unit Documented By: LEILANI Co-signed By: LEXII Naloxone HCl (Naloxone 0.4 Mg/Ml Vial) 0.2 mg IV Q2MIN PRN PRN Reason: Opiate Reversal Non-Formulary Medication (Insulin Aspart U-100 [Novolog Flexpen U-100 Insulin]) 10 unit SUBCUT TIDWM [facility] Last Admin: 08/29/23 13:48 Dose: Not Given Documented By: Admin: 08/29/23 08:31 Dose: Not Given Documented By: VALDEMAR Nf - Mycophenolate Sodium (Myfortic) [address] Tablet 180 mg PO BID [facility] Last Admin: 08/30/23 08:25 Dose: 180 mg Documented By: Admin: 08/29/23 20:28 Dose: 180 mg Documented By: Admin: 08/29/23 08:31 Dose: 180 mg Documented By: Admin: 08/28/23 21:55 Dose: Not Given Documented By: Ondansetron HCl (Ondansetron 4 Mg Odt) 4 mg SL NOW PRN PRN Reason: Nausea And Vomiting Ondansetron HCl (Ondansetron 4 Mg/2 Ml Inj) 4 mg IV NOW PRN PRN Reason: Nausea And Vomiting Ondansetron HCl (Ondansetron 4 Mg/2 Ml Inj) 4 mg IV Q8HR PRN PRN Reason: Nausea And Vomiting Oxycodone HCl (Oxycodone Ir 5 Mg Tablet) 5 mg PO Q3H PRN PRN Reason: Pain, Moderate (4-6) Potassium Chloride (Potassium Chloride 20 Meq Tab) 20 meq PO NOW ONE Stop: 08/29/23 12:12 Last Admin: 08/29/23 13:29 Dose: 20 meq Documented By: LEILANI Prednisone (Prednisone 5 Mg Tablet) 5 mg PO DAILY [facility] Last Admin: 08/30/23 08:23 Dose: 5 mg Documented By: Admin: 08/29/23 08:28 Dose: 5 mg Documented By: VALDEMAR Tamsulosin HCl (Tamsulosin 0.4 Mg Capsule) 0.8 mg PO BID [facility] Last Admin: 08/30/23 08:25 Dose: 0.8 mg Documented By: Admin: 08/29/23 20:28 Dose: 0.8 mg Documented By: Admin: 08/29/23 08:29 Dose: 0.8 mg Documented By: Admin: 08/28/23 21:59 Dose: 0.8 mg Documented By: Vital Signs Vital signs: Vital Signs - 8 hr 08/28/23 09:57 08/28/23 11:23 08/28/23 11:24 Temperature 98.3 F Pulse Rate 67 64 64 Respiratory Rate 15 14 Blood Pressure 145/67 H 129/63 Pulse Oximetry 97 97 98 Oxygen Delivery Method Room Air Room Air 08/28/23 11:30 08/28/23 11:31 08/28/23 11:31 Temperature Pulse Rate 63 63 Respiratory Rate Blood Pressure 150/59 H Pulse Oximetry 97 97 Oxygen Delivery Method 08/28/23 12:01 Temperature Pulse Rate Respiratory Rate Blood Pressure 139/63 Pulse Oximetry Oxygen Delivery Method MDM - Male Genitourinary Lab Data 08/30/23 05:59 08/29/23 05:55 Labs: Lab Results 08/28/23 08/28/23 Range/Units 10:20 11:20 WBC 19.1 H (4.5-11.0) X10^3/uL RBC 4.07 L (4.5-5.9) X10^6/uL Hgb 12.0 L (13.5-17.5) g/dL Hct 36.9 L (41-53) % MCV 90.7 (80-100) fL MCH 29.6 (26-34) PG MCHC 32.6 (30-36) % RDW 13.9 (11.6-14.8) % Plt Count 188 (150-400) X10^3/uL Neut % (Auto) 82.6 H (50-75) % Lymph % (Auto) 8.3 L (25-40) % [place] % (Auto) 8.2 (3-14) % Eos % (Auto) 0.5 L (2-4) % Baso % (Auto) 0.4 (0-2) % Neut # (Auto) 09965 H (0720-3716) /uL Lymph # (Auto) 1600 (1563-0561) /uL [place] # (Auto) 1600 H (0-900) /uL Eos # (Auto) 100 (0-450) /uL Baso # (Auto) 100 (0-100) /uL Sodium 139 (137-145) mmol/L Potassium 3.4 (3.4-5.1) mmol/L Chloride 108 H (98-107) mmol/L Carbon Dioxide 27 (22-32) mmol/L BUN 61 H (9-20) mg/dL Creatinine 2.62 H (0.66-1.25) mg/dL Estimated GFR 25 L (>60) mL/min BUN/Creatinine Ratio 23.3 H (6-22) Glucose 214 H (80-110) mg/dL Lactate 1.2 (0.7-2.1) mmol/L Calcium 9.5 (8.4-10.2) mg/dL Total Bilirubin 0.7 (0.2-1.3) mg/dL AST 17 (17-59) IU/L ALT 12 (<50) IU/L Alkaline Phosphatase 65 (38-126) U/L Total Protein 6.1 L (6.3-8.2) g/dL Albumin 3.7 (3.5-5.0) g/dL Globulin 2.4 (1.7-4.1) g/dL Albumin/Globulin Ratio 1.5 (1.0-2.8) Lipase 67 (23-300) U/L Procalcitonin 0.22 (<0.5) ng/mL Urine RBC None seen (0-5/HPF) Urine WBC 30-100/hpf H (0-5/HPF) Ur Squamous Epith Cells 0-1 /hpf (0-5/HPF) Urine Bacteria Few (2-10) H (None) Ur Culture Indicated? Specimen cultured Vol Urine Centrifuged 10ml (spun) Urine Dip Bedside Urine Glucose Negative Bedside Urine Bilirubin - Negative Bedside Urine Ketone - Negative Urine Specific [place] 1.020 Bedside Urine Occult Blood - Negative Bedside Urine pH 5.5 Bedside Urine Protein ++ 100 Bedside Urine Urobilinogen - Negative Bedside Urine Nitrite - Negative Bedside Urine Leukocytes +/- [address] scan - abdomen/pelvis: Radiologist's Impression: [address] [address] [address] Scan Report Signed Patient: Bernardo Barakat MR#: [id number] : 1950 Acct:[id number] Age/Sex: 73 / M Date of Service: 08/28/23 Loc: ED Accession Number: [id number] Procedure: CT kidney ureter bladder (KUB) Ordering Provider: Richard Watson MD PROCEDURE: CT KIDNEY URETER BLADDER (KUB) INDICATIONS: Dysuria TECHNIQUE: Axial sections were acquired from the lung bases to the pubic symphysis. Coronal and sagittal reformats were performed. For radiation dose reduction, the following was used: automated exposure control, adjustment of mA and/or kV according to patient size. COMPARISON: [facility], CT, ABDOMEN/PELVIS WITHOUT CONTRAS, 06/07/2017, 9:01. [facility], CT, KIDNEY/ URETER/BLADDER, 11/20/2016, 8:44. FINDINGS: Image quality: Excellent. Lower Chest: Linear atelectasis versus scarring at the left base. Coronary artery calcifications. Left pericardiophrenic nodularity measuring 1.2 x 1.5 cm (2/7), previously 2.9 x 2.3 cm. URINARY: [place] kidneys are surgically absent. High-density material within left renal fossa, may be postsurgical in etiology. Transplant kidney within the right pelvis. Simple appearing cysts are present. No hydronephrosis. Bladder: Decompressed, limiting evaluation. No calcified stones. ABDOMEN: Liver: No contour-deforming solid mass. Gallbladder: Surgically absent. Biliary ducts: No biliary dilation. Pancreas: No ductal dilation. Spleen: Size is within normal limits. Adrenal Glands: No adrenal nodules. Stomach and Bowel: Normal colonic caliber, without significant wall thickening. Diverticulosis without evidence of acute diverticulitis. Peritoneum: No abnormal intraperitoneal fluid. No free air. Ventral Wall: No hernia. Abdominal Nodes: No enlarged retroperitoneal or mesenteric lymph nodes. Vessels: Aorta and inferior vena cava are normal in size. Atherosclerotic vascular calcifications. PELVIS: Pelvic Organs: Unremarkable. Pelvic Nodes: Unremarkable. Miscellaneous: Small bilateral fat containing inguinal hernias are seen. Bones: Left hip arthroplasty. Decreased osseous mineralization. Degenerative changes of the spine. Grade 1 anterolisthesis of L5 on S1 with bilateral pars interarticularis defects. IMPRESSION: 1. Transplant kidney within the right pelvis, appears within normal limits. No hydronephrosis or stones. 2. [place] kidneys are surgically absent. High-density material in the left renal fossa, may be postsurgical in etiology. Attention on follow-up. 3. Left pericardiophrenic cystic structure is decreased in size. 4. Diverticulosis without evidence of acute diverticulitis. Dictated by: Vance Mejias M.D. on 08/28/2023 at 13:23 Approved by: Vance Mejias M.D. on 08/28/2023 at 13:30 [facility] Narrative Medical decision making narrative: Patient has appointment tomorrow with his [facility] renal transplant team, dr kaur, patient had transplant 3 years ago. He is on tacrolimus. History UTI. Three days ago has had decreased urine output, he does self catheterization and has had discomfort with self catheterization. Feels like another UTI. No fever chills. No back pain. Patient has history of renal cancer. After history and exam CBC CMP urinalysis bladder scan x-ray abdomen lactic acid procalcitonin blood culture CT abdomen pelvis [facility] Medical records reviewed: No recent visit for this complaint Differential considered: Includes but not limited to UTI urinary retention cystitis renal failure sepsis Lab Test results independently reviewed as above. Pertinent findings: WBC 19.1 Urinalysis WBC 30-100 Sodium 139 potassium 3.4 BUN 61 creatinine 2.6 Imaging studies independently reviewed: CT abdomen pelvis no acute finding Consultations: 2:53 p.m.. Spoke with [facility] nephrology transplant team. Dr. Jones, agrees with Radha. Admit here. Continue tacrolimus, continue mycophenolate 360 mg twice a day. Continue prednisone 5 mg daily, her pager #[phone] for any questions, patient to go home 14 day course of antibiotics when discharged 3:[address] Stephens hospitalist, who will admit patient Treatments: Rocephin normal saline Re-evaluations: 3:00 p.m.. Updated patient treatment plan and agrees for admission Discussion: Appropriate for admission for UTI IV antibiotics after discussing with Nephrology team Rocephin has been started. Diagnosis: Acute UTI Discharge Plan Departure Patient Disposition: Admitted as Observation Clinical Impression: UTI (urinary tract infection) Qualifiers: Urinary tract infection type: site unspecified Hematuria presence: with hematuria Qualified Code(s): N39.0 - Urinary tract infection, site not specified Admit Date/Time: 08/28/23 15:07 Admit Provider: Deuce Stephens
--- NOTE | 2023-08-28 11:35 | PC.NURSE ---
Pt is renal transplant (2020). Pt self caths. Has noted decrease in urine output over past few days. Noted increase in his creatinine. Pt states he feels constipated and has difficulty moving bowels. Denies abd pain/nausea/vomiting/fever/chills.
--- NOTE | 2023-08-28 11:39 | DI.CT.S_ITS ---
PROCEDURE: CT KIDNEY URETER BLADDER (KUB) INDICATIONS: Dysuria TECHNIQUE: Axial sections were acquired from the lung bases to the pubic symphysis. Coronal and sagittal reformats were performed. For radiation dose reduction, the following was used: automated exposure control, adjustment of mA and/or kV according to patient size. COMPARISON: [facility], CT, ABDOMEN/PELVIS WITHOUT CONTRAS, 06/07/2017, 9:01. [facility], CT, KIDNEY/ URETER/BLADDER, 11/20/2016, 8:44. FINDINGS: Image quality: Excellent. Lower Chest: Linear atelectasis versus scarring at the left base. Coronary artery calcifications. Left pericardiophrenic nodularity measuring 1.2 x 1.5 cm (2/7), previously 2.9 x 2.3 cm. URINARY: [place] kidneys are surgically absent. High-density material within left renal fossa, may be postsurgical in etiology. Transplant kidney within the right pelvis. Simple appearing cysts are present. No hydronephrosis. Bladder: Decompressed, limiting evaluation. No calcified stones. ABDOMEN: Liver: No contour-deforming solid mass. Gallbladder: Surgically absent. Biliary ducts: No biliary dilation. Pancreas: No ductal dilation. Spleen: Size is within normal limits. Adrenal Glands: No adrenal nodules. Stomach and Bowel: Normal colonic caliber, without significant wall thickening. Diverticulosis without evidence of acute diverticulitis. Peritoneum: No abnormal intraperitoneal fluid. No free air. Ventral Wall: No hernia. Abdominal Nodes: No enlarged retroperitoneal or mesenteric lymph nodes. Vessels: Aorta and inferior vena cava are normal in size. Atherosclerotic vascular calcifications. PELVIS: Pelvic Organs: Unremarkable. Pelvic Nodes: Unremarkable. Miscellaneous: Small bilateral fat containing inguinal hernias are seen. Bones: Left hip arthroplasty. Decreased osseous mineralization. Degenerative changes of the spine. Grade 1 anterolisthesis of L5 on S1 with bilateral pars interarticularis defects. IMPRESSION: 1. Transplant kidney within the right pelvis, appears within normal limits. No hydronephrosis or stones. 2. [place] kidneys are surgically absent. High-density material in the left renal fossa, may be postsurgical in etiology. Attention on follow-up. 3. Left pericardiophrenic cystic structure is decreased in size. 4. Diverticulosis without evidence of acute diverticulitis. Dictated by: Vance Mejias M.D. on 08/28/2023 at 13:23 Approved by: Vance Mejias M.D. on 08/28/2023 at 13:30
[2023-08-28 11:41] LABS: Alanine Aminotransferase 12 IU/L (<50); Albumin 3.7 g/dL (3.5-5.0); Albumin Globulin Ratio 1.5 (1.0-2.8); Alkaline Phosphatase 65 U/L (38-126); Aspartate Aminotransferase 17 IU/L (17-59); BUN Creatinine Ratio 23.3 (6-22); Bilirubin Total 0.7 mg/dL (0.2-1.3); Blood Urea Nitrogen 61 mg/dL (9-20); Calcium 9.5 mg/dL (8.4-10.2); Carbon Dioxide 27 mmol/L (22-32); Chloride 108 mmol/L (98-107); Estimated Glomerular Filt Rate 25 mL/min (>60); Globulin 2.4 g/dL (1.7-4.1); Glucose 214 mg/dL (80-110); HEMOLYSIS 31 (0-50); Lipase 67 U/L (23-300); Potassium 3.4 mmol/L (3.4-5.1); Sodium 139 mmol/L (137-145); Total Protein 6.1 g/dL (6.3-8.2)
[2023-08-28 12:06] LABS: Lactate (Lactic Acid) 1.2 mmol/L (0.7-2.1)
[2023-08-28 12:23] LABS: Procalcitonin 0.22 ng/mL (<0.5)
[2023-08-28] MEDS: cefTRIAXone 2,000 MG in SODIUM CHLORIDE 0.9% 100 ML 200 MG IV (12:37)
--- NOTE | 2023-08-28 12:44 | PC.NURSE ---
200 ml out w/ pt self cath.
--- NOTE | 2023-08-28 15:36 | PM.HP.1 ---
History of Present Illness History of Present Illness Date Patient Seen: 08/28/23 Time Patient Seen: 17:58 Chief complaint: uti Narrative: The patient is a 73-year-old male with history of renal transplant who presents with 3 days of increased urine output. He has history of renal transplant 3 years ago and is on chronic immunosuppressants. He does self catheterization as well and is having more discomfort with the self catheterization. He denies fevers, chills or flank pain. The emergency physician did talk to the pharmacometrician who recommended IV antibiotics for least 24 hours and 14 days total course of antibiotics. Urine was obtained in the emergency department with studies pending. The patient has a history of a right radical nephrectomy in July of 2012 for renal cell carcinoma. 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 This was followed with hemodialysis using a left forearm fistula leading up to kidney transplant in 2019. The patient has a dense bladder neck contracture which was noted at that time and a history of failed TUMT many years ago. He is followed by urology following a presentation with urinary retention resulting in TURP in 2014. He lives alone in [place]. He self catheterization 4 to 6 times a day. He has had to self cath more frequently, up to 10 times a day for 2 days. He has had urethral discomfort with cathing as well as a feeling of malaise. He also has rhinorrhea which he attributes to allergies. He denies any hematuria. He also denies any fevers or pain in the right groin where his transplant kidney is. He has some anorexia, but denies any nausea or vomiting. [facility] Medical History Erectile dysfunction associated with vasculopathy Erectile dysfunction associated with type 2 diabetes mellitus History of UTI COVID-19 Elevated PSA History of renal cell cancer Urinary retention Flaccid bladder Gout UTI (urinary tract infection) Arthritis Restless legs syndrome (RLS) Type 2 diabetes mellitus (~2000) End-stage renal disease (ESRD) Hyperlipidemia associated with type 2 diabetes mellitus Chronic iron deficiency anemia Gouty arthropathy Asthma Insomnia, persistent Obstructive sleep apnea of adult Hypersomnia Surgical History Kidney transplant status, cadaveric Status post left hip replacement (~2018) Social History marital status: number of children: 1 household members: children education level: college occupational status: previously employed Previous occupational history: [employer] Smoking Status: Never smoker alcohol intake: never substance use type: does not use Meds Home Medications and Allergies Home Medications Medication Instructions Recorded Confirmed Type insulin aspart U-100 100 unit/mL 10 unit (0.1 mL) SUBCUT TID 05/27/19 08/28/23 Rx (3 mL) subcutaneous pen (Novolog Sliding scale #15 mL FlexPen U-100 Insulin aspart) allopurinol 100 mg tablet 50 mg PO DAILY 01/25/20 08/28/23 History fenofibrate 40 mg tablet 48 mg PO DAILY 01/25/20 08/28/23 History mycophenolate sodium 180 mg 180 mg PO BID 01/25/20 08/28/23 History tablet,delayed release (Myfortic) prednisone 5 mg tablet 5 mg PO DAILY 01/25/20 08/28/23 History tamsulosin 0.4 mg capsule 0.8 mg PO BID 01/28/20 08/28/23 History carvedilol 12.5 mg tablet 12.5 mg PO BEDTIME 07/20/20 08/28/23 History AirCurve 10 VAuto #1 ea 01/10/21 08/28/23 History atorvastatin 40 mg PO QPM 11/22/22 08/28/23 History furosemide 40 mg tablet 40 mg PO TID 11/22/22 08/28/23 History sildenafil 50 mg tablet 50 mg PO DAILY 08/28/23 08/28/23 History Allergies Allergy/AdvReac Type Severity Reaction Status Date / Time No Known Drug Allergies Allergy Verified 08/28/23 10:05 Review of Systems Review of Systems Narrative: All else reviewed and otherwise unremarkable except as noted in the history and physical. Exam Vital Signs (past 8 hours): - 08/28/23 09:57 08/28/23 11:23 08/28/23 11:24 Temperature 98.3 F Pulse Rate 67 64 64 Respiratory Rate 15 14 Blood Pressure 145/67 H 129/63 Pulse Oximetry 97 97 98 Oxygen Delivery Method Room Air Room Air 08/28/23 11:30 08/28/23 11:31 08/28/23 11:31 Temperature Pulse Rate 63 63 Respiratory Rate Blood Pressure 150/59 H Pulse Oximetry 97 97 Oxygen Delivery Method 08/28/23 12:01 Temperature Pulse Rate Respiratory Rate Blood Pressure 139/63 Pulse Oximetry Oxygen Delivery Method Oxygen Delivery Method Room Air Narrative Exam Narrative: NAD, alert and oriented, fluent speech, calm. Normocephalic skull, EOMI, anicteric sclera, symmetric pupils. Oropharynx unremarkable, no droop. Neck supple, midline trachea, no adenopathy. Lungs clear, normal rate and effort. Heart regular, no murmur gallop or rub. Abdomen is soft, non distended and non tender. Extremities are free of edema. Skin is free of rash or lesions. Joints are not swollen or deformed. Judgment appears to be normal. Objective Imaging CT scan - abdomen: Radiologist's impression: 1. Transplant kidney within the right pelvis, appears within normal limits. No hydronephrosis or stones. 2. [place] kidneys are surgically absent. High-density material in the left renal fossa, may be postsurgical in etiology. Attention on follow-up. 3. Left pericardiophrenic cystic structure is decreased in size. 4. Diverticulosis without evidence of acute diverticulitis. Labs 08/28/23 11:20 08/28/23 11:20 Labs: Laboratory Results - last 24 hr 08/28/23 08/28/23 10:20 11:20 WBC 19.1 H RBC 4.07 L Hgb 12.0 L Hct 36.9 L MCV 90.7 MCH 29.6 MCHC 32.6 RDW 13.9 Plt Count 188 Neut % (Auto) 82.6 H Lymph % (Auto) 8.3 L [place] % (Auto) 8.2 Eos % (Auto) 0.5 L Baso % (Auto) 0.4 Neut # (Auto) 93893 H Lymph # (Auto) 1600 [place] # (Auto) 1600 H Eos # (Auto) 100 Baso # (Auto) 100 Sodium 139 Potassium 3.4 Chloride 108 H Carbon Dioxide 27 BUN 61 H Creatinine 2.62 H Estimated GFR 25 L BUN/Creatinine Ratio 23.3 H Glucose 214 H Lactate 1.2 Calcium 9.5 Total Bilirubin 0.7 AST 17 ALT 12 Alkaline Phosphatase 65 Total Protein 6.1 L Albumin 3.7 Globulin 2.4 Albumin/Globulin Ratio 1.5 Lipase 67 Procalcitonin 0.22 Urine RBC None seen Urine WBC 30-100/hpf H Ur Squamous Epith Cells 0-1 /hpf Urine Bacteria Few (2-10) H Ur Culture Indicated? Specimen cultured Vol Urine Centrifuged 10ml (spun) Assessment & Plan Assessment & Plan narrative: 1. Urinary tract infection associated with self catheterization which is chronic, present on admission and active. 2. Renal transplant on chronic immunosuppressants, present on admission and stable. 3. History of flaccid neuropathic bladder, present on admission and active. 4. DM 2, insulin dependent. 5. Recurrent UTI, present on admission and active. 6. Asthma, present on admission and stable. 7. Hyperlipidemia, present on admission and stable. 8. History of iron-deficiency anemia, present on admission and stable. Plan: -IV antibiotics, ceftriaxone 2 g IV Q 24 hours. Monitor response to therapy. -continue all immunosuppressants as scheduled. This includes prednisone, tacrolimus, and mycophenolate. -transplant physician request 14 total days of antibiotics. -monitor glucose with insulin sliding scale, nutritional, as well as usual long-acting. Full resuscitation Estimated date of discharge is August 28 pending improvement of symptoms, improvement of white count, inability to taking oral fluids. Time Spent With Patient Time with patient: 30 to 49 minutes with 50% spent counseling/coordinating care Quality MIPS - Admit I confirm the patient?s Advance Care Plan is present, Code status is documented, Surrogate decision maker is in patient?s record [If Yes, STOP here]: Yes MIPS - Meds 'Current medications' to include all prescriptions, [id number] products, herbals, cannabis/cannabidiol products, and vitamin/mineral/dietary (nutritional) supplements. I have utilized all available resources to obtain, update, or review the patient?s current medications. [If Yes, STOP here]: Yes
[2023-08-28] MEDS: SODIUM CHLORIDE 0.9% 1,000 ML 100 ML IV (17:10)
--- NOTE | 2023-08-28 19:00 | PC.NURSE ---
Pt to room 207-able to transfer self to bed. Alert and Oriented x 3. IV infusing as ordered. Pt denies falls. Pt refused scd's. Pt oriented to room, call light, bed controls, and tv controls. Pt agrees to call for assistance as needed. Pt self caths. and did so upon arrival to his room. Pt spoke with Dr. Stephens about his glucose monitoring device and was given permission to use it.
[2023-08-28] MEDS: HEPARIN 5,000 UNIT/ML VIAL 5000 UNIT SUBCUT (21:59)
[2023-08-28] MEDS: TAMSULOSIN 0.4 MG CAPSULE 0.8 MG PO (21:59)
[2023-08-29] MEDS: SODIUM CHLORIDE 0.9% 1,000 ML 100 ML IV ×3 (05:05→23:28)
[2023-08-29 06:10] LABS: Add Manual Diff / Slide Review NO; Basophils Absolute Auto 0 /uL (0-100); Basophils Percent Auto 0.1 % (0-2); Eosinophils Absolute Auto 100 /uL (0-450); Eosinophils Percent Auto 0.6 % (2-4); Hematocrit 33.4 % (41-53); Hemoglobin 10.9 g/dL (13.5-17.5); Lymphocytes Absolute Auto 1600 /uL (1100-4500); Lymphocytes Percent Auto 9.8 % (25-40); Mean Corpuscular HGB Conc 32.7 % (30-36); Mean Corpuscular Hemoglobin 29.7 PG (26-34); Mean Corpuscular Volume 90.8 fL (80-100); Monocytes Absolute Auto 1400 /uL (0-900); Monocytes Percent Auto 8.8 % (3-14); Neutrophils Absolute Auto 13200 /uL (1500-7000); Neutrophils Percent Auto 80.7 % (50-75); Platelet Count 177 X10^3/uL (150-400); Red Blood Cell Count 3.68 X10^6/uL (4.5-5.9); Red Cell Distribution Width 14.2 % (11.6-14.8); White Blood Cell Count 16.3 X10^3/uL (4.5-11.0)
[2023-08-29 06:21] LABS: BUN Creatinine Ratio 18.7 (6-22); Blood Urea Nitrogen 47 mg/dL (9-20); Carbon Dioxide 23 mmol/L (22-32); Chloride 111 mmol/L (98-107); Estimated Glomerular Filt Rate 26 mL/min (>60); Glucose 225 mg/dL (80-110); HEMOLYSIS < 15 (0-50); Potassium 3.5 mmol/L (3.4-5.1); Sodium 138 mmol/L (137-145)
[2023-08-29 08:00] VITALS: BP 135/68; PULSE 67; RESP 16; TEMP 36.6; O2SAT 98
--- NOTE | 2023-08-29 08:24 | PM.PN.1 ---
Subjective Subjective Interval history: Admitted for UTI, renal transplant, hypotonic bladder with self catheterization at home. Chronic kidney disease stage 4. Immunosuppressive therapy for transplant. He is still having dysuria and frequent urination. He denies any fevers, chills, or pain over the renal transplant. He is constipated, no nausea or vomiting. Exam Vital Signs (past 8 hours): Oxygen Delivery Method Room Air Oxygen Flow Rate 0 Narrative Exam Narrative: NAD, alert and oriented. Fluent speech. Lungs are clear, normal rate and effort. Heart is regular, no murmur gallop or rub. Abdomen is soft, non distended. Extremities are free of edema. Objective Labs 08/29/23 05:55 08/29/23 05:55 Labs: Laboratory Results - last 24 hr 08/28/23 08/28/23 08/29/23 10:20 11:20 05:55 WBC 19.1 H 16.3 H RBC 4.07 L 3.68 L Hgb 12.0 L 10.9 L Hct 36.9 L 33.4 L MCV 90.7 90.8 MCH 29.6 29.7 MCHC 32.6 32.7 RDW 13.9 14.2 Plt Count 188 177 Neut % (Auto) 82.6 H 80.7 H Lymph % (Auto) 8.3 L 9.8 L [place] % (Auto) 8.2 8.8 Eos % (Auto) 0.5 L 0.6 L Baso % (Auto) 0.4 0.1 Neut # (Auto) 46848 H 13469 H Lymph # (Auto) 1600 1600 [place] # (Auto) 1600 H 1400 H Eos # (Auto) 100 100 Baso # (Auto) 100 0 Sodium 139 138 Potassium 3.4 3.5 Chloride 108 H 111 H Carbon Dioxide 27 23 BUN 61 H 47 H Creatinine 2.62 H 2.51 H Estimated GFR 25 L 26 L BUN/Creatinine Ratio 23.3 H 18.7 Glucose 214 H 225 H Lactate 1.2 Calcium 9.5 9.0 Total Bilirubin 0.7 AST 17 ALT 12 Alkaline Phosphatase 65 Total Protein 6.1 L Albumin 3.7 Globulin 2.4 Albumin/Globulin Ratio 1.5 Lipase 67 Procalcitonin 0.22 Urine RBC None seen Urine WBC 30-100/hpf H Ur Squamous Epith Cells 0-1 /hpf Urine Bacteria Few (2-10) H Ur Culture Indicated? Specimen cultured Vol Urine Centrifuged 10ml (spun) [facility] Medical History Erectile dysfunction associated with vasculopathy Erectile dysfunction associated with type 2 diabetes mellitus History of UTI COVID-19 Elevated PSA History of renal cell cancer Urinary retention Flaccid bladder Gout UTI (urinary tract infection) Arthritis Restless legs syndrome (RLS) Type 2 diabetes mellitus (~2000) End-stage renal disease (ESRD) Hyperlipidemia associated with type 2 diabetes mellitus Chronic iron deficiency anemia Gouty arthropathy Asthma Insomnia, persistent Obstructive sleep apnea of adult Hypersomnia Surgical History Kidney transplant status, cadaveric Status post left hip replacement (~2018) Social History marital status: number of children: 1 household members: children education level: college occupational status: previously employed Previous occupational history: [employer] Smoking Status: Never smoker alcohol intake: never substance use type: does not use Assessment & Plan Assessment & Plan narrative: 1. Urinary tract infection associated with self catheterization which is chronic, present on admission and active. Current urine culture is negative, blood cultures pending. 2. Renal transplant on chronic immunosuppressants, present on admission and stable. 3. History of flaccid neuropathic bladder, present on admission and active. 4. DM 2, insulin dependent. 5. Recurrent UTI, present on admission and active. 6. Asthma, present on admission and stable. 7. Hyperlipidemia, present on admission and stable. 8. History of iron-deficiency anemia, present on admission and stable. Plan: -IV antibiotics, ceftriaxone 2 g IV Q 24 hours. Monitor response to therapy. We will continue hospital treatment for another 24 hours given his high risk for adverse outcomes with his history of renal transplant and chronic immunosuppression. -continue all immunosuppressants as scheduled. This includes prednisone, tacrolimus, and mycophenolate. -transplant physician request 14 total days of antibiotics. -monitor glucose with insulin sliding scale, nutritional, as well as usual long-acting. -Dulcolax suppository for constipation. -he was also followed by Dr. Farris, nephrologists in [place]. -[facility] senior maintenance technician name and phone numbers are in the emergency department note. Full resuscitation Estimated date of discharge is August 29 pending improvement of symptoms, improvement of white count, inability to taking oral fluids. Quality VTE Deep Vein Thrombosis/Pulmonary Embolism Present on Admission: No
[2023-08-29] MEDS: FUROSEMIDE 40 MG TABLET PO ×3 (08:27→20:29)
[2023-08-29] MEDS: DOCUSATE 100 MG CAPSULE PO ×2 (08:27→20:29)
[2023-08-29] MEDS: predniSONE 5 MG TABLET PO (08:28)
[2023-08-29] MEDS: TAMSULOSIN 0.4 MG CAPSULE 0.8 MG PO ×2 (08:29→20:28)
[2023-08-29] MEDS: MYCOPHENOLATE SODIUM 180 MG 180 EACH PO ×2 (08:31→20:28)
--- NOTE | 2023-08-29 09:37 | PC.NURSE ---
Addendum entered by Cristy Crowell R.N. 08/29/23 10:14: Pharmacist Robbi, retrieved all home meds from room for Identification. Original Note: Day shift note: Patient has anti rejection medications in room. Policy explained regarding the process of sending medication for ID by Pharmacy. Patient states he fears not getting medication back at discharge. Robbi in Pharmacy notified regarding situation, will talk to the patient. Will continue to restore trust.
[2023-08-29] MEDS: cefTRIAXone 2,000 MG in SODIUM CHLORIDE 0.9% 100 ML 200 MG IV (13:29)
[2023-08-29] MEDS: POTASSIUM CHLORIDE 20 MEQ TAB PO (13:29)
[2023-08-29] MEDS: INSULIN LISPRO 100 UNIT/ML 3ML VIAL 10 UNIT SUBCUT ×4 (13:30→20:27)
--- NOTE | 2023-08-29 13:35 | PC.NURSE ---
PATIENT REQUEST FOR 20 UNITS INSULIN FOR 275 BLOOD SUGAR, MADE AWARE AND OK FOR THE 20 UNITS TO BE GIVEN,STATES IF THIS IS WHAT PATIENT GIVES SELF AT HOME HE IS OK WITH IT
--- NOTE | 2023-08-29 14:10 | CM.DANOTE ---
Initial DCP Assessment Visit Note Reviewed EMR and team rounds for pt's medical status and updates. Met with pt at bedside to introduce self and role, pt was found sitting on the edge of the bed, appearing tired and weak, however was able to express his needs and preferences for discharge once he's medically stable. He lives in his own home independently here in [place]. Once he's medically stable, he has a friend that will transport him back home, which will likely be tomorrow, with oral antibiotics. Payor: Medicare PCP: Lucie Pelayo Pt is a 73 year-old M with a PMH of 3-years out post-kidney transplant done at . He presented to the ED with concerns of increasing difficulty with self-cathing, which he does normally approx. 6-times per day, and has had returning UTI symptoms that are now requiring up to 10x day self-cathing. He is on long-term immunosuppressants, is regularly in contact with his transplant team, who encouraged him to come to the ED for possible UTI and need for IV antibiotics. Urine did come back infected, he was started on the IV ABO's and brought upstairs to an OBS bed for further eval/tx. He will likely d/c home tomorrow. DCP will continue to follow and assist with any evolving d/c needs during his admission. Discharge Planning/Care Management Advanced directive, confirm from FAMILY Start: 08/28/23 17:56 Freq: Q24H Status: Active Protocol: Document 08/28/23 17:56 CM (Rec: 08/28/23 18:37 CM [id number]) Advance Directive, confirm on record Time 18:37 Person contacted Pt Copy received No CM Discharge Assessment Start: 08/29/23 14:06 Freq: Status: Active Protocol: Document 08/29/23 14:07 DPL (Rec: 08/29/23 14:10 DPL [id number]) Discharge Planning Assessment Assigned Scrap Collector CANELO Thayer Advance Directives? Yes Advance Directives on File No History Provided By Patient,Medical Record Has Patient been admitted in last 30 No days? Prior Living Arrangements House Type of transporation used prior to Drives own vehicle admit Independent with ADL's Yes Is patient alert and oriented? Yes Caregiver for Another No Comment OP Nephrology Comment No anticipated home d/c needs identified at this time. Barriers to Discharge No Discharge Plan Home Transportation Arrangement Friend Referrals Initiated None needed Whiteboard Updated in Patient Room with Yes name and ext. # of Scrap Collector Review Status In Process Please Provide Date Initial DC 08/29/23 Assessment Was Performed
[2023-08-29 20:28] VITALS: BP 147/68; PULSE 62
[2023-08-29] MEDS: ATORVASTATIN 20 MG TABLET 40 MG PO (20:28)
[2023-08-29] MEDS: carvediloL 12.5 MG TABLET PO (20:28)
[2023-08-29] MEDS: HEPARIN 5,000 UNIT/ML VIAL 5000 UNIT SUBCUT (20:30)
[2023-08-29 20:33] VITALS: BP 147/68; PULSE 62; RESP 16; TEMP 36.4; O2SAT 98
[2023-08-30 06:23] LABS: Add Manual Diff / Slide Review NO; Basophils Absolute Auto 0 /uL (0-100); Basophils Percent Auto 0.1 % (0-2); Eosinophils Absolute Auto 200 /uL (0-450); Eosinophils Percent Auto 1.4 % (2-4); Hematocrit 33.6 % (41-53); Hemoglobin 11.2 g/dL (13.5-17.5); Lymphocytes Absolute Auto 1900 /uL (1100-4500); Lymphocytes Percent Auto 14.5 % (25-40); Mean Corpuscular HGB Conc 33.3 % (30-36); Mean Corpuscular Hemoglobin 30.1 PG (26-34); Mean Corpuscular Volume 90.4 fL (80-100); Monocytes Absolute Auto 900 /uL (0-900); Monocytes Percent Auto 7.2 % (3-14); Neutrophils Absolute Auto 9800 /uL (1500-7000); Neutrophils Percent Auto 76.8 % (50-75); Platelet Count 180 X10^3/uL (150-400); Red Blood Cell Count 3.72 X10^6/uL (4.5-5.9); Red Cell Distribution Width 13.8 % (11.6-14.8); White Blood Cell Count 12.8 X10^3/uL (4.5-11.0)
[2023-08-30 08:00] VITALS: BP 151/73; PULSE 56; RESP 16; TEMP 36.1; O2SAT 99
[2023-08-30] MEDS: allopurinoL 100 MG TABLET 50 MG PO (08:23)
[2023-08-30] MEDS: predniSONE 5 MG TABLET PO (08:23)
[2023-08-30] MEDS: DOCUSATE 100 MG CAPSULE PO (08:23)
[2023-08-30] MEDS: FUROSEMIDE 40 MG TABLET PO (08:23)
[2023-08-30] MEDS: MYCOPHENOLATE SODIUM 180 MG 180 EACH PO (08:25)
[2023-08-30] MEDS: TAMSULOSIN 0.4 MG CAPSULE 0.8 MG PO (08:25)
--- NOTE | 2023-08-30 09:13 | CM.DPC ---
DCP Cont. Reviewed EMR and team rounds for status updates. Pt has been medically cleared for discharge, he has a friend that will transport him home. No further DCP needs identified at this time.
--- NOTE | 2023-08-30 10:28 | P.DS_ITS ---
History of Present Illness History of Present Illness Date Patient Seen: 08/30/23 Time Patient Seen: 07:40 Chief complaint: uti Narrative: Date Patient Seen: 08/28/23 Time Patient Seen: 17:58 Chief complaint: uti Narrative: The patient is a 73-year-old male with history of renal transplant who presents with 3 days of increased urine output. He has history of renal transplant 3 years ago and is on chronic immunosuppressants. He does self catheterization as well and is having more discomfort with the self catheterization. He denies fevers, chills or flank pain. The emergency physician did talk to the tire molder who recommended IV antibiotics for least 24 hours and 14 days total course of antibiotics. Urine was obtained in the emergency department with studies pending. The patient has a history of a right radical nephrectomy in July of 2012 for renal cell carcinoma. 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 This was followed with hemodialysis using a left forearm fistula leading up to kidney transplant in 2019. The patient has a dense bladder neck contracture which was noted at that time and a history of failed TUMT many years ago. He is followed by urology following a presentation with urinary retention resulting in TURP in 2014. He lives alone in [place]. He self catheterization 4 to 6 times a day. He has had to self cath more frequently, up to 10 times a day for 2 days. He has had urethral discomfort with cathing as well as a feeling of malaise. He also has rhinorrhea which he attributes to allergies. He denies any hematuria. He also denies any fevers or pain in the right groin where his transplant kidney is. He has some anorexia, but denies any nausea or vomiting. Discharge Providers Provider Date of admission: 08/28/23 15:07 Discharge Date: 08/30/23 Primary care physician: Lucie Pelayo MD Discharge provider: Marcello Storey MD Summary Hospital Course Discharge Diagnosis: 1. Urinary tract infection associated with self catheterization which is chronic, present on admission and active. Current urine culture is negative, blood cultures negative at discharge. 2. Renal transplant on chronic immunosuppressants, present on admission and stable. 3. History of flaccid neuropathic bladder, present on admission and active. 4. DM 2, insulin dependent. 5. Recurrent UTI, present on admission and active. 6. Asthma, present on admission and stable. 7. Hyperlipidemia, present on admission and stable. 8. History of iron-deficiency anemia, present on admission and stable. Hospital Course: The patient was admitted and administered IV antibiotics, ceftriaxone 2 g IV Q 24 hours and admit as an inpatient due to his high risk for adverse outcomes with his history of renal transplant and chronic immunosuppression. He was continued on all immunosuppressants as scheduled including prednisone, tacrolimus, and mycophenolate. His transplant physician request 14 total days of antibiotics. He remained clinically stable throughout his hospitalization, and was able to get up, ambulate, and walk without problems. He is mildly constipated and wished to have a Dulcolax suppository following discharge home. He was also followed by Dr. Farris, nephrologists in [place]. No other issues arose. Exam Vital Signs (past 8 hours): - 08/30/23 08:00 Temperature 97.0 F L Pulse Rate 56 L Respiratory Rate 16 Blood Pressure 151/73 H Pulse Oximetry 99 Oxygen Delivery Method Room Air Oxygen Flow Rate 0 Narrative Exam Narrative: GENERAL: This is a well-nourished, well-developed patient, in no apparent distress. HEAD: Atraumatic. Normocephalic. No temporal or scalp tenderness. EYES: Pupils equal round and reactive. Extraocular motions intact. No scleral icterus. No injection or drainage. ENT: Mucous membranes pink and moist. NECK: Trachea midline. No JVD, bruits or lymphadenopathy. Supple, nontender, no meningeal signs. CARDIOVASCULAR: Regular rate and rhythm without murmurs, gallops, or rubs. RESPIRATORY: Clear to auscultation. GASTROINTESTINAL: Abdomen soft, non-tender, nondistended. EXTREMITIES: No clubbing, cyanosis, or edema. BACK: Nontender without deformity or crepitance. No flank tenderness. NEUROLOGIC: Alert, oriented, speech fluent, full upper and lower motor strength, no focal deficits evident. DERMATOLOGIC: No rashes or skin lesions. Objective Labs 08/30/23 05:59 08/29/23 05:55 Labs: Laboratory Results - last 24 hr 08/30/23 05:59 WBC 12.8 H RBC 3.72 L Hgb 11.2 L Hct 33.6 L MCV 90.4 MCH 30.1 MCHC 33.3 RDW 13.8 Plt Count 180 Neut % (Auto) 76.8 H Lymph % (Auto) 14.5 L [place] % (Auto) 7.2 Eos % (Auto) 1.4 L Baso % (Auto) 0.1 Neut # (Auto) 9800 H Lymph # (Auto) 1900 [place] # (Auto) 900 Eos # (Auto) 200 Baso # (Auto) 0 PFSH Medical History Erectile dysfunction associated with vasculopathy Erectile dysfunction associated with type 2 diabetes mellitus History of UTI COVID-19 Elevated PSA History of renal cell cancer Urinary retention Flaccid bladder Gout UTI (urinary tract infection) Arthritis Restless legs syndrome (RLS) Type 2 diabetes mellitus (~2000) End-stage renal disease (ESRD) Hyperlipidemia associated with type 2 diabetes mellitus Chronic iron deficiency anemia Gouty arthropathy Asthma Insomnia, persistent Obstructive sleep apnea of adult Hypersomnia Surgical History Kidney transplant status, cadaveric Status post left hip replacement (~2018) Social History marital status: number of children: 1 household members: children education level: college occupational status: previously employed Previous occupational history: [employer] Smoking Status: Never smoker alcohol intake: never substance use type: does not use Discharge Plan Discharge Plan Patient Disposition: Home Provider Discharge Comment: Discharge home with friend; followup with Drs. Mckinney and Yair in 1-2 weeks Discharge orders & Medications Prescriptions: New cephalexin 500 mg capsule 500 mg PO TID Qty: 42 0RF bisacodyl [Dulcolax (bisacodyl)] 10 mg suppository 10 mg UT DAILY PRN (Reason: constipation) Qty: 12 0RF Continued allopurinol 100 mg tablet 50 mg PO DAILY fenofibrate 40 mg tablet 48 mg PO DAILY prednisone 5 mg tablet 5 mg PO DAILY mycophenolate sodium [Myfortic] 180 mg tablet,delayed release (DR/EC) 180 mg PO BID furosemide 40 mg tablet 40 mg PO TID Patient Comments: TAKE 3 TABLETS BY MOUTH IN THE MORNING AND 3 TABLETS BEFORE BEDTIME. sildenafil 50 mg tablet 50 mg PO DAILY carvedilol 12.5 mg tablet 12.5 mg PO BEDTIME Rx Instructions: must administer with a meal/food. Takes 1 25mg tab in am and 2 12.5mg at bedtime Novolog FlexPen U-100 Insulin 100 unit/mL (3 mL) insulin pen 10 unit SUBCUT TID Qty: 15 0RF tamsulosin 0.4 mg capsule 0.8 mg PO BID atorvastatin 40 mg PO QPM No Action (DME) AirCurve 10 VAuto See Rx Instructions Qty: 1 Dose Instruction: As directed Rx Instructions: Pressure: EPAP 6 IPAP 12 DME: [facility] Follow up/Referrals: Lucie Pelayo MD [Primary Care Provider] - Diet/Activity/Treatments Diet: Diet as Tolerated, Carb-consistent/Diabetic and Low-sodium Skin/Wound/Dressing Care Report to your healthcare provider any signs of infection, such as:: chills, fever, night sweats, increased pain and unusual drainage Visit Report/Discharge Packet Instructions: DI for Urinary Tract Infection (UTI) Stand Alone Forms: Patient Portal/API, Stroke Signs & Symptoms Discharge Data Primary Care Provider: Lucie Pelayo Attending Provider: Deuce Stephens Admit Date/Time: 08/28/23 15:07 Quality VTE Deep Vein Thrombosis/Pulmonary Embolism Present on Admission: No IH PROFEE Charge Codes Discharge inpatient/observation: [id number]
== END 2023-08-30 10:00 | disposition home or self-care (01) ==
LOC: ED 14:55 → AC 15:08
PROVIDERS: Internal Medicine Gastroenterology; Admitting Provider Hospitalist; Emergency Provider Emergency Medicine; PCP Internal Medicine; Referring Provider Emergency Medicine; Visit Provider Hospitalist
DX: N39.0 Urinary tract infection, site not specified (principal); E11.22 Type 2 diabetes mellitus with diabetic chronic kidney disease; N18.4 Chronic kidney disease, stage 4 (severe); J45.909 Unspecified asthma, uncomplicated; N31.2 Flaccid neuropathic bladder, not elsewhere classified; Z79.4 Long term (current) use of insulin; Z94.0 Kidney transplant status; Z96.0 Presence of urogenital implants
CPT/HCPCS: 36415; 51798; 74022; 74176; 80048; 80053; 81003; 81015; 82962; 83605; 83690; 84145; 85025; 87040; 87086; 96361; 96365; 96366; 96372; 99285; G0378; J0696; J1644; J1815

== ENCOUNTER → 2023-09-24 07:49 | Outpatient (CLI) | payer MEDICARE, OTHER, SELFPAY ==
[2023-08-28 17:00] VITALS: BMI 34.0
[2023-09-24 10:02] LABS: Add Manual Diff / Slide Review NO; Basophils Absolute Auto 0 /uL (0-100); Basophils Percent Auto 0.2 % (0-2); Eosinophils Absolute Auto 300 /uL (0-450); Hematocrit 37.1 % (41-53); Hemoglobin 12.2 g/dL (13.5-17.5); Lymphocytes Absolute Auto 1400 /uL (1100-4500); Lymphocytes Percent Auto 14.8 % (25-40); Mean Corpuscular Hemoglobin 30.1 PG (26-34); Monocytes Absolute Auto 800 /uL (0-900); Monocytes Percent Auto 8.7 % (3-14); Neutrophils Absolute Auto 7100 /uL (1500-7000); Neutrophils Percent Auto 73.3 % (50-75); Platelet Count 222 X10^3/uL (150-400); Red Blood Cell Count 4.07 X10^6/uL (4.5-5.9); Red Cell Distribution Width 14.2 % (11.6-14.8); White Blood Cell Count 9.7 X10^3/uL (4.5-11.0)
[2023-09-24 10:27] LABS: Appearance Urine UA SL CLOUDY; Bilirubin Urine UA NEGATIVE (NEGATIVE); Color Urine UA YELLOW; Glucose Urine UA NEGATIVE (Negative); Ketones Urine UA NEGATIVE (NEGATIVE); Leukocyte Esterase Urine UA 1+ (NEGATIVE); Nitrite Urine UA NEGATIVE (Negative); Occult Blood Urine UA 1+ (Negative); Protein Urine UA 3+ (Negative); Urobilinogen Urine UA 0.2 E.U./dL (0.2)
[2023-09-24 10:32] LABS: Bacteria Urine None Seen; RBC Urine 1-5/HPF (0-5/HPF); Squamous Epithelial Cell Urine 0-1 /HPF (0-5/HPF); Urine Volume 10mL (spun); WBC Urine 5-10/HPF (0-5/HPF)
[2023-09-24 10:40] LABS: Alanine Aminotransferase 10 IU/L (<50); Albumin 3.3 g/dL (3.5-5.0); Albumin Globulin Ratio 1.6 (1.0-2.8); Alkaline Phosphatase 87 U/L (38-126); Aspartate Aminotransferase 14 IU/L (17-59); BUN Creatinine Ratio 16.3 (6-22); Bilirubin Total 0.5 mg/dL (0.2-1.3); Blood Urea Nitrogen 34 mg/dL (9-20); Calcium 9.4 mg/dL (8.4-10.2); Carbon Dioxide 24 mmol/L (22-32); Chloride 115 mmol/L (98-107); Estimated Glomerular Filt Rate 33 mL/min (>60); Globulin 2.1 g/dL (1.7-4.1); Glucose 92 mg/dL (80-110); HEMOLYSIS < 15 (0-50); Magnesium 2.1 mg/dL (1.6-2.3); Phosphorous 2.8 mg/dL (2.3-3.7); Potassium 4.3 mmol/L (3.4-5.1); Sodium 142 mmol/L (137-145); Total Protein 5.4 g/dL (6.3-8.2)
[2023-09-24 10:58] LABS: Creatinine Urine Random 91.56 mg/dL
[2023-09-24 11:33] LABS: Protein (Total) Urine Random 847 mg/dL (0-12); Protein Creatinine Ratio Urine 9.25 GRAM/24H
[2023-09-25 06:47] LABS: Tacrolimus 5.2 ng/mL (2.0-20.0)
== END ==
LOC: LAB 07:53
PROVIDERS: PCP Internal Medicine; Referring Provider Specialist; Visit Provider Internal Medicine Nephrology
DX: Z94.0 Kidney transplant status (principal); T86.19 Other complication of kidney transplant
CPT/HCPCS: 36415; 80053; 80197; 81001; 82570; 83735; 84100; 84156; 84166; 85025

== ENCOUNTER → 2023-11-06 10:51 | Outpatient (CLI) | payer MEDICARE, OTHER, SELFPAY ==
[2023-08-28 17:00] VITALS: BMI 34.0
[2023-11-06 14:33] LABS: Prostate Specific Antigen 1.44 ng/mL (0.10-4.00)
== END ==
PROVIDERS: PCP Internal Medicine; Referring Provider Specialist; Visit Provider Specialist
DX: R97.20 Elevated prostate specific antigen [PSA] (principal)
CPT/HCPCS: 36415; 84153

== ENCOUNTER → 2023-11-18 10:58 | Outpatient (CLI) | payer MEDICARE, OTHER, SELFPAY ==
[2023-08-28 17:00] VITALS: BMI 34.0
== END ==
PROVIDERS: Visit Provider Specialist
DX: Z87.440 Personal history of urinary (tract) infections (principal)
CPT/HCPCS: 87086

== ENCOUNTER 2024-01-03 21:57 | Emergency (ER) | payer MEDICARE, OTHER, SELFPAY ==
[2023-08-28 17:00] VITALS: BMI 34.0
[2024-01-03 22:06] VITALS: BP 199/93; PULSE 67; RESP 16; TEMP 36.9; O2SAT 97; BMI 32.5
--- NOTE | 2024-01-03 22:27 | DI.CT.S_ITS ---
PROCEDURE: CT HEAD/BRAIN WO CON INDICATIONS: GLF headache/neck tenderness TECHNIQUE: Noncontrast 4.5 mm thick angled axial sections acquired from the foramen magnum to the vertex, with coronal and sagittal reformats. For radiation dose reduction, the following was used: automated exposure control, adjustment of mA and/or kV according to patient size. COMPARISON: None. FINDINGS: Image quality: Diagnostic. CSF spaces: Basal cisterns are patent. No extra-axial fluid collections. The ventricles are symmetric in size and shape. Brain: No intracranial bleeds or masses. There is cerebral volume loss for age, with resultant ventricular and sulcal prominence. There are periventricular and deep white matter chronic small vessel ischemic changes. There is intracranial internal carotid artery atherosclerosis. Skull and face: Moderate-sized acute subcutaneous hematoma in the right posterior parietal/occipital region. No underlying fracture. No other visible soft tissue injury or fracture. Sinuses: Visualized sinuses and mastoids are clear. IMPRESSION: 1. No CT evidence of acute intracranial trauma. 2. Right posterior parieto-occipital subcutaneous hematoma without underlying fracture. Dictated by: Barb Curtis M.D. on 01/03/2024 at 23:46 Approved by: Barb Curtis M.D. on 01/03/2024 at 23:49
--- NOTE | 2024-01-03 22:28 | DI.CT.S_ITS ---
PROCEDURE: CT CERVICAL SPINE WO CON INDICATIONS: GLF headache/neck tenderness TECHNIQUE: Noncontrast 3 mm thick sections acquired from the skull base to the T4 level. Sagittal and coronal reformats were then constructed. For radiation dose reduction, the following was used: automated exposure control, adjustment of mA and/or kV according to patient size. COMPARISON: None. FINDINGS: Image quality: Excellent. Bones: The craniocervical junction is intact. Mild degenerative space loss and spurring at the atlantodental interval. No cervical vertebral body fractures or pathologic subluxation. Moderate disc height loss and mild endplate spurs at C5-6. Soft tissues: Prevertebral soft tissues are normal in thickness. No paravertebral hematomas. No apical pneumothoraces. IMPRESSION: No displaced fracture or traumatic subluxation. Dictated by: Barb Curtis M.D. on 01/04/2024 at 0:19 Approved by: Barb Curtis M.D. on 01/04/2024 at 0:24
--- NOTE | 2024-01-03 22:33 | EKG_ITS ---
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
--- NOTE | 2024-01-03 23:22 | ED.FALL ---
HPI - Fall General Chief Complaint: Fall Stated Complaint: concussion Time Seen by Provider: 01/03/24 23:19 Source: patient Mode of arrival: Ambulatory History of Present Illness HPI Narrative: Patient is a 73-year-old male history of renal cell carcinoma bilateral nephrectomy kidney transplant presenting today with ground level fall. He reports that he was trying to get his dog who heard or saw a deer outside he has not sure how he remembers grabbing hair on the dog but promptly falling to the ground. His neighbor who lives below him heard a very loud some came rushing up and saw him on the ground. He was awake alert but he does think he lost consciousness briefly. He denies any nausea or vomiting no numbness tingling or weakness. He is some mild neck pain. He is obvious right side head contusion. He has had some repetitive conversation. He was otherwise in a normal state of health he denies any other injury numbness tingling or weakness. He has not on anticoagulation medication Related Data Home Medications Medication Instructions Recorded Confirmed allopurinol 100 mg tablet 50 mg PO DAILY 01/25/20 11/18/23 fenofibrate 40 mg tablet 48 mg PO DAILY 01/25/20 11/18/23 mycophenolate sodium 180 mg 180 mg PO BID 01/25/20 11/18/23 tablet,delayed release (Myfortic) prednisone 5 mg tablet 5 mg PO DAILY 01/25/20 11/18/23 tamsulosin 0.4 mg capsule 0.8 mg PO BID 01/28/20 11/18/23 carvedilol 12.5 mg tablet 12.5 mg PO BEDTIME 07/20/20 11/18/23 AirCurve 10 VAuto #1 ea 01/10/21 11/18/23 atorvastatin 40 mg PO QPM 11/22/22 11/18/23 furosemide 40 mg tablet 40 mg PO TID 11/22/22 11/18/23 sildenafil 50 mg tablet 50 mg PO DAILY 08/28/23 11/18/23 Previous Rx's Medication Instructions Recorded insulin aspart U-100 100 unit/mL 10 unit (0.1 mL) SUBCUT TID 05/27/19 (3 mL) subcutaneous pen (Novolog Sliding scale #15 mL FlexPen U-100 Insulin aspart) bisacodyl 10 mg rectal suppository 10 mg AL DAILY PRN constipation 08/30/23 (Dulcolax (bisacodyl)) #12 ea cephalexin 500 mg capsule 500 mg PO TID #42 caps 08/30/23 Allergies Allergy/AdvReac Type Severity Reaction Status Date / Time No Known Drug Allergies Allergy Verified 11/18/23 10:39 Patient History Medical History Erectile dysfunction associated with vasculopathy Erectile dysfunction associated with type 2 diabetes mellitus History of UTI COVID-19 Elevated PSA History of renal cell cancer Urinary retention Flaccid bladder Gout UTI (urinary tract infection) Arthritis Restless legs syndrome (RLS) Type 2 diabetes mellitus (~2000) End-stage renal disease (ESRD) Hyperlipidemia associated with type 2 diabetes mellitus Chronic iron deficiency anemia Gouty arthropathy Asthma Insomnia, persistent Obstructive sleep apnea of adult Hypersomnia Surgical History Kidney transplant status, cadaveric Status post left hip replacement (~2018) Social History marital status: number of children: 1 household members: children education level: college occupational status: previously employed 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 HEENT: Head right parietal contusion no laceration no abrasion no crepitation, but area is quite large about 4 cm x 5 cm NECK: Vertebral tenderness midline with decreased range of motion CARDIOVASCULAR: Regular rate and rhythm without murmurs, rubs or gallops. RESPIRATORY: Breath sounds equal bilaterally, no wheezes rales or rhonchi. ABDOMEN: Soft, nontender. Normoactive bowel sounds all 4 quadrants. No guarding or rebound. EXTREMITIES: Normal range of motion, no clubbing or edema. Neurovascularly intact NEUROLOGICAL: Alert and oriented x4.Normal gait and speech. Cranial nerves II through XII grossly intact. SKIN: Warm, dry, no laceration, no petechiae, no rashes or lesions. Scores GCS [place] coma scale eye opening: Spontaneous [place] coma scale verbal response: Orientated [place] coma scale motor response: Obey commands [place] coma scale total score: 15 Course Orders Ordered: ED Orders 01/03/24 22:21 EKG-12 Lead Stat 01/03/24 22:27 CT head/brain wo con Stat 01/03/24 22:28 CT cervical spine wo con Stat Vital Signs Vital signs: Vital Signs - 8 hr 01/04/24 00:46 Pulse Rate 60 Respiratory Rate 18 Blood Pressure 170/80 H Pulse Oximetry 96 Oxygen Delivery Method Room Air MDM - Fall Imaging Data CT scan - head: Radiologist's Impression: PROCEDURE: CT HEAD/BRAIN WO CON INDICATIONS: GLF headache/neck tenderness TECHNIQUE: Noncontrast 4.5 mm thick angled axial sections acquired from the foramen magnum to the vertex, with coronal and sagittal reformats. For radiation dose reduction, the following was used: automated exposure control, adjustment of mA and/or kV according to patient size. COMPARISON: None. FINDINGS: Image quality: Diagnostic. CSF spaces: Basal cisterns are patent. No extra-axial fluid collections. The ventricles are symmetric in size and shape. Brain: No intracranial bleeds or masses. There is cerebral volume loss for age, with resultant ventricular and sulcal prominence. There are periventricular and deep white matter chronic small vessel ischemic changes. There is intracranial internal carotid artery atherosclerosis. Skull and face: Moderate-sized acute subcutaneous hematoma in the right posterior parietal/occipital region. No underlying fracture. No other visible soft tissue injury or fracture. Sinuses: Visualized sinuses and mastoids are clear. IMPRESSION: 1. No CT evidence of acute intracranial trauma. 2. Right posterior parieto-occipital subcutaneous hematoma without underlying fracture. Dictated by: Barb Curtis M.D. on 01/03/2024 at 23:46 CT - cervical spine: Radiologist's Impression: PROCEDURE: CT CERVICAL SPINE WO CON INDICATIONS: GLF headache/neck tenderness TECHNIQUE: Noncontrast 3 mm thick sections acquired from the skull base to the T4 level. Sagittal and coronal reformats were then constructed. For radiation dose reduction, the following was used: automated exposure control, adjustment of mA and/or kV according to patient size. COMPARISON: None. FINDINGS: Image quality: Excellent. Bones: The craniocervical junction is intact. Mild degenerative space loss and spurring at the atlantodental interval. No cervical vertebral body fractures or pathologic subluxation. Moderate disc height loss and mild endplate spurs at C5-6. Soft tissues: Prevertebral soft tissues are normal in thickness. No paravertebral hematomas. No apical pneumothoraces. IMPRESSION: No displaced fracture or traumatic subluxation. Dictated by: Barb Curtis M.D. on 01/04/2024 at 0:19 Approved by: Barb Curtis M.D. on 01/04/2024 at 0:24 ECG Data Attestation: I personally reviewed and interpreted this ECG as follows: Prior ECG tracings: available for review Interpretation: Normal sinus rhythm rate 66 AL interval [address] changes similar to prior EKGs MDM Narrative Medical decision making narrative: Patient is 73-year-old male presents today with a fall. It sounds it was mechanical trying to grab the dog. He is obvious right hematoma. Not on anticoagulation. Imaging has been reviewed he has no cervical fracture head CT only shows hematoma but no intracranial hemorrhage. He does have headache and is having some concussion like symptoms. EKG overall reassuring without ischemia or arrhythmia. Patient has significant medical history discussion with him about doing blood work however he would decline at this time. He has no vomiting no focal deficits overall feels okay not requiring anything for pain. Discharge Plan Departure Patient Disposition: Home Clinical Impression: Concussion Instructions: Concussion Activity Restrictions/Additional Instructions: *You have been diagnosed with concussion *What to do: At this time expect have headache expect to have some nausea. Her head CT and neck CT do not show any significant abnormality or broken bone *Continue to take medications as directed Tylenol or Motrin as needed for pain *Follow up with your primary care provider in 2-3 days or call [phone] *Return to ER if you should have persistent vomiting increased confusion or any new, worsening or concerning symptoms Prescriptions: No Action allopurinol 100 mg tablet 50 mg PO DAILY fenofibrate 40 mg tablet 48 mg PO DAILY prednisone 5 mg tablet 5 mg PO DAILY mycophenolate sodium [Myfortic] 180 mg tablet,delayed release (DR/EC) 180 mg PO BID furosemide 40 mg tablet 40 mg PO TID Patient Comments: TAKE 3 TABLETS BY MOUTH IN THE MORNING AND 3 TABLETS BEFORE BEDTIME. sildenafil 50 mg tablet 50 mg PO DAILY cephalexin 500 mg capsule 500 mg PO TID Qty: 42 0RF bisacodyl [Dulcolax (bisacodyl)] 10 mg suppository 10 mg AL DAILY PRN (Reason: constipation) Qty: 12 0RF (DME) AirCurve 10 VAuto See Rx Instructions Qty: 1 Dose Instruction: As directed Rx Instructions: Pressure: EPAP 6 IPAP 12 DME: [employer] carvedilol 12.5 mg tablet 12.5 mg PO BEDTIME Rx Instructions: must administer with a meal/food. Takes 1 25mg tab in am and 2 12.5mg at bedtime Novolog FlexPen U-100 Insulin 100 unit/mL (3 mL) insulin pen 10 unit SUBCUT TID Qty: 15 0RF tamsulosin 0.4 mg capsule 0.8 mg PO BID atorvastatin 40 mg PO QPM Referrals: Miscellaneous,Doctor, MD [Primary Care Provider] - Stand Alone Forms: Patient Portal/API
[2024-01-04 00:46] VITALS: BP 170/80; PULSE 60; RESP 18; O2SAT 96
== END 2024-01-04 00:47 | disposition home or self-care (01) ==
PROVIDERS: Emergency Provider Emergency Medicine
DX: S06.0X1A Concussion with loss of consciousness of 30 minutes or less, initial encounter (principal); M54.2 Cervicalgia; I44.0 Atrioventricular block, first degree; R10.9 Unspecified abdominal pain; W18.30XA Fall on same level, unspecified, initial encounter; Z79.899 Other long term (current) drug therapy
CPT/HCPCS: 70450; 72125; 93005; 93010; 99281; 99284